=== PATIENT | female | born 1940 | race Caucasian/White ===

== ENCOUNTER → 2016-12-27 | Outpatient (CLI) | payer MEDICARE ==
[~2016-12-27] MED LIST: APIX5TAB PO; ASP81TEC PO; ASPI-992 PO; ASPI-999 PO; ATEN25TA PO; CEFD300C3 PO; CLOP75TA PO; DIGO250T PO; DILT300C51 PO; FOLI1TAB24 PO; FRSM20T; FURO-125 PO; FURO40TA4 PO; KCL10CCR; LISI-556 PO; METO50TA2 PO; POTA10TA36 PO; SIMV10TA3 PO; TRAM50TA2 PO; VIT1TABL54 PO
== END ==
LOC: CARD 10:45
PROVIDERS: ATTEND Nurse Practitioner Family
DX: I48.0 Paroxysmal atrial fibrillation (principal); I35.8 Other nonrheumatic aortic valve disorders; I25.10 Atherosclerotic heart disease of native coronary artery without angina pectoris; E78.4 Other hyperlipidemia; I10 Essential (primary) hypertension; M79.89 Other specified soft tissue disorders
CPT/HCPCS: 93306

== ENCOUNTER → 2016-12-31 | Outpatient (CLI) | payer MEDICARE ==
[~2016-12-31] VITALS: Ht 175.3 cm; Wt 116.6 kg
[~2016-12-31] MED LIST changes: -ASPI-992 PO; -ASPI-999 PO; -DIGO250T PO; -FURO-125 PO; -LISI-556 PO; -POTA10TA36 PO; +REGADENOSON 0.4 MG/5 ML SYR (LEXISCAN) IV ONE; -TRAM50TA2 PO
[2016-12-31] MEDS: CATHETER FLUSH 10 ML SYR IV PRN ×2 (07:18→09:11)
[2016-12-31 09:04] VITALS: BP 131/102
== END ==
LOC: CARD 07:06
PROVIDERS: ATTEND Nurse Practitioner Family
DX: I48.0 Paroxysmal atrial fibrillation (principal); I35.8 Other nonrheumatic aortic valve disorders; I25.10 Atherosclerotic heart disease of native coronary artery without angina pectoris; E78.4 Other hyperlipidemia; I10 Essential (primary) hypertension; M79.89 Other specified soft tissue disorders
CPT/HCPCS: 78452; 93017

== ENCOUNTER 2017-01-15 11:12 | Emergency (ER) | payer MEDICARE ==
[~2017-01-15] VITALS: Ht 167.6 cm; Wt 54.4 kg
[~2017-01-15 11:12] MED LIST changes: -REGADENOSON 0.4 MG/5 ML SYR (LEXISCAN) IV ONE
[2017-01-15] MEDS ORDERED: TRAM50TA2 PO (11:24)
[2017-01-15] MEDS ORDERED: LISI-556 PO (11:24)
--- OUTSIDE RECORDS SUMMARY | 2017-01-15 11:36 | XMS REPORT | Continuity of Care Document ---
Author Author [facility] Organization [facility] Address Unknown Phone Unavailable Allergies Active Description Code Type Severity Reaction Onset Reported/Identified Relationship to Patient Clinical Status Yes No Known Drug Allergies [id number] Drug Allergy Unknown N/ A 07/18/2009 Medications Problems Date Dx Coded Attending Type Code Diagnosis Diagnosed By 02/23/2010 Ot 518.89 02/23/2010 Ot 922.1 02/23/2010 Ot 959.11 02/23/2010 Ot E000.8 02/23/2010 Ot E817.9 09/25/2012 CB SOTO MD Ot 715.90 OSTEOARTHROS NOS-UNSPEC 09/25/2012 CB SOTO MD Ot 729.5 PAIN IN LIMB 09/25/2012 CB SOTO MD Ot V57.1 PHYSICAL THERAPY NEC 08/25/2013 LINCOLN CASANOVA Ot 280.9 IRON DEFIC ANEMIA NOS 08/25/2013 LINCOLN CASANOVA Ot 728.87 MUSCLE WEAKNESS (GENERALIZED) 08/25/2013 LINCOLN CASANOVA Ot 729.1 MYALGIA AND MYOSITIS NOS 08/25/2013 LINCOLN CASANOVA Ot V58.63 LONG-TERM(CURRENT)USE OF ANTIPLATELET/AN 08/25/2013 LINCOLN CASANOVA Ot V58.66 LONG-TERM (CURRENT) USE OF ASPIRIN 08/25/2013 LINCOLN CASANOVA Ot V58.69 OTH MED,LT,CURRENT USE 06/06/2014 LINDSEY SNIDER SITE INSPECTOR Ot 272.4 06/06/2014 LINDSEY SNIDER SITE INSPECTOR Ot 414.00 06/15/2014 VICENTA DURAN FACC, ARABELLA FACP CCDS Ot 272.4 06/15/2014 VICENTA DURAN FACC, ARABELLA FACP CCDS Ot 278.00 06/15/2014 VCIENTA DURAN FACBishop, ARABELLA FACP CCDS Ot 396.3 06/15/2014 VICENTA MD FACC, ALI FACP CCDS Ot 401.9 06/15/2014 VICENTA DURAN FAC, ALI FACP CCDS Ot 414.00 06/15/2014 VICENTA DURAN FAC, ALI FACP CCDS Ot 790.21 06/15/2014 VICENTA DURAN FAC, ALI FACP CCDS Ot 272.4 06/15/2014 VICENTA DURAN FAC, ALI FACP CCDS Ot 278.00 06/15/2014 VICENTA DURAN FAC, ALI FACP CCDS Ot 401.9 06/15/2014 VICENTA DURAN FAC, ALI FACP CCDS Ot 414.00 06/15/2014 VICENTA DURAN FAC, ALI FACP CCDS Ot 424.1 06/15/2014 VICENTA DURAN FAC, ARABELLA FACP CCDS Ot 790.21 06/15/2014 VICENTA DURAN [facility], ALI FACP CCDS Ot V85.35 08/17/2014 BAIMA, LINDSEY L SITE INSPECTOR Ot 272.4 08/17/2014 BAIMA, LINDSEY L SITE INSPECTOR Ot 401.9 08/17/2014 BAIMA, LINDSEY L SITE INSPECTOR Ot 414.00 08/17/2014 BAIMA, LINDSEY L SITE INSPECTOR Ot 427.31 09/09/2014 BAIMA, LINDSEY L SITE INSPECTOR Ot 272.4 09/09/2014 BAIMA, LINDSEY L SITE INSPECTOR Ot 401.9 09/09/2014 BAIMA, LINDSEY L SITE INSPECTOR Ot 414.00 09/09/2014 BAIMA, LINDSEY L SITE INSPECTOR Ot 427.31 10/13/2014 BAIMA, LINDSEY L SITE INSPECTOR Ot 401.9 10/13/2014 BAIMA, LINDSEY L SITE INSPECTOR Ot 414.9 10/13/2014 BAIMA, LINDSEY L SITE INSPECTOR Ot 424.1 10/13/2014 BAIMA, LINDSEY L SITE INSPECTOR Ot 427.31 10/13/2014 BAIMA, LINDSEY L SITE INSPECTOR Ot V58.61 02/02/2015 Ot 272.4 02/02/2015 Ot 414.01 02/02/2015 Ot V58.69 02/02/2015 Ot 272.4 02/02/2015 Ot 414.01 02/02/2015 Ot V58.69 02/02/2015 Ot 518.89 02/02/2015 Ot 272.4 02/02/2015 Ot 414.00 02/02/2015 Ot V58.69 02/02/2015 Ot 272.4 02/02/2015 Ot 401.9 02/02/2015 Ot 414.00 02/02/2015 Ot V58.69 02/02/2015 Ot 272.4 02/02/2015 Ot 401.9 02/02/2015 Ot V58.69 02/02/2015 Ot 424.1 02/02/2015 Ot 782.3 02/02/2015 Ot 793.2 02/02/2015 Ot 793.89 02/02/2015 Ot V76.12 02/02/2015 Ot 793.89 02/02/2015 Ot 793.89 02/02/2015 Ot V58.69 02/02/2015 Ot V72.63 02/02/2015 Ot 272.4 02/02/2015 Ot 401.9 02/02/2015 Ot 414.00 02/02/2015 Ot V58.69 02/02/2015 Ot 272.4 02/02/2015 Ot 414.00 02/02/2015 Ot V58.69 02/02/2015 Ot 401.9 02/02/2015 Ot 790.29 02/02/2015 Ot V58.69 02/02/2015 Ot 285.9 02/02/2015 BRITTANY DURAN, CB Briscoe Ot 285.9 02/02/2015 BRITTANY DURAN, CB Briscoe Ot 401.9 02/02/2015 BRITTANY DURAN, CB A Ot 790.29 02/02/2015 LINDSEY SNIDER SITE INSPECTOR Ot 272.4 02/02/2015 BRITTANY DURAN, CB Briscoe Ot 250.00 02/02/2015 BRITTANY DURAN, CB Briscoe Ot 401.9 02/02/2015 BRITTANY DURAN, CB A Ot V58.69 02/02/2015 JOCELYNE, BOBAN N Ot 282.40 02/02/2015 JOCELYNE, BOBAN N Ot 429.3 02/02/2015 JOCELYNE, BOBAN N Ot 457.1 02/02/2015 JOCELYNE, BOBAN N Ot 782.3 02/02/2015 TONI PATTERSON SITE INSPECTOR Ot 250.00 02/02/2015 TONI PATTERSON SITE INSPECTOR Ot 272.4 02/02/2015 TONI PATTERSON SITE INSPECTOR Ot V58.69 02/02/2015 VICENTA DURAN FACC, ALI FACP CCDS Ot 280.9 02/02/2015 VICENTA DURAN FACC, ALI FACP CCDS Ot 728.87 02/02/2015 VICENTA DURAN FACC, ALI FACP CCDS Ot 729.1 02/02/2015 VICENTA DURAN FACC, ALI FACP CCDS Ot V58.63 02/02/2015 VICENTA DURAN FACC, ALI FACP CCDS Ot V58.66 02/02/2015 VICENTA DURAN FACC, ALI FACP CCDS Ot V58.69 02/02/2015 OLAYINKA SNIDERHER L SITE INSPECTOR Ot 272.4 02/02/2015 AGATHA, LINDSEY L SITE INSPECTOR Ot 401.9 02/02/2015 AGATHA LINDSEY L SITE INSPECTOR Ot 414.00 02/02/2015 BRITTANY DURAN, CB A Ot 401.9 02/02/2015 LAURA SOTO MDY A Ot V58.69 02/02/2015 AGATHA LINDSEY L SITE INSPECTOR Ot 272.4 02/02/2015 AGATHA LINDSEY L SITE INSPECTOR Ot 414.00 02/02/2015 VICENTA DURAN FACC, ALI FACP CCDS Ot 272.4 02/02/2015 VICENTA DURAN FACC, ALI FACP CCDS Ot 278.00 02/02/2015 VICENTA DURAN FACC, ALI FACP CCDS Ot 396.3 02/02/2015 VICENTA DURAN FACC, ALI FACP CCDS Ot 401.9 02/02/2015 VICENTA DURAN FACC, ALI FACP CCDS Ot 414.00 02/02/2015 VICENTA DURAN FACC, ALI FACP CCDS Ot 790.21 02/02/2015 VICENTA DURAN FACC, ALI FACP CCDS Ot 272.4 02/02/2015 VICENTA DURAN FACC, ALI FACP CCDS Ot 278.00 02/02/2015 VICENTA DURAN FACC, ALI FACP CCDS Ot 401.9 02/02/2015 VICENTA DURAN FACC, ALI FACP CCDS Ot 414.00 02/02/2015 VICENTA DURAN FACC, ALI FACP CCDS Ot 424.1 02/02/2015 VICENTA DURAN FACC, ALI FACP CCDS Ot 790.21 02/02/2015 VICENTA DURAN FACC, ALI FACP CCDS Ot V85.35 02/02/2015 BAIMA, LINDSEY L SITE INSPECTOR Ot 272.4 02/02/2015 BAIMA, LINDSEY L SITE INSPECTOR Ot 401.9 02/02/2015 BAIMA, LINDSEY L SITE INSPECTOR Ot 414.00 02/02/2015 BAIMA, LINDSEY L SITE INSPECTOR Ot 424.1 02/02/2015 BAIMA, LINDSEY L SITE INSPECTOR Ot 427.31 02/02/2015 BAIMA, LINDSEY L SITE INSPECTOR Ot V58.61 02/02/2015 BAIMA, LINDSEY L SITE INSPECTOR Ot 272.4 02/02/2015 BAIMA, LINDSEY L SITE INSPECTOR Ot 401.9 02/02/2015 BAIMA, LINDSEY L SITE INSPECTOR Ot 414.00 02/02/2015 BAIMA, LINDSEY L SITE INSPECTOR Ot 427.31 02/02/2015 BAIMA, LINDSEY L SITE INSPECTOR Ot 401.9 02/02/2015 BAIMA, LINDSEY L SITE INSPECTOR Ot 414.9 02/02/2015 BAIMA, LINDSEY L SITE INSPECTOR Ot 424.1 02/02/2015 BAIMA, LINDSEY L SITE INSPECTOR Ot 427.31 02/02/2015 BAIMA, LINDSEY L SITE INSPECTOR Ot V58.61 02/02/2015 BAHMAN KATE MD Ot I88.9 NONSPECIFIC LYMPHADENITIS, UNSPECIFIED 02/02/2015 BAHMAN KATE MD Ot L03.116 CELLULITIS OF LEFT LOWER LIMB 02/02/2015 BAHMAN KATE MD Ot M79.89 OTHER SPECIFIED SOFT TISSUE DISORDERS 04/11/2015 AGATHA, LINDSEY L SITE INSPECTOR Ot I25.10 06/08/2015 Ot I73.9 06/08/2015 Ot R60.9 06/19/2015 Ot I73.9 06/19/2015 Ot R60.9 09/19/2015 BAIMA, LINDSEY L SITE INSPECTOR Ot E78.5 HYPERLIPIDEMIA, UNSPECIFIED 09/19/2015 BAIMA, LINDSEY L SITE INSPECTOR Ot I10 ESSENTIAL (PRIMARY) HYPERTENSION 09/19/2015 BAIMA LINDSEY L SITE INSPECTOR Ot I25.10 ATHSCL HEART DISEASE OF [place] CORONARY 09/19/2015 AGATHA LINDSEY L SITE INSPECTOR Ot I48.91 UNSPECIFIED ATRIAL FIBRILLATION 09/19/2015 BAIMARK LINDSEY L SITE INSPECTOR Ot I73.9 PERIPHERAL VASCULAR DISEASE, UNSPECIFIED 09/19/2015 LINDSEY SNIDER SITE INSPECTOR Ot R60.9 EDEMA, UNSPECIFIED 10/06/2015 LINDSEY SNIDER SITE INSPECTOR Ot E78.5 HYPERLIPIDEMIA, UNSPECIFIED 10/06/2015 LINDSEY SNIDER SITE INSPECTOR Ot I10 ESSENTIAL (PRIMARY) HYPERTENSION 10/06/2015 LINDSEY SNIDER SITE INSPECTOR Ot I25.10 ATHSCL HEART DISEASE OF [place] CORONARY 10/06/2015 LINDSEY SNIDER SITE INSPECTOR Ot I48.91 UNSPECIFIED ATRIAL FIBRILLATION 10/06/2015 LINDSEY SNIEDR SITE INSPECTOR Ot I73.9 PERIPHERAL VASCULAR DISEASE, UNSPECIFIED 10/06/2015 LINDSEY SNIDER SITE INSPECTOR Ot R60.9 EDEMA, UNSPECIFIED 03/19/2016 Ot 272.4 HYPERLIPIDEMIA NEC/NOS 03/19/2016 Ot 401.9 HYPERTENSION NOS 03/19/2016 Ot 414.00 CORON ATHEROSCLER NOS TYPE VESSEL, NATIV 03/19/2016 Ot V58.69 OTH MED,LT,CURRENT USE 03/19/2016 Ot 272.4 HYPERLIPIDEMIA NEC/NOS 03/19/2016 Ot 401.9 HYPERTENSION NOS 03/19/2016 Ot V58.69 OTH MED,LT,CURRENT USE 03/19/2016 Ot 424.1 AORTIC VALVE DISORDER 03/19/2016 Ot 782.3 EDEMA 03/19/2016 Ot 793.2 NOSP (ABN) FINDINGS ON RADIOLOGICAL OT 03/19/2016 Ot 793.89 OTH (ABN) FINDINGS ON RADIOLOGICAL EXAMI 03/19/2016 Ot V76.12 OTH SCREEN MAMMO-MALIGN NEOPLASM OF [place] 03/19/2016 Ot 793.89 OTH (ABN) FINDINGS ON RADIOLOGICAL EXAMI 03/19/2016 Ot 793.89 OTH (ABN) FINDINGS ON RADIOLOGICAL EXAMI 03/19/2016 Ot V58.69 OTH MED,LT,CURRENT USE 03/19/2016 Ot V72.63 PRE-PROCEDURAL LABORATORY EXAMINATION 03/19/2016 Ot 272.4 HYPERLIPIDEMIA NEC/NOS 03/19/2016 Ot 401.9 HYPERTENSION NOS 03/19/2016 Ot 414.00 CORON ATHEROSCLER NOS TYPE VESSEL, NATIV 03/19/2016 Ot V58.69 OTH MED,LT,CURRENT USE 03/19/2016 Ot 272.4 HYPERLIPIDEMIA NEC/NOS 03/19/2016 Ot 414.00 CORON ATHEROSCLER NOS TYPE VESSEL, NATIV 03/19/2016 Ot V58.69 OTH MED,LT,CURRENT USE 03/19/2016 Ot 401.9 HYPERTENSION NOS 03/19/2016 Ot 790.29 OTHER ABNORMAL GLUCOSE 03/19/2016 Ot V58.69 OTH MED,LT,CURRENT USE 03/19/2016 Ot 285.9 ANEMIA NOS 03/19/2016 BRITTANY DURAN, CB A Ot 285.9 ANEMIA NOS 03/19/2016 BRITTANY DURAN, CB A Ot 401.9 HYPERTENSION NOS 03/19/2016 BRITTANY DURAN, CB A Ot 790.29 OTHER ABNORMAL GLUCOSE 03/19/2016 LINDSEY SNIDER SITE INSPECTOR Ot 272.4 HYPERLIPIDEMIA NEC/NOS 03/19/2016 BRITTANY DURAN, CB Briscoe Ot 250.00 DIAB DAVID WO COMPL, TYPE II OR UNSPEC TY 03/19/2016 CB SOTO MD A Ot 401.9 HYPERTENSION NOS 03/19/2016 CB SOTO MD A Ot V58.69 OTH MED,LT,CURRENT USE 03/19/2016 LINCOLN CASANOVA Ot 282.40 THALASSEMIA, UNSPECIFIED 03/19/2016 LINCOLN CASANOVA Ot 429.3 CARDIOMEGALY 03/19/2016 LINCOLN CASANOVA Ot 457.1 OTHER LYMPHEDEMA 03/19/2016 LINCOLN CASANOVA Ot 782.3 EDEMA 03/19/2016 TONI PATTERSON SITE INSPECTOR Ot 250.00 DIAB DAVID WO COMPL, TYPE II OR UNSPEC TY 03/19/2016 TONI PATTERSON SITE INSPECTOR Ot 272.4 HYPERLIPIDEMIA NEC/NOS 03/19/2016 TONI PATTERSON SITE INSPECTOR Ot V58.69 OTH MED,LT,CURRENT USE 03/19/2016 VICENTA DURAN FACC, ARABELLA FACP CCDS Ot 280.9 IRON DEFIC ANEMIA NOS 03/19/2016 VICENTA DURAN FACC, ALI FACP CCDS Ot 728.87 MUSCLE WEAKNESS (GENERALIZED) 03/19/2016 VICENTA DURAN FACC, ALI FACP CCDS Ot 729.1 MYALGIA AND MYOSITIS NOS 03/19/2016 VICENTA DURAN FACC, ALI FACP CCDS Ot V58.63 LONG-TERM(CURRENT)USE OF ANTIPLATELET/AN 03/19/2016 ARABELLA YADAV MD, FACC FACP CCDS Ot V58.66 LONG-TERM (CURRENT) USE OF ASPIRIN 03/19/2016 VICENTA DURAN FACC, ALI FACP CCDS Ot V58.69 OTH MED,LT,CURRENT USE 03/19/2016 BAIMA, LINDSEY L SITE INSPECTOR Ot 272.4 HYPERLIPIDEMIA NEC/NOS 03/19/2016 BAIMA, LINDSEY L SITE INSPECTOR Ot 401.9 HYPERTENSION NOS 03/19/2016 BAIMA, LINDSEY L SITE INSPECTOR Ot 414.00 CORON ATHEROSCLER NOS TYPE VESSEL, NATIV 03/19/2016 CB SOTO MD Ot 401.9 HYPERTENSION NOS 03/19/2016 CB SOTO MD Ot V58.69 OTH MED,LT,CURRENT USE 03/19/2016 BAIMA, LINDSEY L SITE INSPECTOR Ot 272.4 HYPERLIPIDEMIA NEC/NOS 03/19/2016 BAIMA, LINDSEY L SITE INSPECTOR Ot 414.00 CORON ATHEROSCLER NOS TYPE VESSEL, NATIV 03/19/2016 VICENTA DURAN FACC, ALI FACP CCDS Ot 272.4 HYPERLIPIDEMIA NEC/NOS 03/19/2016 VICENTA DURAN FACC, ALI FACP CCDS Ot 278.00 OBESITY, NOS 03/19/2016 VICENTA DURAN FACC, ALI FACP CCDS Ot 396.3 MITRAL/AORTIC MECCA INSUFF 03/19/2016 VICENTA DURAN FACC, ALI FACP CCDS Ot 401.9 HYPERTENSION NOS 03/19/2016 VICENTA DURAN FACC, ALI FACP CCDS Ot 414.00 CORON ATHEROSCLER NOS TYPE VESSEL, NATIV 03/19/2016 VICENTA DURAN FACC, ALI FACP CCDS Ot 790.21 IMPAIRED FASTING GLUCOSE 03/19/2016 VICENTA DURAN FACC, ALI FACP CCDS Ot 272.4 HYPERLIPIDEMIA NEC/NOS 03/19/2016 VICENTA DURAN FACC, ALI FACP CCDS Ot 278.00 OBESITY, NOS 03/19/2016 VICENTA DURAN FACC, ALI FACP CCDS Ot 401.9 HYPERTENSION NOS 03/19/2016 VICENTA DURAN FACC, ALI FACP CCDS Ot 414.00 CORON ATHEROSCLER NOS TYPE VESSEL, NATIV 03/19/2016 VICENTA DURAN FACC, ALI FACP CCDS Ot 424.1 AORTIC VALVE DISORDER 03/19/2016 VICENTA DURAN FACC, ALI FACP CCDS Ot 790.21 IMPAIRED FASTING GLUCOSE 03/19/2016 VICENTA DURAN FACC, ALI FACP CCDS Ot V85.35 BODY MASS INDEX 35.0-35.9, ADULT 03/19/2016 BAIMA, LINDSEY L SITE INSPECTOR Ot 272.4 HYPERLIPIDEMIA NEC/NOS 03/19/2016 BAIMA, LINDSEY L SITE INSPECTOR Ot 401.9 HYPERTENSION NOS 03/19/2016 BAIMA, LINDSEY L SITE INSPECTOR Ot 414.00 CORON ATHEROSCLER NOS TYPE VESSEL, NATIV 03/19/2016 BAIMA, LINDSEY L SITE INSPECTOR Ot 424.1 AORTIC VALVE DISORDER 03/19/2016 BAIMA, LINDSEY L SITE INSPECTOR Ot 427.31 ATRIAL FIBRILLATION 03/19/2016 BAIMA, LINDSEY L SITE INSPECTOR Ot V58.61 ANTICOAGULANTS,LT,CURRENT USE 03/19/2016 BAIMA, LINDSEY L SITE INSPECTOR Ot 272.4 HYPERLIPIDEMIA NEC/NOS 03/19/2016 BAIMA, LINDSEY L SITE INSPECTOR Ot 401.9 HYPERTENSION NOS 03/19/2016 BAIMA, LINDSEY L SITE INSPECTOR Ot 414.00 CORON ATHEROSCLER NOS TYPE VESSEL, NATIV 03/19/2016 BAIMA, LINDSEY L SITE INSPECTOR Ot 427.31 ATRIAL FIBRILLATION 03/19/2016 BAIMA, LINDSEY L SITE INSPECTOR Ot 401.9 HYPERTENSION NOS 03/19/2016 BAIMA, LINDSEY L SITE INSPECTOR Ot 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 HRT DIS NOS 03/19/2016 BAIMA, LINDSEY L SITE INSPECTOR Ot 424.1 AORTIC VALVE DISORDER 03/19/2016 BAIMA, LINDSEY L SITE INSPECTOR Ot 427.31 ATRIAL FIBRILLATION 03/19/2016 BAIMA, LINDSEY L SITE INSPECTOR Ot V58.61 ANTICOAGULANTS,LT,CURRENT USE 03/19/2016 BAIMA, LINDSEY L SITE INSPECTOR Ot I25.10 ATHSCL HEART DISEASE OF [place] CORONARY 03/19/2016 Ot I73.9 PERIPHERAL VASCULAR DISEASE, UNSPECIFIED 03/19/2016 Ot R60.9 EDEMA, UNSPECIFIED 03/19/2016 BAIMA, LINDSEY L SITE INSPECTOR Ot E78.5 HYPERLIPIDEMIA, UNSPECIFIED 03/19/2016 BAIMA, LINDSEY L SITE INSPECTOR Ot I10 ESSENTIAL (PRIMARY) HYPERTENSION 03/19/2016 BAIMA, LINDSEY L SITE INSPECTOR Ot I25.10 ATHSCL HEART DISEASE OF [place] CORONARY 03/19/2016 BAIMA, LINDSEY L SITE INSPECTOR Ot I48.91 UNSPECIFIED ATRIAL FIBRILLATION 03/19/2016 BAIMA, LINDSEY L SITE INSPECTOR Ot I73.9 PERIPHERAL VASCULAR DISEASE, UNSPECIFIED 03/19/2016 LINDSEY SNIDER SITE INSPECTOR Ot R60.9 EDEMA, UNSPECIFIED 03/19/2016 VICENTA DURAN FACC, ALI FACP CCDS Ot E78.5 HYPERLIPIDEMIA, UNSPECIFIED 03/27/2016 VICENTA DURAN FACC, ALI FACP CCDS Ot E78.5 HYPERLIPIDEMIA, UNSPECIFIED 03/27/2016 VICENTA MD FACC, ALI FACP CCDS Ot I10 ESSENTIAL (PRIMARY) HYPERTENSION 03/27/2016 VICENTA DURAN FACC, ALI FACP CCDS Ot I25.10 ATHSCL HEART DISEASE OF [place] CORONARY 04/18/2016 VICENTA DURAN FACC, ALI FACP CCDS Ot E78.5 HYPERLIPIDEMIA, UNSPECIFIED 04/18/2016 VICENTA DURAN FACBishop, ALI FACP CCDS Ot I10 ESSENTIAL (PRIMARY) HYPERTENSION 04/18/2016 VICENTA DURAN FACC, ALI FACP CCDS Ot I25.10 ATHSCL HEART DISEASE OF [place] CORONARY 12/25/2016 Ot 272.4 HYPERLIPIDEMIA NEC/NOS 12/25/2016 Ot 401.9 HYPERTENSION NOS 12/25/2016 Ot V58.69 OTH MED,LT,CURRENT USE 12/25/2016 Ot 424.1 AORTIC VALVE DISORDER 12/25/2016 Ot 782.3 EDEMA 12/25/2016 Ot 793.2 NOSP (ABN) FINDINGS ON RADIOLOGICAL OT 12/25/2016 Ot 793.89 OTH (ABN) FINDINGS ON RADIOLOGICAL EXAMI 12/25/2016 Ot V76.12 OTH SCREEN MAMMO-MALIGN NEOPLASM OF [place] 12/25/2016 Ot 793.89 OTH (ABN) FINDINGS ON RADIOLOGICAL EXAMI 12/25/2016 Ot 793.89 OTH (ABN) FINDINGS ON RADIOLOGICAL EXAMI 12/25/2016 Ot V58.69 OTH MED,LT,CURRENT USE 12/25/2016 Ot V72.63 PRE-PROCEDURAL LABORATORY EXAMINATION 12/25/2016 Ot 272.4 HYPERLIPIDEMIA NEC/NOS 12/25/2016 Ot 401.9 HYPERTENSION NOS 12/25/2016 Ot 414.00 CORON ATHEROSCLER NOS TYPE VESSEL, NATIV 12/25/2016 Ot V58.69 OTH MED,LT,CURRENT USE 12/25/2016 Ot 272.4 HYPERLIPIDEMIA NEC/NOS 12/25/2016 Ot 414.00 CORON ATHEROSCLER NOS TYPE VESSEL, NATIV 12/25/2016 Ot V58.69 OTH MED,LT,CURRENT USE 12/25/2016 Ot 401.9 HYPERTENSION NOS 12/25/2016 Ot 790.29 OTHER ABNORMAL GLUCOSE 12/25/2016 Ot V58.69 OTH MED,LT,CURRENT USE 12/25/2016 Ot 285.9 ANEMIA NOS 12/25/2016 CB SOTO MD A Ot 285.9 ANEMIA NOS 12/25/2016 CB SOTO MD A Ot 401.9 HYPERTENSION NOS 12/25/2016 CB SOTO MD A Ot 790.29 OTHER ABNORMAL GLUCOSE 12/25/2016 LINDSEY SNIDER SITE INSPECTOR Ot 272.4 HYPERLIPIDEMIA NEC/NOS 12/25/2016 CB SOTO MD Ot 250.00 DIAB DAVID WO COMPL, TYPE II OR UNSPEC TY 12/25/2016 CB SOTO MD Ot 401.9 HYPERTENSION NOS 12/25/2016 CB SOTO MD Ot V58.69 OTH MED,LT,CURRENT USE 12/25/2016 LINCOLN CASANOVA Ot 282.40 THALASSEMIA, UNSPECIFIED 12/25/2016 LINCOLN CASANOVA N Ot 429.3 CARDIOMEGALY 12/25/2016 LINCOLN CASANOVA N Ot 457.1 OTHER LYMPHEDEMA 12/25/2016 LINCOLN CASANOVA N Ot 782.3 EDEMA 12/25/2016 TONI PATTERSON SITE INSPECTOR Ot 250.00 DIAB DAVID WO COMPL, TYPE II OR UNSPEC TY 12/25/2016 TONI PATTERSON SITE INSPECTOR Ot 272.4 HYPERLIPIDEMIA NEC/NOS 12/25/2016 TONI PATTERSON SITE INSPECTOR Ot V58.69 OTH MED,LT,CURRENT USE 12/25/2016 VICENTA DURAN FACC, ARABELLA FACP CCDS Ot 280.9 12/25/2016 VICENTA DURAN FACC, ARABELLA FACP CCDS Ot 728.87 12/25/2016 VICENTA DURAN FACC, ARABELLA FACP CCDS Ot 729.1 12/25/2016 VICENTA DURAN FACC, ARABELLA FACP CCDS Ot V58.63 12/25/2016 VICENTA DURAN FACC, ALI FACP CCDS Ot V58.66 12/25/2016 VICENTA DURAN FACC, ALI FACP CCDS Ot V58.69 12/25/2016 LINDSEY SNIDER SITE INSPECTOR Ot 272.4 HYPERLIPIDEMIA NEC/NOS 12/25/2016 BAIMA, LINDSEY L SITE INSPECTOR Ot 401.9 HYPERTENSION NOS 12/25/2016 BAIMA, LINDSEY L SITE INSPECTOR Ot 414.00 CORON ATHEROSCLER NOS TYPE VESSEL, NATIV 12/25/2016 CB SOTO MD Ot 401.9 HYPERTENSION NOS 12/25/2016 CB SOTO MD Ot V58.69 OTH MED,LT,CURRENT USE 12/25/2016 BAIMA, LINDSEY L SITE INSPECTOR Ot 272.4 HYPERLIPIDEMIA NEC/NOS 12/25/2016 BAIMA, LINDSEY L SITE INSPECTOR Ot 414.00 CORON ATHEROSCLER NOS TYPE VESSEL, NATIV 12/25/2016 VICENTA DURAN FACC, ALI FACP CCDS Ot 272.4 HYPERLIPIDEMIA NEC/NOS 12/25/2016 VICENTA DURAN FACC, ALI FACP CCDS Ot 278.00 OBESITY, NOS 12/25/2016 VICENTA DURAN FACC, ALI FACP CCDS Ot 396.3 MITRAL/AORTIC MECCA INSUFF 12/25/2016 VICENTA GRIJALVAC, ALI FACP CCDS Ot 401.9 HYPERTENSION NOS 12/25/2016 VICENTA GRIJALVAC, ALI FACP CCDS Ot 414.00 CORON ATHEROSCLER NOS TYPE VESSEL, NATIV 12/25/2016 VICENTA DURAN FACC, ALI FACP CCDS Ot 790.21 IMPAIRED FASTING GLUCOSE 12/25/2016 VICENTA DURAN FACC, ALI FACP CCDS Ot 272.4 HYPERLIPIDEMIA NEC/NOS 12/25/2016 VICENTA DURAN FACC, ALI FACP CCDS Ot 278.00 OBESITY, NOS 12/25/2016 VICENTA GRIJALVAC, ALI FACP CCDS Ot 401.9 HYPERTENSION NOS 12/25/2016 VICENTA GRIJALVAC, ALI FACP CCDS Ot 414.00 CORON ATHEROSCLER NOS TYPE VESSEL, NATIV 12/25/2016 VICENTA DURAN FACC, ALI FACP CCDS Ot 424.1 AORTIC VALVE DISORDER 12/25/2016 VICENTA GRIJALVAC, ALI FACP CCDS Ot 790.21 IMPAIRED FASTING GLUCOSE 12/25/2016 VICENTA GRIJALVAC, ALI FACP CCDS Ot V85.35 BODY MASS INDEX 35.0-35.9, ADULT 12/25/2016 BAIMA, LINDSEY L SITE INSPECTOR Ot 272.4 HYPERLIPIDEMIA NEC/NOS 12/25/2016 BAIMA, LINDSEY L SITE INSPECTOR Ot 401.9 HYPERTENSION NOS 12/25/2016 BAIMA, LINDSEY L SITE INSPECTOR Ot 414.00 CORON ATHEROSCLER NOS TYPE VESSEL, NATIV 12/25/2016 BAIMA, LINDSEY L SITE INSPECTOR Ot 424.1 AORTIC VALVE DISORDER 12/25/2016 BAIMA, LINDSEY L SITE INSPECTOR Ot 427.31 ATRIAL FIBRILLATION 12/25/2016 BAIMA, LINDSEY L SITE INSPECTOR Ot V58.61 ANTICOAGULANTS,LT,CURRENT USE 12/25/2016 BAIMA, LINDSEY L SITE INSPECTOR Ot 272.4 HYPERLIPIDEMIA NEC/NOS 12/25/2016 BAIMA, LINDSEY L SITE INSPECTOR Ot 401.9 HYPERTENSION NOS 12/25/2016 BAIMA, LINDSEY L SITE INSPECTOR Ot 414.00 CORON ATHEROSCLER NOS TYPE VESSEL, NATIV 12/25/2016 BAIMA, LINDSEY L SITE INSPECTOR Ot 427.31 ATRIAL FIBRILLATION 12/25/2016 BAIMA, LINDSEY L SITE INSPECTOR Ot 401.9 HYPERTENSION NOS 12/25/2016 BAIMA, LINDSEY L SITE INSPECTOR Ot 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 HRT DIS NOS 12/25/2016 BAIMA, LINDSEY L SITE INSPECTOR Ot 424.1 AORTIC VALVE DISORDER 12/25/2016 BAIMA, LINDSEY L SITE INSPECTOR Ot 427.31 ATRIAL FIBRILLATION 12/25/2016 BAIMA, LINDSEY L SITE INSPECTOR Ot V58.61 ANTICOAGULANTS,LT,CURRENT USE 12/25/2016 BAIMA, LINDSEY L SITE INSPECTOR Ot I25.10 ATHSCL HEART DISEASE OF [place] CORONARY 12/25/2016 Ot I73.9 PERIPHERAL VASCULAR DISEASE, UNSPECIFIED 12/25/2016 Ot R60.9 EDEMA, UNSPECIFIED 12/25/2016 BAIMA, LINDSEY L SITE INSPECTOR Ot E78.5 HYPERLIPIDEMIA, UNSPECIFIED 12/25/2016 BAIMA, LINDSEY L SITE INSPECTOR Ot I10 ESSENTIAL (PRIMARY) HYPERTENSION 12/25/2016 BAIMA, LINDSEY L SITE INSPECTOR Ot I25.10 ATHSCL HEART DISEASE OF [place] CORONARY 12/25/2016 BAIMA, LINDSEY L SITE INSPECTOR Ot I48.91 UNSPECIFIED ATRIAL FIBRILLATION 12/25/2016 BAIMA, LINDSEY L SITE INSPECTOR Ot I73.9 PERIPHERAL VASCULAR DISEASE, UNSPECIFIED 12/25/2016 BAIMA, LINDSEY L SITE INSPECTOR Ot R60.9 EDEMA, UNSPECIFIED 12/25/2016 VICENTA DURAN FACC, ARABELLA SCHUMACHER CCDS Ot E78.5 HYPERLIPIDEMIA, UNSPECIFIED 12/25/2016 VICENTA DURAN FACC, ARABELLA SCHUMACHER CCDS Ot I10 ESSENTIAL (PRIMARY) HYPERTENSION 12/25/2016 VICENTA DURAN FACC, ARABELLA SCHUMACHER CCDS Ot I25.10 ATHSCL HEART DISEASE OF [place] CORONARY 01/01/2017 BAILINDSEY FLORES L SITE INSPECTOR Ot E78.4 OTHER HYPERLIPIDEMIA 01/01/2017 BAILINDSEY FLORES L SITE INSPECTOR Ot I10 ESSENTIAL (PRIMARY) HYPERTENSION 01/01/2017 ABRAMLINDSEY FLORES L SITE INSPECTOR Ot I25.10 ATHSCL HEART DISEASE OF [place] CORONARY 01/01/2017 BAILINDSEY FLORES L SITE INSPECTOR Ot I35.8 OTHER NONRHEUMATIC AORTIC VALVE DISORDER 01/01/2017 BAIOLAYINKA FLORESHER L SITE INSPECTOR Ot I48.0 PAROXYSMAL ATRIAL FIBRILLATION 01/01/2017 BAIMARK LINDSEY L SITE INSPECTOR Ot M79.89 OTHER SPECIFIED SOFT TISSUE DISORDERS Procedures Results Encounters ACCT No. Visit Date/Time Discharge Status Pt. Type Provider Facility Loc./Unit Complaint [id number] 12/31/2016 07:06:00 2016 23:59:59 CLS Outpatient BAIMA, LINDSEY L SITE INSPECTOR Via [facility] CARD CAD [id number] 12/27/2016 10:45:00 2016 23:59:59 CLS Outpatient BAIMA, LINDSEY L SITE INSPECTOR [facility] CARD I48.0 I35.8 I25.10 [id number] 03/19/2016 07:50:00 2015 23:59:59 CLS Outpatient ARABELLA YADAV MD, FACC, FACP CCDS [facility] LAB CAD,HLD,HTN [id number] 03/19/2016 07:30:00 2015 07:30:00 CAN Preadmit ARABELLA YADAV MD, FACC, FACP CCDS [facility] ONC CAD,HLD,HTN [id number] 09/15/2015 07:36:00 2015 23:59:59 CLS Outpatient BAIMA, LINDSEY L SITE INSPECTOR [facility] LAB EDEMA,CLAUDICATION,AF,CAD [id number] 03/15/2015 06:56:00 2014 23:59:59 CLS Outpatient BAIMA, LINDSEY L SITE INSPECTOR [facility] LAB CAD [id number] 02/02/2015 08:54:00 2014 10:37:00 DIS Emergency LAVINIA DURAN, BAHMAN Worrell [facility] ER LEFT LEG/ANKLE SWELLING [id number] 09/08/2014 07:25:00 2014 23:59:59 CLS Outpatient BAIMA, LINDSEY L SITE INSPECTOR [facility] LAB AF,AORTIC VALVE SCLEROSIS [id number] 07/18/2014 09:08:00 2014 23:59:59 CLS Outpatient BAIMA, LINDSEY L SITE INSPECTOR [facility] CARD AFIB [id number] 06/07/2014 07:34:00 2014 23:59:59 CLS Outpatient BAIMA, LINDSEY L SITE INSPECTOR [facility] CARD AFIB [id number] 05/24/2014 07:55:00 2014 23:59:59 CLS Outpatient VICENTA DURAN FACC, ARABELLA SCHUMACHER CCDS [facility] CARD CAD HTN HLE [id number] 05/23/2014 10:32:00 2014 23:59:59 CLS Outpatient VICENTA DURAN FACC, ARABELLA SCHUMACHER CCDS [facility] CARD CAD,AORTIC VALVE SCLEROISIS , HTN,HLD,OBESITY [id number] 05/03/2014 07:20:00 2014 23:59:59 CLS Outpatient BAIMARK LINDSEY L SITE INSPECTOR [facility] LAB HLD,CAD [id number] 12/16/2013 07:22:00 2013 23:59:59 CLS Outpatient CB SOTO MD [facility] LAB HTN,NIDDM [id number] 09/30/2013 07:18:00 2013 23:59:59 CLS Outpatient BAIMA, LINDSEY L SITE INSPECTOR [facility] LAB [place],CAD,HYPERTENSION, HYPERLIPIDEMIA [id number] 07/28/2013 10:15:00 2013 00:01:00 DIS Outpatient LINCOLN CASANOVA [facility] ONC [id number] 07/28/2013 06:58:00 2013 23:59:59 CLS Outpatient YESENIA TONI Andujar SOCORRO [facility] LAB HYPERLIPIDEMIA,DM,PENITENTIARY MED USE [id number] 07/20/2013 09:12:00 2013 23:59:59 CLS Outpatient LINCOLN CASANOVA [facility] RAD THALASSEMIA LOWER EXT LYMPDEMA [id number] 03/26/2013 07:14:00 2012 23:59:59 CLS Outpatient CB SOTO MD [facility] LAB HTN,NIDDM,PENITENTIARY MED USAGE [id number] 11/30/2012 07:18:00 2012 23:59:59 CLS Outpatient LINDSEY SNIDER [facility] LAB HLP,STATIN [place] [id number] 11/04/2012 07:18:00 2012 23:59:59 CLS Outpatient CB SOTO MD [facility] LAB HTN,ABN GLUCOSE,ANEMIA [id number] 09/23/2012 09:38:00 2012 09:33:00 DIS Outpatient CB SOTO MD [facility] REHAB JANICE LEG PAIN,OSTEOARTHRITIS [id number] 05/18/2015 11:40:00 Document Registration [id number] 06/10/2012 08:24:00 Document Registration [id number] 06/05/2012 13:39:00 Document Registration [id number] 06/01/2012 07:22:00 Document Registration [id number] 02/13/2012 07:14:00 Document Registration [id number] 01/08/2012 09:56:00 Document Registration [id number] 01/07/2012 13:32:00 Document Registration [id number] 01/01/2012 10:13:00 Document Registration [id number] 12/19/2011 10:17:00 Document Registration [id number] 08/20/2011 08:12:00 Document Registration [id number] 07/23/2011 07:20:00 Document Registration [id number] 01/30/2011 06:34:00 Document Registration [id number] 07/18/2010 06:40:00 Document Registration [id number] 02/28/2010 13:28:00 Document Registration [id number] 02/23/2010 22:39:00 Document Registration [id number] 02/14/2010 06:35:00 Document Registration [id number] 09/12/2009 05:52:00 Document Registration
[2017-01-15 11:39] LABS: BASOPHILS % (AUTO) 1 % (0-10); EOSINOPHILS # (AUTO) 0.1 10^3/uL (0.0-0.3); EOSINOPHILS % (AUTO) 2 % (0-10); LYMPHOCYTES # (AUTO) 1.8 X 10^3 (1.0-4.0); LYMPHOCYTES % (AUTO) 25 % (12-44); MEAN CORPUSCULAR HEMOGLOBIN 18 PG (25-34); MEAN CORPUSCULAR HGB CONC 31 G/DL (32-36); MEAN CORPUSCULAR VOLUME 59 FL (80-99); MONOCYTES # (AUTO) 0.7 X 10^3 (0.0-1.0); MONOCYTES % (AUTO) 10 % (0-12); NEUTROPHILS # (AUTO) 4.4 X 10^3 (1.8-7.8); NEUTROPHILS % (AUTO) 63 % (42-75); PLATELET COUNT 289 10^3/uL (130-400); RED BLOOD COUNT 5.86 10^6/uL (4.35-5.85); RED CELL DISTRIBUTION WIDTH 19.1 % (10.0-14.5); WHITE BLOOD COUNT 6.9 10^3/uL (4.3-11.0)
[2017-01-15 11:51] LABS: ALANINE AMINOTRANSFERASE 46 U/L (0-55); ALBUMIN 4.3 GM/DL (3.2-4.5); ANION GAP 10 MMOL/L (5-14); ASPARTATE AMINO TRANSFERASE 37 U/L (5-34); BILIRUBIN,TOTAL 0.9 MG/DL (0.1-1.0); BLOOD UREA NITROGEN 15 MG/DL (7-18); BUN/CREATININE RATIO 20; CALCIUM 9.5 MG/DL (8.5-10.1); CARBON DIOXIDE 23 MMOL/L (21-32); CHLORIDE 108 MMOL/L (98-107); CREATININE SERUM 0.76 MG/DL (0.60-1.30); GFR ESTIMATED > 60; GLUCOSE 138 MG/DL (70-105); SODIUM 141 MMOL/L (135-145); TOTAL PROTEIN 7.2 GM/DL (6.4-8.2)
[2017-01-15 11:57] LABS: TROPONIN I < 0.30 NG/ML (<0.30)
--- NOTE | 2017-01-15 12:10 | ED Respiratory ---
General Chief Complaint: Respiratory Problems Stated Complaint: CHEST DISCOMFORT/SOB X 3 DAYS Nursing Triage Note: PT CO OF SOA AMBULATED TO ROOM 5, PT HR 136 PT CO OF SOA FOR A FEW DAYS.PT HAS LYMPHEDEMA IN LOWER EXT. Source: patient Exam Limitations: no limitations History of Present Illness Time seen by provider: 12:06 Initial Comments The patient is a 76-year-old white female known to me. She reports that over the last 3 days she is become increasingly short of breath. She had recently seen ARABELLA Ochoa in the office. She states that she had an echocardiogram and a cardiac stress test. She is known to have a heart murmur, atrial fibrillation on Eliquis, and a remote stent. She was scheduled to have a sleep apnea study and a coronary angiogram tentatively scheduled for next Friday. She has had chronic lymphedema bilaterally and is unable to state that there is more swelling. She has not specifically had chest pain. She states that she is gaining some 30 pounds over the last year but none recently. She states it is impossible for her to lie supine and breathe and sleep. Timing/Duration: week, getting worse Severity: moderate Prior Episodes/Possible Cause: occasional episodes Modifying Factors: Improves With Lying Down Associated Symptoms: other Allergies and Home Medications Allergies Coded Allergies: No Known Drug Allergies (Verified , 07/18/09) Home Medications Apixaban 5 Mg Tablet, 5 MG PO BID, #60 (Reported) Aspirin 81 Mg Tabec, 81 MG PO DAILY, (Reported) Cefdinir 300 Mg Capsule, 300 MG PO BID, #20 Prescribed by: BAHMAN KATE on 02/02/15 1028 Folic Acid 1 Mg Tablet, 1 MG PO DAILY, (Reported) Lisinopril 5 Mg Tablet, 5 MG PO DAILY, (Reported) Metoprolol Tartrate 50 Mg Tablet, 100 MG PO DAILY, (Reported) Tramadol HCl 50 Mg Tablet, 50 MG PO PRN, (Reported) Vit B12/Intrins Fact/Fa Cmb #2 1 Each Tablet, 1 TAB PO DAILY, Ref 0 (Reported) Constitutional: see HPI EENTM: no symptoms reported Respiratory: see HPI, orthopnea, short of breath Cardiovascular: palpitations Gastrointestinal: no symptoms reported Genitourinary: no symptoms reported Musculoskeletal: no symptoms reported Skin: no symptoms reported Psychiatric/Neurological: No Symptoms Reported Hematologic/Lymphatic: No Symptoms Reported Immunological/Allergic: no symptoms reported Past Kqqwbzt-Hdkbnu-Lsfmjc Hx Patient Social History Alcohol Use: Denies Use Recreational Drug Use: No Smoking Status: Never a Smoker Recent Foreign Travel: No Contact w/Someone Who Travel: No Recent Infectious Disease Expo: No Physical Abuse: No Sexual Abuse: No Immunizations Up To Date Date of Pneumonia Vaccine: Apr 21, 2013 Surgeries Surgeries: Orthopedic Cardiovascular Cardiac Disorders: Atrial Fibrillation, Hypertension Reproductive System Hx Reproductive Disorders: No Psychosocial Suicide Risk Score: 0 Physical Exam Vital Signs Vital Sign - Last 12Hours 01/15/17 11:15 Temp 97.5 Pulse 135 Resp 11 B/P (MAP) 164/116 Pulse Ox 96 O2 Delivery Room Air Capillary Refill : Less Than 3 Seconds General Appearance: mild distress Eyes: Bilateral Eye Normal Inspection HEENT: normal ENT inspection Neck: full range of motion Respiratory: decreased breath sounds (distant but no Rales wheezing or rhonchi) Cardiovascular: systolic murmur (grade 2 right and left second intercostal space), irregularly irregular Gastrointestinal: normal bowel sounds, non tender, no organomegaly 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, no motor/sensory deficits, alert, normal mood/affect, oriented x 3 Symmetric rubbery edema bilaterally to the knees and consistent with lymphedema Progress/Results/Core Measures Results/Orders Lab Results Laboratory Tests Test 01/15/17 11:19 01/15/17 12:40 Range/Units White Blood Count 6.9 4.3-11.0 10^3/uL Red Blood Count 5.86 H 4.35-5.85 10^6/uL Hemoglobin 10.8 L 11.5-16.0 G/DL Hematocrit 35 35-52 % Mean Corpuscular Volume 59 L 80-99 FL Mean Corpuscular Hemoglobin 18 L 25-34 PG Mean Corpuscular Hemoglobin Concent 31 L 32-36 G/DL Red Cell Distribution Width 19.1 H 10.0-14.5 % Platelet Count 289 130-400 10^3/uL Mean Platelet Volume 7.4-10.4 FL Neutrophils (%) (Auto) 63 42-75 % Lymphocytes (%) (Auto) 25 12-44 % Monocytes (%) (Auto) 10 0-12 % Eosinophils (%) (Auto) 2 0-10 % Basophils (%) (Auto) 1 0-10 % Neutrophils # (Auto) 4.4 1.8-7.8 X 10^3 Lymphocytes # (Auto) 1.8 1.0-4.0 X 10^3 Monocytes # (Auto) 0.7 0.0-1.0 X 10^3 Eosinophils # (Auto) 0.1 0.0-0.3 10^3/uL Basophils # (Auto) 0.0 0.0-0.1 10^3/uL Sodium Level 141 135-145 MMOL/L Potassium Level 4.0 3.6-5.0 MMOL/L Chloride Level 108 H 98-107 MMOL/L Carbon Dioxide Level 23 21-32 MMOL/L Anion Gap 10 5-14 MMOL/L Blood Urea Nitrogen 15 7-18 MG/DL Creatinine 0.76 0.60-1.30 MG/DL Estimat Glomerular Filtration Rate > 60 BUN/Creatinine Ratio 20 Glucose Level 138 H 70-105 MG/DL Calcium Level 9.5 8.5-10.1 MG/DL Total Bilirubin 0.9 0.1-1.0 MG/DL Aspartate Amino Transf (AST/SGOT) 37 H 5-34 U/L Alanine Aminotransferase (ALT/SGPT) 46 0-55 U/L Alkaline Phosphatase 60 40-136 U/L Troponin I < 0.30 <0.30 NG/ML Total Protein 7.2 6.4-8.2 GM/DL Albumin 4.3 3.2-4.5 GM/DL Magnesium Level 2.0 1.8-2.4 MG/DL My Orders Orders - BAHMAN KATE MD Cbc With Automated Diff (01/15/17 11:34) Comprehensive Metabolic Panel (01/15/17 11:34) Troponin I (01/15/17 11:34) Ua Culture If Indicated (01/15/17 11:34) Ekg Tracing (01/15/17 11:34) Chest 1 View, Ap/Pa Only (01/15/17 11:34) Furosemide Injection (Lasix Injection) (01/15/17 13:00) Magnesium (01/15/17 12:58) Medications Given in ED Current Medications Medications Dose Ordered Sig/Joao Route Start Time Stop Time Status Last Admin Dose Admin Furosemide 40 mg ONCE ONCE IVP 01/15/17 13:00 01/15/17 13:01 DC 01/15/17 13:07 40 MG Vital Signs/I&O Vital Sign - Last 12Hours 01/15/17 11:15 Temp 97.5 Pulse 135 Resp 11 B/P (MAP) 164/116 Pulse Ox 96 O2 Delivery Room Air Blood Pressure Mean: 132 Departure Communication (Admissions) Progress Notes 1255 discussed with ARABELLA Ochoa. We will give a dose of IV Lasix and observe. Impression Impression: Primary Impression: pulmonary edema Disposition: HOME, SELF-CARE Condition: Stable/Unchanged Departure-Patient Inst. Decision time for Depature: 13:35 Referrals: CB SOTO MD (PCP/Family) Primary Care Physician Add. Discharge Instructions: All discharge instructions reviewed with patient and/or family. Voiced understanding. Expect to have the several hours of urgent urination. Call ARABELLA Ochoa's office for an appointment tomorrow or Friday. Take Lasix provided you in the a.m. expect that for an hour or 2 you will need to stay close to a bathroom. Scripts Furosemide (Lasix) 20 Mg Tablet 20 MG PO each a.m., #10 TAB Prov: BAHMAN KATE MD 01/15/17 BAHMAN KATE MD Jan 15, 2017 12:10
--- NOTE | 2017-01-15 12:16 | Diagnostic Imaging Report ---
CLINICAL INDICATION: Patient complains of shortness of air. Patient has tachycardia. Patient has lymphedema of lower extremities. EXAM: Portable chest x-ray upright view. COMPARISONS: Chest x-ray dated 02/23/2010. FINDINGS: There is kbqlfoni-jm-ninrlm cardiomegaly seen which has increased compared to the prior study. There is minimal pulmonary vascular congestion. There is interval development of a small right pleural effusion. There is mild bibasilar atelectasis versus infiltrate. There is no pneumothorax. There are degenerative spurs seen throughout spine. IMPRESSION: 1: There is interval progression of cardiomegaly and minimal pulmonary vascular congestion concerning for congestive heart failure/cardiac decompensation. Given the size of the cardiac silhouette, pericardial effusion cannot be completely excluded. Echocardiogram may help better evaluate if clinically necessary. 2: There is interval development of a small right pleural effusion. 3: There is interval development of mild bibasilar atelectasis versus infiltrate. Dictated by: Dictated on workstation # [id number]
[2017-01-15] MEDS ORDERED: FUROSEMIDE 40 MG/4 ML INJ (LASIX) IVP ONE (13:00)
[2017-01-15] MEDS ORDERED: FURO-125 PO (13:38)
[2017-01-15 13:43] VITALS: BP 134/96
[2017-01-15 13:53] LABS: BILIRUBIN,URINE NEGATIVE (NEGATIVE); KETONES,URINE NEGATIVE (NEGATIVE); LEUKOCYTE ESTERASE ,URINE NEGATIVE (NEGATIVE); NITRITE,URINE NEGATIVE (NEGATIVE); PH,URINE 6 (5-9); PROTEIN,URINE NEGATIVE (NEGATIVE); UROBILINOGEN,URINE NORMAL (NORMAL)
[2017-01-15 14:00] LABS: SQUAMOUS EPITHELIAL CELL,UR RARE /HPF
== END 2017-01-15 13:43 | disposition home or self-care (01) ==
LOC: EDUNIT# 11:12 → ER 11:14
DX: J81.1 Chronic pulmonary edema (principal); I48.91 Unspecified atrial fibrillation; I10 Essential (primary) hypertension; Z79.82 Long term (current) use of aspirin
CPT/HCPCS: 36415; 71010; 80053; 81000; 83735; 84484; 85025; 93005; 96374

== ENCOUNTER 2017-01-16 19:59 | Outpatient (CLI) | payer MEDICARE ==
[~2017-01-16 19:59] MED LIST changes: +FURO-125 PO; +LISI-556 PO; +TRAM50TA2 PO
== END 2017-01-17 06:20 | disposition home or self-care (01) ==
LOC: SLEEP 19:59
PROVIDERS: ATTEND Otolaryngology Otolaryngology/Facial Plastic Surgery
DX: G47.33 Obstructive sleep apnea (adult) (pediatric) (principal)
CPT/HCPCS: 95810

== ENCOUNTER 2017-01-21 06:58 | Day surgery (SDC) | payer MEDICARE ==
[2017-01-21] VITALS (10 sets, daily range): BP systolic 120–130; BP diastolic 77–112
[~2017-01-21] VITALS: Ht 175.3 cm; Wt 116.1 kg
[~2017-01-21 06:58] MED LIST changes: +HEParin (CATH LAB) 2,000 ML IV ONE; +NS IV 1000 ML 1,000 ML ONE
[2017-01-21 07:29] LABS: MEAN CORPUSCULAR HEMOGLOBIN 19 PG (25-34); MEAN CORPUSCULAR HGB CONC 32 G/DL (32-36); MEAN CORPUSCULAR VOLUME 58 FL (80-99); PLATELET COUNT 321 10^3/uL (130-400); RED BLOOD COUNT 6.63 10^6/uL (4.35-5.85); RED CELL DISTRIBUTION WIDTH 19.6 % (10.0-14.5)
[2017-01-21] MEDS ORDERED: ASPI-992 PO (07:37)
[2017-01-21] MEDS ORDERED: POTA10TA36 PO (07:37)
[2017-01-21] MEDS ORDERED: APIX5TAB PO (07:37)
[2017-01-21] MEDS ORDERED: DIGO250T PO (07:37)
[2017-01-21] MEDS ORDERED: FURO40TA4 PO (07:37)
[2017-01-21 07:39] LABS: PROTHROMBIN TIME PATIENT 13.1 SEC (12.2-14.7)
[2017-01-21] MEDS ORDERED: NS IV 1000 ML 1,000 ML IV SCH ×2 (07:45→10:18)
[2017-01-21] MEDS ORDERED: INFLUENZA TRIvalent 2017-2018 0.5 ML/45 MCG SYR IM ONE (07:45)
[2017-01-21 07:50] LABS: ALBUMIN 4.7 GM/DL (3.2-4.5); CALCIUM 9.6 MG/DL (8.5-10.1); CREATININE SERUM 0.99 MG/DL (0.60-1.30); TOTAL PROTEIN 7.9 GM/DL (6.4-8.2)
[2017-01-21] MEDS ORDERED: fentaNYL INJECTION 100 MCG/2 ML AMP ONE ×2 (08:23→09:44)
[2017-01-21] MEDS ORDERED: MIDAZOLAM 5 MG/5 ML (VERSED) VIAL ONE (08:23)
[2017-01-21] MEDS ORDERED: diphenhydrAMINE 50 MG/ML INJ (BENADRYL) ONE (08:23)
[2017-01-21] MEDS ORDERED: MIDAZOLAM 2 MG/2 ML (VERSED) VIAL ONE (09:44)
--- NOTE | 2017-01-21 10:18 | Cardiac Procedure Note-CS/ASA ---
Pre-Procedure Note Pre-Op Procedure Note H&P Reviewed The H&P was reviewed, patient examined and no changes noted. Date H&P Reviewed: Jan 21, 2017 Time H&P Reviewed: 08:30 Conscious Sedation Pre-Proced Time Reviewed: 08:30 ASA Class: 3 Airway Mallampati Classification: (navajo appropriate class) I. II. III, IV Lungs Heart ASA score ASA 1: a normal healthy patient ASA 2: a patient with a mild systemic disease (mid diabetes, controlled hypertension, obesity ASA 3: a patient with a severe systemic disease that limits activity (angina , COPD, prior Myocardial infarction) ASA 4: a patient with an incapacitating disease that is a constant threat to life (CHF, renal failure) ASA 5: a moribund patient not expected to survive 24 hrs. (ruptured aneurysm) ASA 6: a declared brain patient whose organs are being harvested. For emergent operations, add the letter E after the classification Grade 2 Sedation Plan: Analgesia, Amnesia, Plan communicated to team members, Discussed options with patient/fam, Discussed risks with patient/fam Note The patient is an appropriate candidate to undergo the planned procedure, sedation, and anesthesia. The patient immediately re-assessed prior to indication. ARABELLA YADAV MD FACP FAC CCDS Jan 21, 2017 10:18
[2017-01-21] MEDS ORDERED: ASPI-999 PO (10:21)
--- NOTE | 2017-01-21 10:21 | Discharge Inst-Post CATH ---
Discharge Inst-CATH Post Cardiac Cath D/C Inst Follow Up/Plan F/u with Dr Peguero next week CARDIAC CATH DISCHARGE INSTRUCTIONS *Hold Metformin for 48 hours post heart cath. ACTIVITY * Go Home directly and rest. * Limit activity of the leg (or wrist if it was used) for 7 days including aerobics, swimming, jogging, bicycling, etc. * Restrict stair-climbing for 7 days if possible, if not, climb up with your non -cath leg, then bring together on the same step. * Avoid lifting, pushing, pulling or excessive movement of the affected extremity for 7 days. * Customary sexual activity may be resumed after 2 days-use caution not to use a position that strains or causes pain to the affected extremity. * No driving for 24 hours. * NO SMOKING. * Avoid straining for bowel movements for 7 days. * Gentle walking on level ground is allowed. * Returning to work will depend on the type of procedure and the results. Your doctor will discuss this with you. CALL YOUR DOCTOR FOR ANY OF THE FOLLOWING: *If bleeding from the puncture site occurs- Apply gentle pressure to site with clean cloth and call your doctor or EMS. * If a knot or lump forms under the skin, increases in size, or causes pain. * If bruising appears to be worsening or moving further down your leg instead of disappearing. * Temperature above 101 F. CARE OF YOUR GROIN INCISION; * Bruising or purple discoloration of the skin near the puncture site is common. * You may shower only, no bathtub bathing for 5 days. Be careful to avoid slipping as your leg may feel stiff. * If a closure device was used on your femoral artery, please see the attached guide regarding care of the device and your leg. * REMOVE the dressing from your groin the next day after your procedure in the shower. CARE OF YOUR WRIST INCISION; * Bruising or purple discoloration of the skin near the puncture site is common. * You may shower. * DO NOT submerge wrist. * Remove dressing in 24 hours. ARABELLA PEGUERO MD [facility] Jan 21, 2017 10:21
--- NOTE | 2017-01-21 10:22 | Discharge Inst-Cardiology ---
Discharge Inst-Cardiac Discharge Medications New Medications: Aspirin (Aspirin) 81 Mg Tab.chew 81 MG PO DAILY, #90 TAB 3 Refills Continued Medications: Apixaban (Eliquis) 5 Mg Tablet 5 MG PO BID, TAB Aspirin/Acetaminophen/Caffeine (Excedrin Extra Strength Caplet) 1 Each Tablet 1 EACH PO PRN PRN for PAIN-MILD, TAB Digoxin (Digoxin) 250 Mcg Tablet 250 MCG PO DAILY, TAB Folic Acid (Folic Acid) 1 Mg Tablet 1 MG PO DAILY, TAB Furosemide (Furosemide) 40 Mg Tablet 40 MG PO DAILY, TAB Lisinopril (Lisinopril) 5 Mg Tablet 5 MG PO DAILY, TAB Metoprolol Tartrate (Metoprolol Tartrate) 50 Mg Tablet 100 MG PO DAILY, TAB Potassium Chloride (Potassium Chloride) 10 Meq Tab.er.prt 10 MEQ PO DAILY Tramadol HCl (Tramadol HCl) 50 Mg Tablet 50 MG PO Q6HR PRN for PAIN-MILD, TAB Discontinued Medications: Aspirin (Aspirin Ec 81 Mg) 81 Mg Tabec 81 MG PO DAILY Patient Instructions Patient Instructions: Change aspirin to chewable aspirin 81 mg daily ARABELLA YADAV MD FACP FAC CCDS Jan 21, 2017 10:22
[2017-01-21] MEDS ORDERED: PATIENT MAY USE OWN MEDS, ALL PO SCH (10:30)
--- NOTE | 2017-01-21 11:59 | CARDIAC CATHETERIZATION ---
DATE OF SERVICE: 01/21/2017 HISTORY OF PRESENT ILLNESS: The patient is a 76-year-old lady with cardiomyopathy that has been diagnosed relatively recently. Cardiac catheterization was carried out today after having obtained an informed consent. PROCEDURE: She was brought to the cardiac catheterization laboratory in a fasting state. The right groin was prepared and draped in the usual sterile fashion. Lidocaine 1% local anesthesia. Modified Seldinger technique was used to advance a 5-Georgian sheath into the right femoral artery. A 5-Georgian JL4 catheter used for left coronary angiography. Right coronary angiography was very difficult. We used multiple catheters including JR4, Glynn right, AL2, AR mod, and multipurpose catheters. None of these could selectively engage the right coronary artery. We got fairly good views with nonselective engagement with the AL2 catheter. We used a 5-Georgian pigtail catheter to carry out aortic root angiography. We made multiple attempts to cross the aortic valve for left ventricular angiography, but were not able to do so. The patient was getting quite uncomfortable on the table, despite medications and we decided to stop further attempts. At the end of the procedure, Mynx was used to achieve hemostasis following sheath removal. Angiography of the right femoral artery had been carried out at the time of the sheath insertion. She was transferred to the cardiac catheterization laboratory in stable condition. HEMODYNAMICS: Ascending aortic pressure was 113/84 with a mean of 74 mmHg. We were not able to cross the aortic valve. AORTIC ROOT ANGIOGRAPHY: Aortic root angiography indicates mild to moderate dilation of the ascending aorta and the aortic arch. There does not appear to be aneurysm formation. The aorta appears on unraveled. The aortic valve leaflets exhibit diminished but fair leaflet excursion. There is moderate aortic valve calcification. There appears to be mild aortic regurgitation. CORONARY ANGIOGRAPHY: There is moderate proximal coronary calcification. Left main coronary artery does not exhibit significant obstructive disease. Left anterior descending artery has a widely patent stent in its mid portion that is known to be almost 3 x 16 mm stent placed in 2009. The first diagonal branch of the left anterior descending artery is of a relatively small caliber and has a relatively long up to 80% stenosis in its proximal portion. The left circumflex artery has mild diffuse plaque. The right coronary artery appears dominant and does not exhibit significant disease. CONCLUSIONS: 1. Coronary artery disease as outlined above. There is a widely patent stent in the mid left anterior descending artery. This is known to be Promus 3.0 x 16 mm stent placement in 2010. The first diagonal branch of the left anterior descending artery is a relatively small caliber and has a relatively long 80% stenosis in its proximal portion. 2. The right coronary and the left circumflex artery have diffuse mild to moderate disease. 3. Mild to moderate dilatation of the ascending aorta and the aortic arch and unfolding of the aortic arch. 4. Aortic valve sclerosis and mild aortic regurgitation is exhibited on aortic root angiography. DISCUSSION AND RECOMMENDATIONS: Based on results of the study, it appears appropriate to continue a conservative approach. The first diagonal branch does have disease, but the vessel is of a relatively small caliber with a relatively long lesion and medical therapy appears to be the best option at this time. We have advised close continuing outpatient followup. Job ID: [id number] DocumentID: [id number] Dictated Date: 01/21/2017 10:13:46 Veneer Sander Date: 01/21/2017 11:58:37 Dictated By: ARABELLA YADAV MD, MA, FACP, FACC,
== END 2017-01-21 13:30 | disposition home or self-care (01) ==
LOC: CATH 06:58 → SURG 10:24 → CATH 13:30
PROVIDERS: ATTEND Internal Medicine Cardiovascular Disease
DX: I42.0 Dilated cardiomyopathy (principal); I25.10 Atherosclerotic heart disease of native coronary artery without angina pectoris; I35.1 Nonrheumatic aortic (valve) insufficiency; I48.2 Chronic atrial fibrillation; I10 Essential (primary) hypertension; E66.9 Obesity, unspecified; R73.09 Other abnormal glucose; Z68.37 Body mass index [BMI] 37.0-37.9, adult; Z79.899 Other long term (current) drug therapy; Z79.01 Long term (current) use of anticoagulants; Z95.5 Presence of coronary angioplasty implant and graft
CPT/HCPCS: 36415; 80053; 80061; 85027; 85610; 85730; 87081; 93005; 93454; 93567

== ENCOUNTER → 2017-01-31 | Outpatient (CLI) | payer MEDICARE ==
[~2017-01-31] MED LIST changes: +ASPI-992 PO; +ASPI-999 PO; +DIGO250T PO; -HEParin (CATH LAB) 2,000 ML IV ONE; -NS IV 1000 ML 1,000 ML ONE; +POTA10TA36 PO
[2017-01-31 12:49] LABS: ANION GAP 13 MMOL/L (5-14); BLOOD UREA NITROGEN 24 MG/DL (7-18); BUN/CREATININE RATIO 29; CALCIUM 9.8 MG/DL (8.5-10.1); CARBON DIOXIDE 22 MMOL/L (21-32); CHLORIDE 104 MMOL/L (98-107); CREATININE SERUM 0.84 MG/DL (0.60-1.30); GFR ESTIMATED > 60; GLUCOSE 168 MG/DL (70-105); MAGNESIUM 1.7 MG/DL (1.8-2.4); POTASSIUM 4.2 MMOL/L (3.6-5.0); SODIUM 139 MMOL/L (135-145)
[2017-01-31 12:56] LABS: DIGOXIN 0.72 NG/ML (0.80-2.00)
== END ==
LOC: LAB 12:16
PROVIDERS: ATTEND Nurse Practitioner Family
DX: I50.22 Chronic systolic (congestive) heart failure (principal); I48.0 Paroxysmal atrial fibrillation
CPT/HCPCS: 36415; 80048; 80162; 83735

== ENCOUNTER → 2017-04-04 | Outpatient (CLI) | payer MEDICARE ==
[~2017-04-04] MED LIST changes: +METO50TA15 PO; -METO50TA2 PO
[2017-04-04 07:47] LABS: MAGNESIUM 1.9 MG/DL (1.8-2.4)
[2017-04-04 07:59] LABS: ANION GAP 13 MMOL/L (5-14); BLOOD UREA NITROGEN 14 MG/DL (7-18); BUN/CREATININE RATIO 18; CALCIUM 9.9 MG/DL (8.5-10.1); CARBON DIOXIDE 24 MMOL/L (21-32); CHLORIDE 101 MMOL/L (98-107); CREATININE SERUM 0.79 MG/DL (0.60-1.30); GFR ESTIMATED > 60; GLUCOSE 259 MG/DL (70-105); POTASSIUM 4.3 MMOL/L (3.6-5.0); SODIUM 138 MMOL/L (135-145)
[2017-04-04 08:00] LABS: DIGOXIN 0.47 NG/ML (0.80-2.00)
== END ==
LOC: LAB 07:24
PROVIDERS: ATTEND Internal Medicine Cardiovascular Disease
DX: I48.0 Paroxysmal atrial fibrillation (principal); I42.0 Dilated cardiomyopathy; E78.4 Other hyperlipidemia; I50.21 Acute systolic (congestive) heart failure; I25.10 Atherosclerotic heart disease of native coronary artery without angina pectoris; I11.0 Hypertensive heart disease with heart failure; R73.01 Impaired fasting glucose; E66.09 Other obesity due to excess calories
CPT/HCPCS: 36415; 80048; 80162; 83735

== ENCOUNTER → 2017-04-30 | Outpatient (CLI) | payer MEDICARE | LOC: CARD 11:35 | PROVIDERS: ATTEND Internal Medicine Cardiovascular Disease | DX: I11.0 Hypertensive heart disease with heart failure (principal); I50.21 Acute systolic (congestive) heart failure; I48.0 Paroxysmal atrial fibrillation; I25.10 Atherosclerotic heart disease of native coronary artery without angina pectoris; I42.0 Dilated cardiomyopathy; E78.4 Other hyperlipidemia; R73.01 Impaired fasting glucose; E66.09 Other obesity due to excess calories | CPT/HCPCS: 93306 ==

== ENCOUNTER 2017-05-02 14:15 | Observation (INO) | payer MEDICARE ==
[~2017-05-02] VITALS: Ht 175.3 cm; Wt 105.7 kg
[2017-05-02] MEDS ORDERED: NS IV 1000 ML 1,000 ML IV ONE (15:34)
[2017-05-02] MEDS ORDERED: inSUlin (REGULAR) HUMAN 1 UNIT/0.01 ML (CHARGE PER UNIT) IV STA (15:34)
[2017-05-02 15:42] LABS: BILIRUBIN,URINE NEGATIVE (NEGATIVE); CLARITY,URINE CLEAR; COLOR,URINE YELLOW; GLUCOSE, URINE (UA) 4+ (NEGATIVE); KETONES,URINE 2+ (NEGATIVE); LEUKOCYTE ESTERASE ,URINE 1+ (NEGATIVE); NITRITE,URINE NEGATIVE (NEGATIVE); PH,URINE 5 (5-9); PROTEIN,URINE NEGATIVE (NEGATIVE); UROBILINOGEN,URINE NORMAL (NORMAL)
[2017-05-02 15:49] LABS: BASOPHILS % (AUTO) 0 % (0-10); EOSINOPHILS # (AUTO) 0.1 10^3/uL (0.0-0.3); EOSINOPHILS % (AUTO) 1 % (0-10); HEMATOCRIT 38 % (35-52); HEMOGLOBIN 12.3 G/DL (11.5-16.0); LYMPHOCYTES # (AUTO) 1.7 X 10^3 (1.0-4.0); LYMPHOCYTES % (AUTO) 18 % (12-44); MEAN CORPUSCULAR HEMOGLOBIN 19 PG (25-34); MEAN CORPUSCULAR HGB CONC 33 G/DL (32-36); MEAN CORPUSCULAR VOLUME 57 FL (80-99); MONOCYTES # (AUTO) 0.9 X 10^3 (0.0-1.0); MONOCYTES % (AUTO) 9 % (0-12); NEUTROPHILS # (AUTO) 7.2 X 10^3 (1.8-7.8); NEUTROPHILS % (AUTO) 73 % (42-75); PLATELET COUNT 285 10^3/uL (130-400); RED CELL DISTRIBUTION WIDTH 20.3 % (10.0-14.5); WHITE BLOOD COUNT 9.9 10^3/uL (4.3-11.0)
[2017-05-02 15:58] LABS: BACTERIA,URINE FEW /HPF
[2017-05-02 16:16] LABS: ALBUMIN 4.3 GM/DL (3.2-4.5); BILIRUBIN,TOTAL 1.1 MG/DL (0.1-1.0); CALCIUM 9.5 MG/DL (8.5-10.1); CREATININE SERUM 1.26 MG/DL (0.60-1.30); PHOSPHORUS 3.5 MG/DL (2.3-4.7); POTASSIUM 4.4 MMOL/L (3.6-5.0); TOTAL PROTEIN 7.4 GM/DL (6.4-8.2)
--- NOTE | 2017-05-02 16:46 | ED General ---
General Chief Complaint: Glucose Problems Stated Complaint: BLOOD SUGAR HIGH Nursing Triage Note: Pt reports increasingly high blood sugars over the past week. Pt reports she has never had issues with her blood sugar before now. Pt reports sugar of 539 last night and 401 this morning at home. Pt had 2 "HI" readings this afternoon at home. Pt also c/o vision changes over past week. Nursing Sepsis Screen: No Definite Risk Source of Information: Patient Exam Limitations: No Limitations History of Present Illness Time Seen by Provider: 16:25 Initial Comments Here with report of increasing blood sugars this week despite treatment. Apparently seen at her primary care doctor's office, Dr. Hampton, this week and started on metformin. This was increased this week and despite this her sugars are still increasing. She had 2 readings of high today. Complains of vision changes over the past week. Complains of nausea but no vomiting. Denies dysuria or breathing problems. Denies recent fevers or other illnesses. Timing/Duration: 1 Week, Getting Worse Severity: Moderate Associated Systoms: No Chest Pain, No Cough, No Fever/Chills, Nausea/Vomiting, No Shortness of Air, No Weakness Allergies and Home Medications Allergies Coded Allergies: No Known Drug Allergies (Verified , 07/18/09) Home Medications Apixaban 5 Mg Tablet, 5 MG PO BID, (Reported) Aspirin 81 Mg Tab.chew, 81 MG PO DAILY, #90 Ref 3 Prescribed by: ARABELLA YADAV on 01/21/17 1021 Aspirin/Acetaminophen/Caffeine 1 Each Tablet, 1 EACH PO PRN PRN for PAIN-MILD, ( Reported) Digoxin 250 Mcg Tablet, 250 MCG PO DAILY, (Reported) Folic Acid 1 Mg Tablet, 1 MG PO DAILY, (Reported) Furosemide 40 Mg Tablet, 40 MG PO DAILY, (Reported) Lisinopril 5 Mg Tablet, 5 MG PO DAILY, (Reported) Metoprolol Tartrate 50 Mg Tablet, 100 MG PO DAILY, (Reported) Potassium Chloride 10 Meq Tab.er.prt, 10 MEQ PO DAILY, (Reported) Tramadol HCl 50 Mg Tablet, 50 MG PO Q6HR PRN for PAIN-MILD, (Reported) Constitutional: see HPI, No chills, No fever EENTM: see HPI, double vision, No nose congestion Respiratory: No short of breath, No wheezing Cardiovascular: No chest pain, No edema Gastrointestinal: No abdominal pain, nausea, No vomiting Genitourinary: no symptoms reported Musculoskeletal: no symptoms reported All Other Systems Reviewed Negative Unless Noted: Yes Past Ljvcdct-Zxczuv-Epjjok Hx Patient Social History Alcohol Use: Denies Use Recreational Drug Use: No Smoking Status: Never a Smoker Recent Foreign Travel: No Contact w/Someone Who Travel: No Recent Infectious Disease Expo: No Recent Hopitalizations: No Physical Abuse: No Sexual Abuse: No Mistreated: No Fear: No Immunizations Up To Date Date of Pneumonia Vaccine: Apr 21, 2013 Surgeries History of Surgeries: Yes Surgeries: Orthopedic Respiratory History of Respiratory Disorde: No (RECENTLY DIAGNOSED, HASN'T HAD TIME TO GET CPAP SET UP) Respiratory Disorders: Sleep Apnea Cardiovascular History of Cardiac Disorders: Yes (ANEMIA-THALACEMIA MINOR) Cardiac Disorders: Atrial Fibrillation, Hypertension Neurological History of Neurological Disord: No Reproductive System Hx Reproductive Disorders: No Gastrointestinal History of Gastrointestinal Di: No Musculoskeletal History of Musculoskeletal Dis: No Endocrine History of Endocrine Disorders: No Psychosocial History of Psychiatric Problem: No Suicide Risk Score: 0 Blood Transfusions History of Blood Disorders: No Reviewed Nursing Assessment Reviewed/Agree w Nursing PMH: Yes Family Medical History Significant Family History: No Pertinent Family Hx Physical Exam Vital Signs Vital Sign - Last 12Hours 05/02/17 15:01 Temp 99.4 Pulse 100 Resp 18 B/P (MAP) 111/78 (89) Pulse Ox 96 O2 Delivery Room Air Capillary Refill : Less Than 3 Seconds General Appearance: No Apparent Distress, WD/WN HEENT: PERRL/EOMI, Pharynx Normal Neck: Non Tender, Supple Respiratory: Lungs Clear, Normal Breath Sounds Cardiovascular: Regular Rate, Rhythm, No Murmur Gastrointestinal: Non Tender, Soft Back: Normal Inspection, No CVA Tenderness, No Vertebral Tenderness Extremity: Normal Range of Motion, Non Tender Neurologic/Psychiatric: Alert, Oriented x3, No Motor/Sensory Deficits Skin: Normal Color, Warm/Dry Progress/Results/Core Measures Suspected Sepsis Recent Fever Within 48 Hours: Yes Infection Criteria Present: None New/Unexplained Altered Menta: No Sepsis Screen: No Definite Risk Sepsis Diagnosis: SIRS Temperature:99.4 Pulse: 100 Respiratory Rate: 18 Laboratory Tests 05/02/17 15:27: White Blood Count 9.9 Blood Pressure 111 /78 Mean: 89 Laboratory Tests 05/02/17 15:27: Creatinine 1.26, Platelet Count 285, Total Bilirubin 1.1H Results/Orders Lab Results Laboratory Tests Test 05/02/17 14:58 05/02/17 15:16 05/02/17 15:27 05/02/17 16:16 Range/Units Glucometer 462 *H 383 H 70-110 MG/DL Urine Color YELLOW Urine Clarity CLEAR Urine pH 5 5-9 Urine Specific [place] 1.010 L 1.016-1.022 Urine Protein NEGATIVE NEGATIVE Urine Glucose (UA) 4+ H NEGATIVE Urine Ketones 2+ H NEGATIVE Urine Nitrite NEGATIVE NEGATIVE Urine Bilirubin NEGATIVE NEGATIVE Urine Urobilinogen NORMAL NORMAL MG/DL Urine Leukocyte Esterase 1+ H NEGATIVE Urine RBC (Auto) NEGATIVE NEGATIVE Urine RBC NONE /HPF Urine WBC 2-5 /HPF Urine Squamous Epithelial Cells 2-5 /HPF Urine Crystals NONE /LPF Urine Bacteria FEW H /HPF Urine Casts NONE /LPF Urine Mucus NEGATIVE /LPF Urine Culture Indicated NO White Blood Count 9.9 4.3-11.0 10^3/uL Red Blood Count 6.60 H 4.35-5.85 10^6/uL Hemoglobin 12.3 11.5-16.0 G/DL Hematocrit 38 35-52 % Mean Corpuscular Volume 57 L 80-99 FL Mean Corpuscular Hemoglobin 19 L 25-34 PG Mean Corpuscular Hemoglobin Concent 33 32-36 G/DL Red Cell Distribution Width 20.3 H 10.0-14.5 % Platelet Count 285 130-400 10^3/uL Mean Platelet Volume 7.4-10.4 FL Neutrophils (%) (Auto) 73 42-75 % Lymphocytes (%) (Auto) 18 12-44 % Monocytes (%) (Auto) 9 0-12 % Eosinophils (%) (Auto) 1 0-10 % Basophils (%) (Auto) 0 0-10 % Neutrophils # (Auto) 7.2 1.8-7.8 X 10^3 Lymphocytes # (Auto) 1.7 1.0-4.0 X 10^3 Monocytes # (Auto) 0.9 0.0-1.0 X 10^3 Eosinophils # (Auto) 0.1 0.0-0.3 10^3/uL Basophils # (Auto) 0.0 0.0-0.1 10^3/uL Sodium Level 130 L 135-145 MMOL/L Potassium Level 4.4 3.6-5.0 MMOL/L Chloride Level 91 L 98-107 MMOL/L Carbon Dioxide Level 24 21-32 MMOL/L Anion Gap 15 H 5-14 MMOL/L Blood Urea Nitrogen 17 7-18 MG/DL Creatinine 1.26 0.60-1.30 MG/DL Estimat Glomerular Filtration Rate 41 BUN/Creatinine Ratio 13 Glucose Level 485 *H 70-105 MG/DL Calcium Level 9.5 8.5-10.1 MG/DL Phosphorus Level 3.5 2.3-4.7 MG/DL Magnesium Level 2.0 1.8-2.4 MG/DL Total Bilirubin 1.1 H 0.1-1.0 MG/DL Aspartate Amino Transf (AST/SGOT) 20 5-34 U/L Alanine Aminotransferase (ALT/SGPT) 25 0-55 U/L Alkaline Phosphatase 70 40-136 U/L C-Reactive Protein High Sensitivity 1.24 H 0.00-0.50 MG/DL Total Protein 7.4 6.4-8.2 GM/DL Albumin 4.3 3.2-4.5 GM/DL Test 05/02/17 16:57 Range/Units Glucometer 345 H 70-110 MG/DL My Orders Orders - ADELE MCCARTY MD Accucheck Stat ONCE (05/02/17 15:09) Saline Lock/Iv-Start (05/02/17 15:34) Ns Iv 1000 Ml (Sodium Chloride 0.9%) (05/02/17 15:34) Insulin (Regular) Human (Humulin R (Per (05/02/17 15:34) Cbc With Automated Diff (05/02/17 15:34) Comprehensive Metabolic Panel (05/02/17 15:34) Hs C Reactive Protein (05/02/17 15:34) Magnesium (05/02/17 15:34) Ua Culture If Indicated (05/02/17 15:34) Phosphorus (05/02/17 15:34) Ondansetron Injection (Zofran Injectio (05/02/17 17:00) Cho 60g/M 3snack (16-2000 Gabino) (05/02/17 Dinner) Medications Given in ED Current Medications Medications Dose Ordered Sig/Joao Route Start Time Stop Time Status Last Admin Dose Admin Ondansetron HCl 4 mg ONCE ONCE IVP 05/02/17 17:00 05/02/17 17:01 DC 05/02/17 17:05 4 MG Sodium Chloride 1,000 ml @ 0 mls/hr Q0M ONCE IV 05/02/17 15:34 05/02/17 15:38 DC 05/02/17 15:41 1,000 MLS/HR Vital Signs/I&O Vital Sign - Last 12Hours 05/02/17 15:01 Temp 99.4 Pulse 100 Resp 18 B/P (MAP) 111/78 (89) Pulse Ox 96 O2 Delivery Room Air Capillary Refill : Less Than 3 Seconds Blood Pressure Mean: 89 Point of Care Testing Finger Stick Blood Glucose: 383 Blood Glucose Action Taken: report to Dr Mccarty Progress Note : Progress Note Seen and evaluated. IV, labs and UA ordered. Normal saline 1 L bolus. Insulin 10 units IV ordered. Monitor patient. Dosing did bring her blood sugars down to the mid 300s. Patient complaining of nausea. Zofran 4 mg IV given. Patient states that she feels that she is hungry and medial ordered. 1753: Case discussed with Dr. Huang, on-call for Dr. Hampton. Patient will require insulin teaching and insulin dosing given her failure of oral anti- hyperglycemics. She accepts patient for admission, observation status. We will initiate M her treatment tonight and sliding scale insulin. We will continue on IV fluids. All this was discussed with the patient who agrees with plan. Admit, observation status. Departure Communication (Admissions) Time/Spoke to Admitting Phy: 17:53 Impression Impression: Primary Impression: Uncontrolled type 2 diabetes mellitus with hyperglycemia Qualified Codes: E11.65 - Type 2 diabetes mellitus with hyperglycemia Disposition: ADMITTED INPATIENT Condition: Stable Admissions Decision to Admit Reason: Admit from ER (General) Decision to Admit/Date: May 02, 2017 Time/Decision to Admit Time: 17:53 Departure-Patient Inst. Referrals: CB HAMPTON MD (PCP/Family) Primary Care Physician ADELE MCCARTY MD May 02, 2017 16:46
[2017-05-02] MEDS ORDERED: ONDANSETRON 4 MG/2 ML (SDV) Z0FRAN IVP ONE (17:00)
--- OUTSIDE RECORDS SUMMARY | 2017-05-02 18:22 | XMS REPORT | Continuity of Care Document ---
Author Author [facility] Organization [facility] Address Unknown Phone Unavailable Allergies Active Description Code Type Severity Reaction Onset Reported/Identified Relationship to Patient Clinical Status Yes No Known Drug Allergies [id number] Drug Allergy Unknown N/A 07/18/2009 Medications There is no data. Problems Date Dx Coded Attending Type Code [...] V58.69 OTH MED,LT,CURRENT USE 06/06/2014 LINDSEY SNIDER FILTER TIP INSPECTOR Ot 272.4 06/06/2014 LINDSEY SNIDER FILTER TIP INSPECTOR Ot 414.00 06/15/2014 VICENTA DURAN FACC, ARABELLA FACP CCDS Ot 272.4 06/15/2014 VICENTA DURAN FACC, ARABELLA FACP CCDS Ot 278.00 06/15/2014 VICENTA DURAN FACC, ARABELLA FACP CCDS Ot 396.3 06/15/2014 VICENTA DURAN FACC, ALI FACP CCDS Ot 401.9 06/15/2014 VICENTA DURAN FAC, ALI FACP CCDS Ot 414.00 06/15/2014 VICENTA DURAN FAC, ALI FACP CCDS Ot 790.21 06/15/2014 VICENTA DURAN [facility], ALI FACP CCDS Ot 272.4 06/15/2014 VICENTA MD FAC, ALI FACP CCDS Ot 278.00 06/15/2014 VICENTA DURAN [facility], ALI FACP CCDS Ot 401.9 06/15/2014 VICENTA MD [facility], ALI FACP CCDS Ot 414.00 06/15/2014 VICENTA DURAN [facility], ALI FACP CCDS Ot 424.1 06/15/2014 VICENTA DURAN [facility], ALI FACP CCDS Ot 790.21 06/15/2014 VICENTA DURAN [facility], ALI FACP CCDS Ot V85.35 08/17/2014 BAIMA, LINDSEY L FILTER TIP INSPECTOR Ot 272.4 08/17/2014 BAIMA, LINDSEY L FILTER TIP INSPECTOR Ot 401.9 08/17/2014 BAIMA, LINDSEY L FILTER TIP INSPECTOR Ot 414.00 08/17/2014 BAIMA, LINDSEY L FILTER TIP INSPECTOR Ot 427.31 09/09/2014 BAIMA, LINDSEY L FILTER TIP INSPECTOR Ot 272.4 09/09/2014 BAIMA, LINDSEY L FILTER TIP INSPECTOR Ot 401.9 09/09/2014 BAIMA, LINDSEY L FILTER TIP INSPECTOR Ot 414.00 09/09/2014 BAIMA, LINDSEY L FILTER TIP INSPECTOR Ot 427.31 10/13/2014 BAIMA, LINDSEY L FILTER TIP INSPECTOR Ot 401.9 10/13/2014 BAIMA, LINDSEY L FILTER TIP INSPECTOR Ot 414.9 10/13/2014 BAIMA, LINDSEY L FILTER TIP INSPECTOR Ot 424.1 10/13/2014 BAIMA, LINDSEY L FILTER TIP INSPECTOR Ot 427.31 10/13/2014 BAIMA, LINDSEY L FILTER TIP INSPECTOR Ot V58.61 02/02/2015 Ot 272.4 02/02/2015 [...] Briscoe Ot 401.9 02/02/2015 BRITTANY DURAN, CB [place] Ot 790.29 02/02/2015 LINDSEY SNIDER FILTER TIP INSPECTOR Ot 272.4 02/02/2015 BRITTANY DURAN, CB [place] Ot 250.00 02/02/2015 BRITTANY DURAN, CB [place] Ot 401.9 02/02/2015 BRITTANY DURAN, CB [place] Ot V58.69 02/02/2015 JOCELYNE, BOBAN N Ot 282.40 02/02/2015 JOCELYNE, BOBAN N Ot 429.3 02/02/2015 JOCELYNE, BOBAN N Ot 457.1 02/02/2015 JOCELYNE, BOBAN N Ot 782.3 02/02/2015 TONI PATTERSON FILTER TIP INSPECTOR Ot 250.00 02/02/2015 TONI PATTERSON FILTER TIP INSPECTOR Ot 272.4 02/02/2015 TONI PATTERSON FILTER TIP INSPECTOR Ot V58.69 02/02/2015 VICENTA DURAN FACC, ALI FACP CCDS Ot 280.9 02/02/2015 VICENTA DURAN FACC, ALI FACP CCDS Ot 728.87 02/02/2015 VICETNA DURAN FACC, ALI FACP CCDS Ot 729.1 02/02/2015 VICENTA DURAN FACC, ALI FACP CCDS Ot V58.63 02/02/2015 VICENTA DURAN FACC, ALI FACP CCDS Ot V58.66 02/02/2015 VICENTA DURAN FACC, ALI FACP CCDS Ot V58.69 02/02/2015 LINDSEY SNIDER L FILTER TIP INSPECTOR Ot 272.4 02/02/2015 AGATHA LINDSEY L FILTER TIP INSPECTOR Ot 401.9 02/02/2015 ABRAMMA LINDSEY L FILTER TIP INSPECTOR Ot 414.00 02/02/2015 BRITTANY DURAN, CB A Ot 401.9 02/02/2015 BRITTANY DURAN, CB A Ot V58.69 02/02/2015 AGATHA LINDSEY L FILTER TIP INSPECTOR Ot 272.4 02/02/2015 AGATHA LINDSEY L FILTER TIP INSPECTOR Ot 414.00 02/02/2015 VICENTA DURAN FACC, [...] CCDS Ot V85.35 02/02/2015 BAIMA, LINDSEY L FILTER TIP INSPECTOR Ot 272.4 02/02/2015 BAIMA, LINDSEY L FILTER TIP INSPECTOR Ot 401.9 02/02/2015 BAIMA, LINDSEY L FILTER TIP INSPECTOR Ot 414.00 02/02/2015 BAIMA, LINDSEY L FILTER TIP INSPECTOR Ot 424.1 02/02/2015 BAIMA, LINDSEY L FILTER TIP INSPECTOR Ot 427.31 02/02/2015 BAIMA, LINDSEY L FILTER TIP INSPECTOR Ot V58.61 02/02/2015 BAIMA, LINDSEY L FILTER TIP INSPECTOR Ot 272.4 02/02/2015 BAIMA, LINDSEY L FILTER TIP INSPECTOR Ot 401.9 02/02/2015 BAIMA, LINDSEY L FILTER TIP INSPECTOR Ot 414.00 02/02/2015 BAIMA, LINDSEY L FILTER TIP INSPECTOR Ot 427.31 02/02/2015 BAIMA, LINDSEY L FILTER TIP INSPECTOR Ot 401.9 02/02/2015 BAIMA, LINDSEY L FILTER TIP INSPECTOR Ot 414.9 02/02/2015 BAIMA, LINDSEY L FILTER TIP INSPECTOR Ot 424.1 02/02/2015 BAIMA, LINDSEY L FILTER TIP INSPECTOR Ot 427.31 02/02/2015 BAIMA, LINDSEY L FILTER TIP INSPECTOR Ot V58.61 02/02/2015 BAHMAN KATE MD Ot I88.9 NONSPECIFIC LYMPHADENITIS, UNSPECIFIED 02/02/2015 BAHMAN KATE MD Ot L03.116 CELLULITIS OF LEFT LOWER LIMB 02/02/2015 BAHMAN KATE MD Ot M79.89 OTHER SPECIFIED SOFT TISSUE DISORDERS 04/11/2015 BAIMARK, LINDSEY L FILTER TIP INSPECTOR Ot I25.10 06/08/2015 Ot I73.9 06/08/2015 Ot R60.9 06/19/2015 Ot I73.9 06/19/2015 Ot R60.9 09/19/2015 BAIMA, LINDSEY L FILTER TIP INSPECTOR Ot E78.5 HYPERLIPIDEMIA, UNSPECIFIED 09/19/2015 BAIMA, LINDSEY L FILTER TIP INSPECTOR Ot I10 ESSENTIAL (PRIMARY) HYPERTENSION 09/19/2015 BAIMA LINDSEY L FILTER TIP INSPECTOR Ot I25.10 ATHSCL HEART DISEASE OF [place] CORONARY 09/19/2015 BAIMARK LINDSEY L FILTER TIP INSPECTOR Ot I48.91 UNSPECIFIED ATRIAL FIBRILLATION 09/19/2015 BAIMA LINDSEY L FILTER TIP INSPECTOR Ot I73.9 PERIPHERAL VASCULAR DISEASE, UNSPECIFIED 09/19/2015 LINDSEY SNIDER FILTER TIP INSPECTOR Ot R60.9 EDEMA, UNSPECIFIED 10/06/2015 LINDSEY SNIDER FILTER TIP INSPECTOR Ot E78.5 HYPERLIPIDEMIA, UNSPECIFIED 10/06/2015 LINDSEY SNIDER FILTER TIP INSPECTOR Ot I10 ESSENTIAL (PRIMARY) HYPERTENSION 10/06/2015 LINDSEY SNIDER FILTER TIP INSPECTOR Ot I25.10 ATHSCL HEART DISEASE OF [place] CORONARY 10/06/2015 LINDSEY SNIDER FILTER TIP INSPECTOR Ot I48.91 UNSPECIFIED ATRIAL FIBRILLATION 10/06/2015 LINDSEY SNIDER FILTER TIP INSPECTOR Ot I73.9 PERIPHERAL VASCULAR DISEASE, UNSPECIFIED 10/06/2015 LINDSEY SNIDER FILTER TIP INSPECTOR Ot R60.9 EDEMA, UNSPECIFIED 03/19/2016 Ot 272.4 HYPERLIPIDEMIA NEC/NOS 03/19/2016 Ot 401.9 HYPERTENSION NOS 03/19/2016 Ot 414.00 CORON ATHEROSCLER NOS TYPE VESSEL, NATIV 03/19/2016 Ot V58.69 OTH MED,LT, CURRENT USE 03/19/2016 Ot 272.4 HYPERLIPIDEMIA NEC/NOS 03/19/2016 Ot 401.9 HYPERTENSION NOS 03/19/2016 Ot V58.69 OTH MED,LT, CURRENT USE 03/19/2016 Ot 424.1 AORTIC VALVE DISORDER 03/19/2016 Ot 782.3 EDEMA 03/19/2016 Ot 793.2 NOSP (ABN) FINDINGS ON RADIOLOGICAL OT 03/19/2016 Ot 793.89 OTH (ABN) FINDINGS ON RADIOLOGICAL EXAMI 03/19/2016 Ot V76.12 OTH SCREEN MAMMO-MALIGN NEOPLASM OF [place] 03/19/2016 Ot 793.89 OTH (ABN) FINDINGS ON RADIOLOGICAL EXAMI 03/19/2016 Ot 793.89 OTH (ABN) FINDINGS ON RADIOLOGICAL EXAMI 03/19/2016 Ot V58.69 OTH MED,LT, CURRENT USE 03/19/2016 Ot V72.63 PRE- PROCEDURAL LABORATORY EXAMINATION 03/19/2016 Ot 272.4 HYPERLIPIDEMIA NEC/NOS 03/19/2016 Ot 401.9 HYPERTENSION NOS 03/19/2016 Ot 414.00 CORON ATHEROSCLER NOS TYPE VESSEL, NATIV 03/19/2016 Ot V58.69 OTH MED,LT, CURRENT USE 03/19/2016 Ot 272.4 HYPERLIPIDEMIA NEC/NOS 03/19/2016 Ot 414.00 CORON ATHEROSCLER NOS TYPE VESSEL, NATIV 03/19/2016 Ot V58.69 OTH MED,LT, CURRENT USE 03/19/2016 Ot 401.9 HYPERTENSION NOS 03/19/2016 Ot 790.29 OTHER ABNORMAL GLUCOSE 03/19/2016 Ot V58.69 OTH MED,LT, CURRENT USE 03/19/2016 Ot 285.9 ANEMIA NOS 03/19/2016 BRITTANY DURAN, CB A Ot 285.9 ANEMIA NOS 03/19/2016 CB SOTO MD A Ot 401.9 HYPERTENSION NOS 03/19/2016 BRITTANY DURAN, CB A Ot 790.29 OTHER ABNORMAL GLUCOSE 03/19/2016 LINDSEY NSIDER FILTER TIP INSPECTOR Ot 272.4 HYPERLIPIDEMIA NEC/NOS 03/19/2016 BRITTANY DURAN, CB [place]iscoe Ot 250.00 DIAB DAVID WO COMPL, TYPE II OR UNSPEC TY 03/19/2016 CB SOTO MD Ot 401.9 HYPERTENSION NOS 03/19/2016 CB SOTO MD Ot V58.69 OTH MED,LT,CURRENT USE 03/19/2016 LINCOLN CASANOVA Ot 282.40 THALASSEMIA, UNSPECIFIED 03/19/2016 LINCOLN CASANOVA Ot 429.3 CARDIOMEGALY 03/19/2016 LINCOLN CASANOVA Ot 457.1 OTHER LYMPHEDEMA 03/19/2016 LINCOLN CASANOVA Ot 782.3 EDEMA 03/19/2016 TONI PATTERSON FILTER TIP INSPECTOR Ot 250.00 DIAB DAVID WO COMPL, TYPE II OR UNSPEC TY 03/19/2016 TONI PATTERSON FILTER TIP INSPECTOR Ot 272.4 HYPERLIPIDEMIA NEC/NOS 03/19/2016 TONI PATTERSON FILTER TIP INSPECTOR Ot V58.69 OTH MED,LT,CURRENT USE 03/19/2016 VICENTA DURAN FACC, ARABELLA FACP CCDS Ot 280.9 IRON DEFIC ANEMIA NOS 03/19/2016 VICENTA DURAN FACC, ARABELLA FACP CCDS Ot 728.87 MUSCLE WEAKNESS (GENERALIZED) 03/19/2016 VICENTA DURAN FACC, ARABELLA FACP CCDS Ot 729.1 MYALGIA AND MYOSITIS NOS 03/19/2016 VICENTA DURAN FACC, ARABELLA FACP CCDS Ot V58.63 LONG-TERM(CURRENT)USE OF ANTIPLATELET/AN 03/19/2016 VICENTA DURAN FACC, ARABELLA FACP CCDS Ot V58.66 LONG-TERM (CURRENT) USE OF ASPIRIN 03/19/2016 VICENTA DURAN FACC, ALI FACP CCDS Ot V58.69 OTH MED,LT,CURRENT USE 03/19/2016 BAIMA, LINDSEY L FILTER TIP INSPECTOR Ot 272.4 HYPERLIPIDEMIA NEC/NOS 03/19/2016 BAIMA, LINDSEY L FILTER TIP INSPECTOR Ot 401.9 HYPERTENSION NOS 03/19/2016 BAIMA, LINDSEY L FILTER TIP INSPECTOR Ot 414.00 CORON ATHEROSCLER NOS TYPE VESSEL, NATIV 03/19/2016 CB SOTO MD Ot 401.9 HYPERTENSION NOS 03/19/2016 CB SOTO MD Ot V58.69 OTH MED,LT,CURRENT USE 03/19/2016 BAIMA, LINDSEY L FILTER TIP INSPECTOR Ot 272.4 HYPERLIPIDEMIA NEC/NOS 03/19/2016 BAIMA, LINDSEY L FILTER TIP INSPECTOR Ot 414.00 CORON ATHEROSCLER NOS TYPE [...] CCDS Ot 278.00 OBESITY, NOS 03/19/2016 VICENTA GRIJALVAC, ALI FACP CCDS Ot 401.9 [...] INDEX 35.0-35.9, ADULT 03/19/2016 BAIMA, LINDSEY L FILTER TIP INSPECTOR Ot 272.4 HYPERLIPIDEMIA NEC/NOS 03/19/2016 BAIMA, LINDSEY L FILTER TIP INSPECTOR Ot 401.9 HYPERTENSION NOS 03/19/2016 BAIMA, LINDSEY L FILTER TIP INSPECTOR Ot 414.00 CORON ATHEROSCLER NOS TYPE VESSEL, NATIV 03/19/2016 BAIMA, LINDSEY L FILTER TIP INSPECTOR Ot 424.1 AORTIC VALVE DISORDER 03/19/2016 BAIMA, LINDSEY L FILTER TIP INSPECTOR Ot 427.31 ATRIAL FIBRILLATION 03/19/2016 BAIMA, LINDSEY L FILTER TIP INSPECTOR Ot V58.61 ANTICOAGULANTS,LT,CURRENT USE 03/19/2016 BAIMA, LINDSEY L FILTER TIP INSPECTOR Ot 272.4 HYPERLIPIDEMIA NEC/NOS 03/19/2016 BAIMA, LINDSEY L FILTER TIP INSPECTOR Ot 401.9 HYPERTENSION NOS 03/19/2016 BAIMA, LINDSEY L FILTER TIP INSPECTOR Ot 414.00 CORON ATHEROSCLER NOS TYPE VESSEL, NATIV 03/19/2016 BAIMA, LINDSEY L FILTER TIP INSPECTOR Ot 427.31 ATRIAL FIBRILLATION 03/19/2016 BAIMA, LINDSEY L FILTER TIP INSPECTOR Ot 401.9 HYPERTENSION NOS 03/19/2016 BAIMA, LINDSEY L FILTER TIP INSPECTOR Ot 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 HRT DIS NOS 03/19/2016 BAIMA, LINDSEY L FILTER TIP INSPECTOR Ot 424.1 AORTIC VALVE DISORDER 03/19/2016 BAIMA, LINDSEY L FILTER TIP INSPECTOR Ot 427.31 ATRIAL FIBRILLATION 03/19/2016 BAIMA, LINDSEY L FILTER TIP INSPECTOR Ot V58.61 ANTICOAGULANTS,LT,CURRENT USE 03/19/2016 BAIMA, LINDSEY L FILTER TIP INSPECTOR Ot I25.10 ATHSCL HEART DISEASE OF [place] CORONARY 03/19/2016 Ot I73.9 PERIPHERAL VASCULAR DISEASE, UNSPECIFIED 03/19/2016 Ot R60.9 EDEMA, UNSPECIFIED 03/19/2016 BAIMA, LINDSEY L FILTER TIP INSPECTOR Ot E78.5 HYPERLIPIDEMIA, UNSPECIFIED 03/19/2016 BAIMA, LINDSEY L FILTER TIP INSPECTOR Ot I10 ESSENTIAL (PRIMARY) HYPERTENSION 03/19/2016 BAIMA, LINDSEY L FILTER TIP INSPECTOR Ot I25.10 ATHSCL HEART DISEASE OF [place] CORONARY 03/19/2016 BAIMA, LINDSEY L FILTER TIP INSPECTOR Ot I48.91 UNSPECIFIED ATRIAL FIBRILLATION 03/19/2016 BAIMA, LINDSEY L FILTER TIP INSPECTOR Ot I73.9 PERIPHERAL VASCULAR DISEASE, UNSPECIFIED 03/19/2016 LINDSEY SNIDER FILTER TIP INSPECTOR Ot R60.9 EDEMA, UNSPECIFIED 03/19/2016 VICENTA DURAN FACC, ALI FACP CCDS Ot E78.5 HYPERLIPIDEMIA, UNSPECIFIED 03/27/2016 VICENTA DURAN FACC, ALI FACP CCDS Ot E78.5 HYPERLIPIDEMIA, UNSPECIFIED 03/27/2016 VICENTA DURAN FACC, ALI FACP CCDS Ot I10 ESSENTIAL (PRIMARY) HYPERTENSION 03/27/2016 VICENTA DURAN FACC, ALI FACP CCDS Ot I25.10 ATHSCL HEART DISEASE OF [place] CORONARY 04/18/2016 VICENTA DURAN FACC, ALI FACP CCDS Ot E78.5 HYPERLIPIDEMIA, UNSPECIFIED 04/18/2016 VICENTA DURAN FACBishop, ALI FACP CCDS Ot I10 ESSENTIAL (PRIMARY) HYPERTENSION 04/18/2016 VICENTA DURAN FACBishop, ALI FACP CCDS Ot I25.10 ATHSCL HEART DISEASE OF [place] CORONARY 12/25/2016 Ot 272.4 HYPERLIPIDEMIA NEC/NOS 12/25/2016 Ot 401.9 HYPERTENSION NOS 12/25/2016 Ot V58.69 OTH MED,LT, CURRENT USE 12/25/2016 Ot 424.1 AORTIC VALVE DISORDER 12/25/2016 Ot 782.3 EDEMA 12/25/2016 Ot 793.2 NOSP (ABN) FINDINGS ON RADIOLOGICAL OT 12/25/2016 Ot 793.89 OTH (ABN) FINDINGS ON RADIOLOGICAL EXAMI 12/25/2016 Ot V76.12 OTH SCREEN MAMMO-MALIGN NEOPLASM OF [place] 12/25/2016 Ot 793.89 OTH (ABN) FINDINGS ON RADIOLOGICAL EXAMI 12/25/2016 Ot 793.89 OTH (ABN) FINDINGS ON RADIOLOGICAL EXAMI 12/25/2016 Ot V58.69 OTH MED,LT, CURRENT USE 12/25/2016 Ot V72.63 PRE- PROCEDURAL LABORATORY EXAMINATION 12/25/2016 Ot 272.4 HYPERLIPIDEMIA NEC/NOS 12/25/2016 Ot 401.9 HYPERTENSION NOS 12/25/2016 Ot 414.00 CORON ATHEROSCLER NOS TYPE VESSEL, NATIV 12/25/2016 Ot V58.69 OTH MED,LT, CURRENT USE 12/25/2016 Ot 272.4 HYPERLIPIDEMIA NEC/NOS 12/25/2016 Ot 414.00 CORON ATHEROSCLER NOS TYPE VESSEL, NATIV 12/25/2016 Ot V58.69 OTH MED,LT, CURRENT USE 12/25/2016 Ot 401.9 HYPERTENSION NOS 12/25/2016 Ot 790.29 OTHER ABNORMAL GLUCOSE 12/25/2016 Ot V58.69 OTH MED,LT, CURRENT USE 12/25/2016 Ot 285.9 ANEMIA NOS 12/25/2016 BRITTANY DURAN, CB A Ot 285.9 ANEMIA NOS 12/25/2016 BRITTANY DURAN, CB A Ot 401.9 HYPERTENSION NOS 12/25/2016 CB SOTO MD A Ot 790.29 OTHER ABNORMAL GLUCOSE 12/25/2016 LINDSEY SNIDER FILTER TIP INSPECTOR Ot 272.4 HYPERLIPIDEMIA NEC/NOS 12/25/2016 CB SOTO MD Ot 250.00 DIAB DAVID WO COMPL, TYPE II OR UNSPEC TY 12/25/2016 CB SOTO MD A Ot 401.9 HYPERTENSION NOS 12/25/2016 CB SOTO MD Ot V58.69 OTH MED,LT,CURRENT USE 12/25/2016 LINCOLN CASANOVA Ot 282.40 THALASSEMIA, UNSPECIFIED 12/25/2016 LINCOLN CASANOVA N Ot 429.3 CARDIOMEGALY 12/25/2016 LINCOLN CASANOVA N Ot 457.1 OTHER LYMPHEDEMA 12/25/2016 LINCOLN CASANOVA N Ot 782.3 EDEMA 12/25/2016 TONI PATTERSON FILTER TIP INSPECTOR Ot 250.00 DIAB DAVID WO COMPL, TYPE II OR UNSPEC TY 12/25/2016 TONI PATTERSON FILTER TIP INSPECTOR Ot 272.4 HYPERLIPIDEMIA NEC/NOS 12/25/2016 TONI PATTERSON FILTER TIP INSPECTOR Ot V58.69 OTH MED,LT,CURRENT USE 12/25/2016 VICENTA DURAN FACC, ALI FACP CCDS Ot 280.9 12/25/2016 VICENTA DURAN FACC, ARABELLA FACP CCDS Ot 728.87 12/25/2016 VICENTA DURAN FACC, ARABELLA FACP CCDS Ot 729.1 12/25/2016 VICENTA DURAN FACC, ARABELLA FACP CCDS Ot V58.63 12/25/2016 VICENTA DURAN FACC, ALI FACP CCDS Ot V58.66 12/25/2016 VICENTA DURAN FACC, ALI FACP CCDS Ot V58.69 12/25/2016 LINDSEY SNIDER FILTER TIP INSPECTOR Ot 272.4 HYPERLIPIDEMIA NEC/NOS 12/25/2016 BAIMA, LINDSEY L FILTER TIP INSPECTOR Ot 401.9 HYPERTENSION NOS 12/25/2016 BAIMA, LINDSEY L FILTER TIP INSPECTOR Ot 414.00 CORON ATHEROSCLER NOS TYPE VESSEL, NATIV 12/25/2016 CB SOTO MD Ot 401.9 HYPERTENSION NOS 12/25/2016 CB SOTO MD Ot V58.69 OT MED,LT,CURRENT USE 12/25/2016 BAIMA, LINDSEY L FILTER TIP INSPECTOR Ot 272.4 HYPERLIPIDEMIA NEC/NOS 12/25/2016 BAIMA, LINDSEY L FILTER TIP INSPECTOR Ot 414.00 CORON ATHEROSCLER NOS TYPE VESSEL, NATIV 12/25/2016 VICENTA DURAN FACC, ALI FACP CCDS Ot 272.4 HYPERLIPIDEMIA NEC/NOS 12/25/2016 VICENTA DURAN FACC, ALI FACP CCDS Ot 278.00 OBESITY, NOS 12/25/2016 VICENTA DURAN FACC, ALI FACP CCDS Ot 396.3 MITRAL/AORTIC MECCA INSUFF 12/25/2016 VICENTA DURAN FACC, ALI FACP CCDS Ot 401.9 HYPERTENSION NOS 12/25/2016 VICENTA DURAN FACC, ALI FACP CCDS Ot 414.00 CORON ATHEROSCLER NOS TYPE VESSEL, NATIV 12/25/2016 VICENTA GRIJALVAC, ALI FACP CCDS Ot 790.21 IMPAIRED FASTING GLUCOSE 12/25/2016 VICENTA DURAN FACC, ALI FACP CCDS Ot 272.4 HYPERLIPIDEMIA NEC/NOS 12/25/2016 VICENTA DURAN FACC, ALI FACP CCDS Ot 278.00 OBESITY, NOS 12/25/2016 VICENTA DURAN FACC, ALI FACP CCDS Ot 401.9 HYPERTENSION NOS 12/25/2016 VICENTA GRIJALVAC, ALI FACP CCDS Ot 414.00 CORON ATHEROSCLER NOS TYPE VESSEL, NATIV 12/25/2016 VICENTA GRIJALVAC, ALI FACP CCDS Ot 424.1 AORTIC VALVE DISORDER 12/25/2016 VICENTA GRIJALVAC, ALI FACP CCDS Ot 790.21 IMPAIRED FASTING GLUCOSE 12/25/2016 VICENTA GRIJALVAC, ALI FACP CCDS Ot V85.35 BODY MASS INDEX 35.0-35.9, ADULT 12/25/2016 BAIMA, LINDSEY L FILTER TIP INSPECTOR Ot 272.4 HYPERLIPIDEMIA NEC/NOS 12/25/2016 BAIMA, LINDSEY L FILTER TIP INSPECTOR Ot 401.9 HYPERTENSION NOS 12/25/2016 BAIMA, LINDSEY L FILTER TIP INSPECTOR Ot 414.00 CORON ATHEROSCLER NOS TYPE VESSEL, NATIV 12/25/2016 BAIMA, LINDSEY L FILTER TIP INSPECTOR Ot 424.1 AORTIC VALVE DISORDER 12/25/2016 BAIMA, LINDSEY L FILTER TIP INSPECTOR Ot 427.31 ATRIAL FIBRILLATION 12/25/2016 BAIMA, LINDSEY L FILTER TIP INSPECTOR Ot V58.61 ANTICOAGULANTS,LT,CURRENT USE 12/25/2016 BAIMA, LINDSEY L FILTER TIP INSPECTOR Ot 272.4 HYPERLIPIDEMIA NEC/NOS 12/25/2016 BAIMA, LINDSEY L FILTER TIP INSPECTOR Ot 401.9 HYPERTENSION NOS 12/25/2016 BAIMA, LINDSEY L FILTER TIP INSPECTOR Ot 414.00 CORON ATHEROSCLER NOS TYPE VESSEL, NATIV 12/25/2016 BAIMA, LINDSEY L FILTER TIP INSPECTOR Ot 427.31 ATRIAL FIBRILLATION 12/25/2016 BAIMA, LINDSEY L FILTER TIP INSPECTOR Ot 401.9 HYPERTENSION NOS 12/25/2016 BAIMA, LINDSEY L FILTER TIP INSPECTOR Ot 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 HRT DIS NOS 12/25/2016 BAIMA, LINDSEY L FILTER TIP INSPECTOR Ot 424.1 AORTIC VALVE DISORDER 12/25/2016 BAIMA, LINDSEY L FILTER TIP INSPECTOR Ot 427.31 ATRIAL FIBRILLATION 12/25/2016 BAIMA, LINDSEY L FILTER TIP INSPECTOR Ot V58.61 ANTICOAGULANTS,LT,CURRENT USE 12/25/2016 BAIMA, LINDSEY L FILTER TIP INSPECTOR Ot I25.10 ATHSCL HEART DISEASE OF [place] CORONARY 12/25/2016 Ot I73.9 PERIPHERAL VASCULAR DISEASE, UNSPECIFIED 12/25/2016 Ot R60.9 EDEMA, UNSPECIFIED 12/25/2016 BAIMA, LINDSEY L FILTER TIP INSPECTOR Ot E78.5 HYPERLIPIDEMIA, UNSPECIFIED 12/25/2016 BAIMA, LINDSEY L FILTER TIP INSPECTOR Ot I10 ESSENTIAL (PRIMARY) HYPERTENSION 12/25/2016 BAIMA, LINDSEY L FILTER TIP INSPECTOR Ot I25.10 ATHSCL HEART DISEASE OF [place] CORONARY 12/25/2016 BAIMA, LINDSEY L FILTER TIP INSPECTOR Ot I48.91 UNSPECIFIED ATRIAL FIBRILLATION 12/25/2016 BAIMA, LINDSEY L FILTER TIP INSPECTOR Ot I73.9 PERIPHERAL VASCULAR DISEASE, UNSPECIFIED 12/25/2016 BAIMA, LINDSEY L FILTER TIP INSPECTOR Ot R60.9 EDEMA, UNSPECIFIED 12/25/2016 VICENTA DURAN FACARABELLA FACP CCDS Ot E78.5 HYPERLIPIDEMIA, UNSPECIFIED 12/25/2016 VICENTA DURAN FACC, ALI FACP CCDS Ot I10 ESSENTIAL (PRIMARY) HYPERTENSION 12/25/2016 VICENTA DURAN FAC, ALI FACP CCDS Ot I25.10 ATHSCL HEART DISEASE OF [place] CORONARY 01/01/2017 ABRAMMALINDSEY L FILTER TIP INSPECTOR Ot E78.4 OTHER HYPERLIPIDEMIA 01/01/2017 BAIMA, LINDSEY L FILTER TIP INSPECTOR Ot I10 ESSENTIAL (PRIMARY) HYPERTENSION 01/01/2017 BAIMA LINDSEY L FILTER TIP INSPECTOR Ot I25.10 ATHSCL HEART DISEASE OF [place] CORONARY 01/01/2017 ABRAMMA LINDSEY L FILTER TIP INSPECTOR Ot I35.8 OTHER NONRHEUMATIC AORTIC VALVE DISORDER 01/01/2017 ABRAMMALINDSEY L FILTER TIP INSPECTOR Ot I48.0 PAROXYSMAL ATRIAL FIBRILLATION 01/01/2017 LINDSEY SNIDER L FILTER TIP INSPECTOR Ot M79.89 OTHER SPECIFIED SOFT TISSUE DISORDERS 01/15/2017 BAHMAN KATE MD Ot I10 ESSENTIAL (PRIMARY) HYPERTENSION 01/15/2017 BAHMAN KATE MD Ot I48.91 UNSPECIFIED ATRIAL FIBRILLATION 01/15/2017 BAHMAN KATE MD Ot J81.1 CHRONIC PULMONARY EDEMA 01/15/2017 BAHMAN KATE MD Ot R06.02 SHORTNESS OF BREATH 01/15/2017 BAHMAN KATE MD Ot Z79.82 QUALITY LEAD (CURRENT) USE OF ASPIRIN 01/16/2017 DARLYN ARREAGA MD Ot G47.33 OBSTRUCTIVE SLEEP APNEA (ADULT) (PEDIATR 01/16/2017 DARLYN ARREAGA MD Ot G47.33 OBSTRUCTIVE SLEEP APNEA (ADULT) (PEDIATR 01/17/2017 BAHMAN KATE MD Ot I10 ESSENTIAL (PRIMARY) HYPERTENSION 01/17/2017 BAHMAN KATE MD Ot I48.91 UNSPECIFIED ATRIAL FIBRILLATION 01/17/2017 BAHMAN KATE MD Ot J81.1 CHRONIC PULMONARY EDEMA 01/17/2017 BAHMAN KATE MD Ot R06.02 SHORTNESS OF BREATH 01/17/2017 BAHMAN KATE MD Ot Z79.82 SHELTER (CURRENT) USE OF ASPIRIN 01/17/2017 DARLYN ARREAGA MD Ot G47.33 OBSTRUCTIVE SLEEP APNEA (ADULT) (PEDIATR 01/17/2017 LINDSEY SNIDER FILTER TIP INSPECTOR Ot E78.4 OTHER HYPERLIPIDEMIA 01/17/2017 LINDSEY SNIDER L FILTER TIP INSPECTOR Ot I10 ESSENTIAL (PRIMARY) HYPERTENSION 01/17/2017 LINDSEY SNIDER FILTER TIP INSPECTOR Ot I25.10 ATHSCL HEART DISEASE OF [place] CORONARY 01/17/2017 LINDSEY SNIDER L FILTER TIP INSPECTOR Ot I35.8 OTHER NONRHEUMATIC AORTIC VALVE DISORDER 01/17/2017 LINDSEY SNIDER L FILTER TIP INSPECTOR Ot I48.0 PAROXYSMAL ATRIAL FIBRILLATION 01/17/2017 LINDSEY SNIDER FILTER TIP INSPECTOR Ot M79.89 OTHER SPECIFIED SOFT TISSUE DISORDERS 01/21/2017 LINDSEY SNIDER L FILTER TIP INSPECTOR Ot E78.4 OTHER HYPERLIPIDEMIA 01/21/2017 LINDSEY SNIDER L FILTER TIP INSPECTOR Ot I10 ESSENTIAL (PRIMARY) HYPERTENSION 01/21/2017 LINDSEY SNIDER FILTER TIP INSPECTOR Ot I25.10 ATHSCL HEART DISEASE OF [place] CORONARY 01/21/2017 LINDSEY SNIDER FILTER TIP INSPECTOR Ot I35.8 OTHER NONRHEUMATIC AORTIC VALVE DISORDER 01/21/2017 LINDSEY SNIDER FILTER TIP INSPECTOR Ot I48.0 PAROXYSMAL ATRIAL FIBRILLATION 01/21/2017 ABRMALINDSEY FLORES L FILTER TIP INSPECTOR Ot M79.89 OTHER SPECIFIED SOFT TISSUE DISORDERS 01/21/2017 VICENTA DURAN FACC, ARABELLA FACP CCDS Ot E66.9 OBESITY, UNSPECIFIED 01/21/2017 ARABELLA YADAV MD, FACC FACP CCDS Ot I10 ESSENTIAL (PRIMARY) HYPERTENSION 01/21/2017 VICENTA DURAN FACC, ARABELLA FACP CCDS Ot I25.10 ATHSCL HEART DISEASE OF [place] CORONARY 01/21/2017 VICENTA DURAN FACC, ARABELLA FACP CCDS Ot I35.1 NONRHEUMATIC AORTIC (VALVE) INSUFFICIENC 01/21/2017 ARABELLA YADAV MD, FACC FACP CCDS Ot I42.0 DILATED CARDIOMYOPATHY 01/21/2017 ARABELLA YADAV MD, FACC FACP CCDS Ot I48.2 CHRONIC ATRIAL FIBRILLATION 01/21/2017 ARABELLA YADAV MD, FACC FACP CCDS Ot R73.09 OTHER ABNORMAL GLUCOSE 01/21/2017 ARABELLA YADAV MD, FACC FACP CCDS Ot Z68.37 BODY MASS INDEX (BMI) 37.0-37.9, ADULT 01/21/2017 ARABELLA YADAV MD, FACC FACP CCDS Ot Z79.01 QUALITY LEAD (CURRENT) USE OF ANTICOAGULANT 01/21/2017 ARABELLA YADAV MD, FACC FACP CCDS Ot Z79.899 OTHER QUALITY LEAD (CURRENT) DRUG THERAPY 01/21/2017 VICENTA DURAN FACC, ARABELLA SCHUMACHER CCDS Ot Z95.5 PRESENCE OF CORONARY ANGIOPLASTY IMPLANT 01/22/2017 BAIMA LINDSEY L FILTER TIP INSPECTOR Ot E78.4 OTHER HYPERLIPIDEMIA 01/22/2017 BAIMA, LINDSEY L FILTER TIP INSPECTOR Ot I10 ESSENTIAL (PRIMARY) HYPERTENSION 01/22/2017 BAIMA, LINDSEY L FILTER TIP INSPECTOR Ot I25.10 ATHSCL HEART DISEASE OF [place] CORONARY 01/22/2017 BAIMA, LINDSEY L FILTER TIP INSPECTOR Ot I35.8 OTHER NONRHEUMATIC AORTIC VALVE DISORDER 01/22/2017 BAIMA, LINDSEY L FILTER TIP INSPECTOR Ot I48.0 PAROXYSMAL ATRIAL FIBRILLATION 01/22/2017 BAIMA, LINDSEY L FILTER TIP INSPECTOR Ot M79.89 OTHER SPECIFIED SOFT TISSUE DISORDERS 01/29/2017 BAIMA, LINDSEY L FILTER TIP INSPECTOR Ot E78.4 OTHER HYPERLIPIDEMIA 01/29/2017 BAIMA, LINDSEY L FILTER TIP INSPECTOR Ot I10 ESSENTIAL (PRIMARY) HYPERTENSION 01/29/2017 BAIMA, LINDSEY L FILTER TIP INSPECTOR Ot I25.10 ATHSCL HEART DISEASE OF [place] CORONARY 01/29/2017 BAIMA LINDSEY L FILTER TIP INSPECTOR Ot I35.8 OTHER NONRHEUMATIC AORTIC VALVE DISORDER 01/29/2017 BAIMA, LINDSEY L FILTER TIP INSPECTOR Ot I48.0 PAROXYSMAL ATRIAL FIBRILLATION 01/29/2017 BAIMA, LINDSEY L FILTER TIP INSPECTOR Ot M79.89 OTHER SPECIFIED SOFT TISSUE DISORDERS 01/31/2017 BAIMA, LINDSEY L FILTER TIP INSPECTOR Ot I48.0 PAROXYSMAL ATRIAL FIBRILLATION 01/31/2017 BAIMA, LINDSEY L FILTER TIP INSPECTOR Ot I50.22 CHRONIC SYSTOLIC (CONGESTIVE) HEART FAIL 02/21/2017 BAIMA, LINDSEY L FILTER TIP INSPECTOR Ot I48.0 PAROXYSMAL ATRIAL FIBRILLATION 02/21/2017 BAIMA, LINDSEY L FILTER TIP INSPECTOR Ot I50.22 CHRONIC SYSTOLIC (CONGESTIVE) HEART FAIL 03/18/2017 AGATHA LINDSEY L FILTER TIP INSPECTOR Ot E83.42 HYPOMAGNESEMIA 04/28/2017 VICENTA DURAN FACC, ARABELLA SCHUMACHER CCDS Ot E66.09 OTHER OBESITY DUE TO EXCESS CALORIES 04/28/2017 VICENTA DURAN FACC, ARABELLA SCHUMACHER CCDS Ot E78.4 OTHER HYPERLIPIDEMIA 04/28/2017 VICENTA DURAN FACC, ALI FACP CCDS Ot I11.0 HYPERTENSIVE HEART DISEASE WITH HEART FA 04/28/2017 VICENTA DURAN FAC, ALI FACP CCDS Ot I25.10 ATHSCL HEART DISEASE OF [place] CORONARY 04/28/2017 VICENTA DURAN FACC, ALI FACP CCDS Ot I42.0 DILATED CARDIOMYOPATHY 04/28/2017 VICENTA DURAN FACC, ALI FACP CCDS Ot I48.0 PAROXYSMAL ATRIAL FIBRILLATION 04/28/2017 VICENTA DURAN FACC, ALI FACP CCDS Ot I50.21 ACUTE SYSTOLIC (CONGESTIVE) HEART FAILUR 04/28/2017 VICENTA DURAN FACC, ALI FACP CCDS Ot R73.01 IMPAIRED FASTING GLUCOSE 05/01/2017 VICENTA DURAN FACC, ALI FACP CCDS Ot E66.09 OTHER OBESITY DUE TO EXCESS CALORIES 05/01/2017 VICENTA DURAN [facility], ALI FACP CCDS Ot E78.4 OTHER HYPERLIPIDEMIA 05/01/2017 VICENTA DURAN [facility], ALI FACP CCDS Ot I11.0 HYPERTENSIVE HEART DISEASE WITH HEART FA 05/01/2017 VICENTA DURAN [facility], ALI FACP CCDS Ot I25.10 ATHSCL HEART DISEASE OF [place] CORONARY 05/01/2017 VICENTA DURAN [facility], ALI FACP CCDS Ot 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 Results Test Result Range Complete blood count (CBC) with automated white blood cell (WBC) differential - 01/15/17 11:19 Blood leukocytes automated count (number/volume) 6.9 10*3/uL 4.3-11.0 Blood erythrocytes automated count (number/volume) 5.86 10*6/uL 4.35-5.85 Venous blood hemoglobin measurement (mass/volume) 10.8 g/dL 11.5-16.0 Blood hematocrit (volume fraction) 35 % 35-52 Automated erythrocyte mean corpuscular volume 59 [foz_us] 80-99 Automated erythrocyte mean corpuscular hemoglobin (mass per erythrocyte) 18 pg 25-34 Automated erythrocyte mean corpuscular hemoglobin concentration measurement ( mass/volume) 31 g/dL 32-36 Automated erythrocyte distribution width ratio 19.1 % 10.0-14.5 Automated blood platelet count (count/volume) 289 10*3/uL 130-400 Automated blood platelet mean volume measurement TNP 7.4 -10.4 Automated blood neutrophils/100 leukocytes 63 % 42-75 Automated blood lymphocytes/100 leukocytes 25 % 12-44 Blood monocytes/100 leukocytes 10 % 0-12 Automated blood eosinophils/100 leukocytes 2 % 0-10 Automated blood basophils/100 leukocytes 1 % 0-10 Blood neutrophils automated count (number/volume) 4.4 10*3 1.8-7.8 Blood lymphocytes automated count (number/volume) 1.8 10*3 1.0-4.0 Blood monocytes automated count (number/volume) 0.7 10*3 0.0-1.0 Automated eosinophil count 0.1 10*3/uL 0.0-0.3 Automated blood basophil count (count/volume) 0.0 10*3/uL 0.0-0.1 Comprehensive metabolic panel - 01/15/17 11:19 Serum or plasma sodium measurement (moles/volume) 141 mmol/L 135-145 Serum or plasma potassium measurement (moles/volume) 4.0 mmol/L 3.6-5.0 Serum or plasma chloride measurement (moles/volume) 108 mmol/L 98-107 Carbon dioxide 23 mmol/L 21-32 Serum or plasma anion gap determination (moles/volume) 10 mmol/L 5-14 Serum or plasma urea nitrogen measurement (mass/volume) 15 mg/dL 7-18 Serum or plasma creatinine measurement (mass/volume) 0.76 mg/dL 0.60-1.30 Serum or plasma urea nitrogen/creatinine mass ratio 20 NRG Serum or plasma creatinine measurement with calculation of estimated glomerular filtration rate > NRG Serum or plasma glucose measurement (mass/volume) 138 mg/dL 70-105 Serum or plasma calcium measurement (mass/volume) 9.5 mg/dL 8.5-10.1 Serum or plasma total bilirubin measurement (mass/volume) 0.9 mg/dL 0.1-1.0 Serum or plasma alkaline phosphatase measurement (enzymatic activity/volume) 60 U/L 40-136 Serum or plasma aspartate aminotransferase measurement (enzymatic activity/ volume) 37 U/L 5-34 Serum or plasma alanine aminotransferase measurement (enzymatic activity/volume ) 46 U/L 0-55 Serum or plasma protein measurement (mass/volume) 7.2 g/dL 6.4-8.2 Serum or plasma albumin measurement (mass/volume) 4.3 g/dL 3.2-4.5 Serum or plasma troponin i.cardiac measurement (mass/volume) - 01/15/17 11:19 Serum or plasma troponin i.cardiac measurement (mass/volume) < ng/ mL <0.30 Magnesium - 01/15/17 12:40 Magnesium 2.0 mg/dL 1.8-2.4 Complete urinalysis with reflex to culture - 01/15/17 13:46 Urine color determination YELLOW NRG Urine clarity determination CLEAR NRG Urine pH measurement by test strip 6 5-9 Specific gravity of urine by test strip 1.010 1.016- 1.022 Urine protein assay by test strip, semi-quantitative NEGATIVE NEGATIVE Urine glucose detection by automated test strip NEGATIVE NEGATIVE Erythrocytes detection in urine sediment by light microscopy NEGATIVE NEGATIVE Urine ketones detection by automated test strip NEGATIVE NEGATIVE Urine nitrite detection by test strip NEGATIVE NEGATIVE Urine total bilirubin detection by test strip NEGATIVE NEGATIVE Urine urobilinogen measurement by automated test strip (mass/volume) NORMAL NORMAL Urine leukocyte esterase detection by dipstick NEGATIVE NEGATIVE Automated urine sediment erythrocyte count by microscopy (number/high power field) NONE NRG Automated urine sediment leukocyte count by microscopy (number/high power field ) NONE NRG Bacteria detection in urine sediment by light microscopy NEGATIVE NRG Squamous epithelial cells detection in urine sediment by light microscopy RARE NRG Crystals detection in urine sediment by light microscopy NONE NRG Casts detection in urine sediment by light microscopy NONE NRG Mucus detection in urine sediment by light microscopy NEGATIVE NRG Complete urinalysis with reflex to culture NO NRG Automated blood complete blood count (hemogram) panel - 01/21/17 07:18 Blood leukocytes automated count (number/volume) 7.0 10*3/uL 4.3-11.0 Blood erythrocytes automated count (number/volume) 6.63 10*6/uL 4.35-5.85 Venous blood hemoglobin measurement (mass/volume) 12.4 g/dL 11.5-16.0 Blood hematocrit (volume fraction) 39 % 35-52 Automated erythrocyte mean corpuscular volume 58 [foz_us] 80-99 Automated erythrocyte mean corpuscular hemoglobin (mass per erythrocyte) 19 pg 25-34 Automated erythrocyte mean corpuscular hemoglobin concentration measurement ( mass/volume) 32 g/dL 32-36 Automated erythrocyte distribution width ratio 19.6 % 10.0-14.5 Automated blood platelet count (count/volume) 321 10*3/uL 130-400 Automated blood platelet mean volume measurement TNP 7.4 -10.4 PT panel in platelet poor plasma by coagulation assay - 01/21/17 07:18 Prothrombin time (PT) in platelet poor plasma by coagulation assay 13.1 s 12.2-14.7 INR in platelet poor plasma or blood by coagulation assay 1.0 0.8-1.4 Activated partial thromboplastin time (aPTT) in platelet poor plasma bycoagulation assay - 01/21/17 07:18 Activated partial thromboplastin time (aPTT) in platelet poor plasma bycoagulation assay 35 s 24-35 Comprehensive metabolic panel - 01/21/17 07:18 Serum or plasma sodium measurement (moles/volume) 142 mmol/L 135-145 Serum or plasma potassium measurement (moles/volume) 4.0 mmol/L 3.6-5.0 Serum or plasma chloride measurement (moles/volume) 105 mmol/L 98-107 Carbon dioxide 23 mmol/L 21-32 Serum or plasma anion gap determination (moles/volume) 14 mmol/L 5-14 Serum or plasma urea nitrogen measurement (mass/volume) 28 mg/dL 7-18 Serum or plasma creatinine measurement (mass/volume) 0.99 mg/dL 0.60-1.30 Serum or plasma urea nitrogen/creatinine mass ratio 28 NRG Serum or plasma creatinine measurement with calculation of estimated glomerular filtration rate 55 NRG Serum or plasma glucose measurement (mass/volume) 118 mg/dL 70-105 Serum or plasma calcium measurement (mass/volume) 9.6 mg/dL 8.5-10.1 Serum or plasma total bilirubin measurement (mass/volume) 1.0 mg/dL 0.1-1.0 Serum or plasma alkaline phosphatase measurement (enzymatic activity/volume) 48 U/L 40-136 Serum or plasma aspartate aminotransferase measurement (enzymatic activity/ volume) 15 U/L 5-34 Serum or plasma alanine aminotransferase measurement (enzymatic activity/volume ) 17 U/L 0-55 Serum or plasma protein measurement (mass/volume) 7.9 g/dL 6.4-8.2 Serum or plasma albumin measurement (mass/volume) 4.7 g/dL 3.2-4.5 Lipid 1996 panel - 01/21/17 07:18 Serum or plasma triglyceride measurement (mass/volume) 123 mg/dL <150 Serum or plasma cholesterol measurement (mass/volume) 188 mg/dL < 200 Serum or plasma cholesterol in HDL measurement (mass/volume) 56 mg/ dL 40-60 Cholesterol in LDL [mass/volume] in serum or plasma by direct assay 112 mg/dL 1-129 Serum or plasma cholesterol in VLDL measurement (mass/volume) 25 mg/ dL 5-40 Methicillin resistant Staphylococcus aureus (MRSA) screening culture - 07:18 Methicillin resistant Staphylococcus aureus (MRSA) screening culture NEG NRG Magnesium - 02/24/17 13:20 Magnesium 1.7 mg/dL 1.8-2.4 Capillary blood glucose measurement by glucometer (mass/volume) - 05/02/17 14: 58 Capillary blood glucose measurement by glucometer (mass/volume) 462 mg/dL 70-110 Complete urinalysis with reflex to culture - 05/02/17 15:16 Urine color determination YELLOW NRG Urine clarity determination CLEAR NRG Urine pH measurement by test strip 5 5-9 Specific gravity of urine by test strip 1.010 1.016- 1.022 Urine protein assay by test strip, semi-quantitative NEGATIVE NEGATIVE Urine glucose detection by automated test strip 4+ NEGATIVE Erythrocytes detection in urine sediment by light microscopy NEGATIVE NEGATIVE Urine ketones detection by automated test strip 2+ NEGATIVE Urine nitrite detection by test strip NEGATIVE NEGATIVE Urine total bilirubin detection by test strip NEGATIVE NEGATIVE Urine urobilinogen measurement by automated test strip (mass/volume) NORMAL NORMAL Urine leukocyte esterase detection by dipstick 1+ NEGATIVE Automated urine sediment erythrocyte count by microscopy (number/high power field) NONE NRG Automated urine sediment leukocyte count by microscopy (number/high power field ) [HPF] NRG Bacteria detection in urine sediment by light microscopy FEW NRG Squamous epithelial cells detection in urine sediment by light microscopy 2-5 NRG Crystals detection in urine sediment by light microscopy NONE NRG Casts detection in urine sediment by light microscopy NONE NRG Mucus detection in urine sediment by light microscopy NEGATIVE NRG Complete urinalysis with reflex to culture NO NRG Complete blood count (CBC) with automated white blood cell (WBC) differential - 05/02/17 15:27 Blood leukocytes automated count (number/volume) 9.9 10*3/uL 4.3-11.0 Blood erythrocytes automated count (number/volume) 6.60 10*6/uL 4.35-5.85 Venous blood hemoglobin measurement (mass/volume) 12.3 g/dL 11.5-16.0 Blood hematocrit (volume fraction) 38 % 35-52 Automated erythrocyte mean corpuscular volume 57 [foz_us] 80-99 Automated erythrocyte mean corpuscular hemoglobin (mass per erythrocyte) 19 pg 25-34 Automated erythrocyte mean corpuscular hemoglobin concentration measurement ( mass/volume) 33 g/dL 32-36 Automated erythrocyte distribution width ratio 20.3 % 10.0-14.5 Automated blood platelet count (count/volume) 285 10*3/uL 130-400 Automated blood platelet mean volume measurement TNP 7.4 -10.4 Automated blood neutrophils/100 leukocytes 73 % 42-75 Automated blood lymphocytes/100 leukocytes 18 % 12-44 Blood monocytes/100 leukocytes 9 % 0-12 Automated blood eosinophils/100 leukocytes 1 % 0-10 Automated blood basophils/100 leukocytes 0 % 0-10 Blood neutrophils automated count (number/volume) 7.2 10*3 1.8-7.8 Blood lymphocytes automated count (number/volume) 1.7 10*3 1.0-4.0 Blood monocytes automated count (number/volume) 0.9 10*3 0.0-1.0 Automated eosinophil count 0.1 10*3/uL 0.0-0.3 Automated blood basophil count (count/volume) 0.0 10*3/uL 0.0-0.1 Comprehensive metabolic panel - 05/02/17 15:27 Serum or plasma sodium measurement (moles/volume) 130 mmol/L 135-145 Serum or plasma potassium measurement (moles/volume) 4.4 mmol/L 3.6-5.0 Serum or plasma chloride measurement (moles/volume) 91 mmol/L 98-107 Carbon dioxide 24 mmol/L 21-32 Serum or plasma anion gap determination (moles/volume) 15 mmol/L 5-14 Serum or plasma urea nitrogen measurement (mass/volume) 17 mg/dL 7-18 Serum or plasma creatinine measurement (mass/volume) 1.26 mg/dL 0.60-1.30 Serum or plasma urea nitrogen/creatinine mass ratio 13 NRG Serum or plasma creatinine measurement with calculation of estimated glomerular filtration rate 41 NRG Serum or plasma glucose measurement (mass/volume) 485 mg/dL 70-105 Serum or plasma calcium measurement (mass/volume) 9.5 mg/dL 8.5-10.1 Serum or plasma total bilirubin measurement (mass/volume) 1.1 mg/dL 0.1-1.0 Serum or plasma alkaline phosphatase measurement (enzymatic activity/volume) 70 U/L 40-136 Serum or plasma aspartate aminotransferase measurement (enzymatic activity/ volume) 20 U/L 5-34 Serum or plasma alanine aminotransferase measurement (enzymatic activity/volume ) 25 U/L 0-55 Serum or plasma protein measurement (mass/volume) 7.4 g/dL 6.4-8.2 Serum or plasma albumin measurement (mass/volume) 4.3 g/dL 3.2-4.5 Serum or plasma phosphate measurement (mass/volume) - 05/02/17 15:27 Serum or plasma phosphate measurement (mass/volume) 3.5 mg/dL 2.3-4.7 Magnesium - 05/02/17 15:27 Magnesium 2.0 mg/dL 1.8-2.4 Serum or plasma C reactive protein measurement (mass/volume) - 05/02/17 15:27 Serum or plasma C reactive protein measurement (mass/volume) 1.24 mg /dL 0.00-0.50 Capillary blood glucose measurement by glucometer (mass/volume) - 05/02/17 16: 16 Capillary blood glucose measurement by glucometer (mass/volume) 383 mg/dL 70-110 Capillary blood glucose measurement by glucometer (mass/volume) - 05/02/17 16: 57 Capillary blood glucose measurement by glucometer (mass/volume) 345 mg/dL 70-110 Encounters ACCT No. Visit Date/Time Discharge Status Pt. Type Provider Facility Loc./Unit Complaint [id number] 04/04/2017 07:24:00 04/04/2017 23:59:59 CLS Outpatient ARABELLA AYDAV MD, FACC, FACP CCDS [facility] I42.0 E78.4 [id number] 02/24/2017 13:10:00 02/24/2017 23:59:59 CLS Outpatient LINDSEY SNIDER [facility] E83.42 [id number] 01/31/2017 12:16:00 01/31/2017 23:59:59 CLS Outpatient BAIMA, LINDSEY L FILTER TIP INSPECTOR [facility] I50.22 I48.0 [id number] 01/21/2017 06:58:00 01/21/2017 13:30:00 DIS Outpatient VICENTA DURAN FACC, ARABELLA SCHUMACHER CCDS [facility] CATH CM,CAD,HL [id number] 01/16/2017 19:59:00 01/17/2017 06:20:00 DIS Outpatient WHITLEY DURAN, DARLYN Dupree [facility] SLEEP KARLY [id number] 01/15/2017 11:14:00 01/15/2017 13:43:00 DIS Emergency LAVINIA DURAN, BAHMAN Worrell [facility] ER CHEST DISCOMFORT/SOB X 3 DAYS [id number] 12/31/2016 07:06:00 12/31/2016 23:59:59 CLS Outpatient BAIMA LINDSEY L FILTER TIP INSPECTOR [facility] CARD CAD [id number] 12/27/2016 10:45:00 12/27/2016 23:59:59 CLS Outpatient BAIMA LINDSEY L FILTER TIP INSPECTOR [facility] CARD I48.0 I35.8 I25.10 [id number] 03/19/2016 07:50:00 03/19/2016 23:59:59 CLS Outpatient VICENTA DURAN FACC, ARABELLA SCHUMACHER CCDS [facility] CAD,HLD,HTN [id number] 03/19/2016 07:30:00 03/19/2016 07:30:00 CAN Preadmit VICENTA DURAN FACC, ARABELLA SCHUMACHER CCDS [facility] ONC CAD,HLD,HTN [id number] 09/15/2015 07:36:00 09/15/2015 23:59:59 CLS Outpatient BAIMA, LINDSEY L FILTER TIP INSPECTOR [facility] EDEMA,CLAUDICATION,AF ,CAD [id number] 03/15/2015 06:56:00 03/15/2015 23:59:59 CLS Outpatient BAIMA, LINDSEY L FILTER TIP INSPECTOR [facility] CAD [id number] 02/02/2015 08:54:00 02/02/2015 10:37:00 DIS Emergency LAVINIA DURAN, BAHMAN Worrell [facility] ER LEFT LEG/ANKLE SWELLING [id number] 09/08/2014 07:25:00 09/08/2014 23:59:59 CLS Outpatient BAIMA, LINDSEY L FILTER TIP INSPECTOR [facility] AF,AORTIC VALVE SCLEROSIS [id number] 07/18/2014 09:08:00 07/18/2014 23:59:59 CLS Outpatient BAIMA, LINDSEY L FILTER TIP INSPECTOR [facility] CARD AFIB [id number] 06/07/2014 07:34:00 06/07/2014 23:59:59 CLS Outpatient BAIMA, LINDSEY L FILTER TIP INSPECTOR [facility] CARD AFIB [id number] 05/24/2014 07:55:00 05/24/2014 23:59:59 CLS Outpatient VICENTA DURAN FACC, ARABELLA SCHUMACHER CCDS [facility] CARD CAD HTN HLE [id number] 05/23/2014 10:32:00 05/23/2014 23:59:59 CLS Outpatient VICENTA DURAN FACC, ALI FACJoon CCDS [facility] CARD CAD,AORTIC VALVE SCLEROISIS, HTN,HLD,OBESITY [id number] 05/03/2014 07:20:00 05/03/2014 23:59:59 CLS Outpatient BAIMA, LINDSEY L FILTER TIP INSPECTOR [facility] HLD,CAD [id number] 12/16/2013 07:22:00 12/16/2013 23:59:59 CLS Outpatient CB SOTO MD [facility] HTN,NIDDM [id number] 09/30/2013 07:18:00 09/30/2013 23:59:59 CLS Outpatient BAIMA, LINDSEY L FILTER TIP INSPECTOR [facility] STATIN TX,CAD, HYPERTENSION,HYPERLIPIDEMIA [id number] 07/28/2013 10:15:00 08/25/2013 00:01:00 DIS Outpatient LINCOLN CASANOVA [facility] ONC [id number] 07/28/2013 06:58:00 07/28/2013 23:59:59 CLS Outpatient YESENIA TONI M SOCORRO [facility] HYPERLIPIDEMIA,DM, QUALITY LEAD MED USE [id number] 07/20/2013 09:12:00 07/20/2013 23:59:59 CLS Outpatient LINCOLN CASANOVA [facility] RAD THALASSEMIA LOWER EXT LYMPDEMA [id number] 03/26/2013 07:14:00 03/26/2013 23:59:59 CLS Outpatient CB SOTO MD [facility] HTN,NIDDM,SHELTER MED USAGE [id number] 11/30/2012 07:18:00 11/30/2012 23:59:59 CLS Outpatient LINDSEY SNIDER [facility] HLP,STATIN [place] [id number] 11/04/2012 07:18:00 11/04/2012 23:59:59 CLS Outpatient CB SOTO MD [facility] HTN,ABN GLUCOSE, ANEMIA [id number] 09/23/2012 09:38:00 09/25/2012 09:33:00 DIS Outpatient CB SOTO MD [facility] REHAB JANICE LEG PAIN, OSTEOARTHRITIS [id number] 05/02/2017 17:50:00 ACT Inpatient CB SOTO MD [facility] 4TH UNCONTROLLED DIABETES [id number] 04/30/2017 11:35:00 ACT Outpatient VICENTA DURAN FACCARABELLA FACP CCDS [facility] CARD CAD [id number] 05/18/2015 11:40:00 Document Registration [id number] 06/10/2012 08:24:00 Document Registration [id number] 06/05/2012 13:39:00 Document Registration [id number] 06/01/2012 07:22:00 Document Registration [id number] 02/13/2012 07:14:00 Document Registration [id number] 01/08/2012 09:56:00 Document Registration [id number] 01/07/2012 13:32:00 Document Registration [id number] 01/01/2012 10:13:00 Document Registration [id number] 12/19/2011 10:17:00 Document Registration [id number] 08/20/2011 08:12:00 Document Registration [id number] 07/23/2011 07:20:00 Document Registration [id number] 01/30/2011 06:34:00 Document Registration [id number] 07/18/2010 06:40:00 Document Registration [id number] 02/28/2010 13:28:00 Document Registration [id number] 02/23/2010 22:39:00 Document Registration [id number] 02/14/2010 06:35:00 Document Registration [id number] 09/12/2009 05:52:00 Document Registration
[2017-05-02 19:28] VITALS: BP 124/70
[2017-05-02] MEDS ORDERED: CATHETER FLUSH 10 ML SYR IV PRN (19:45)
[2017-05-02] MEDS: NS IV 1000 ML 1,000 ML IV SCH (19:56)
[2017-05-02] MEDS: inSUlin DETERMIR 1 UNIT/0.01 ML (LEVEMIR) CHARGE PER UNIT SQ SCH (21:32)
[2017-05-02] MEDS ORDERED: inSUlin (REGULAR) HUMAN 1 UNIT/0.01 ML (CHARGE PER UNIT) ONE (21:37)
[2017-05-02] MEDS: inSUlin (REGULAR) HUMAN 1 UNIT/0.01 ML (CHARGE PER UNIT) SC SCH (21:40)
[2017-05-02] MEDS ORDERED: METF500T4 PO (22:00)
[2017-05-02] MEDS ORDERED: RT-ALBUTEROL/IPRATROPIUM 3 ML (DUONEB) VIAL INH PRN (23:15)
[2017-05-02] MEDS ORDERED: ACETAMINOPHEN 325 MG TABLET/CAPLET (TYLENOL) PO PRN (23:30)
[2017-05-03] VITALS: BP 116/64
[2017-05-03] MEDS ORDERED: ACETAMINOPHEN 500 MG TAB (TYLENOL) ONE (00:10)
[2017-05-03] MEDS: ACETAMINOPHEN 500 MG TAB (TYLENOL) PO PRN ×2 (00:19→09:00)
[2017-05-03 04:00] VITALS: BP 105/70
[2017-05-03] MEDS: inSUlin (REGULAR) HUMAN 1 UNIT/0.01 ML (CHARGE PER UNIT) SC SCH ×4 (05:43→21:11)
[2017-05-03 05:52] LABS: BASOPHILS % (AUTO) 0 % (0-10); EOSINOPHILS # (AUTO) 0.1 10^3/uL (0.0-0.3); EOSINOPHILS % (AUTO) 1 % (0-10); HEMATOCRIT 34 % (35-52); HEMOGLOBIN 11.3 G/DL (11.5-16.0); LYMPHOCYTES # (AUTO) 1.9 X 10^3 (1.0-4.0); LYMPHOCYTES % (AUTO) 25 % (12-44); MEAN CORPUSCULAR HEMOGLOBIN 19 PG (25-34); MEAN CORPUSCULAR HGB CONC 33 G/DL (32-36); MEAN CORPUSCULAR VOLUME 58 FL (80-99); MONOCYTES # (AUTO) 0.7 X 10^3 (0.0-1.0); MONOCYTES % (AUTO) 9 % (0-12); NEUTROPHILS # (AUTO) 4.8 X 10^3 (1.8-7.8); NEUTROPHILS % (AUTO) 64 % (42-75); PLATELET COUNT 268 10^3/uL (130-400); RED CELL DISTRIBUTION WIDTH 18.8 % (10.0-14.5); WHITE BLOOD COUNT 7.4 10^3/uL (4.3-11.0)
[2017-05-03 06:05] LABS: ALANINE AMINOTRANSFERASE 18 U/L (0-55); ALBUMIN 3.7 GM/DL (3.2-4.5); ALKALINE PHOSPHATASE 55 U/L (40-136); BILIRUBIN,TOTAL 1.1 MG/DL (0.1-1.0); BUN/CREATININE RATIO 17; CALCIUM 8.6 MG/DL (8.5-10.1); CARBON DIOXIDE 22 MMOL/L (21-32); CHLORIDE 98 MMOL/L (98-107); CREATININE SERUM 0.86 MG/DL (0.60-1.30); GFR ESTIMATED > 60; GLUCOSE 226 MG/DL (70-105); POTASSIUM 3.5 MMOL/L (3.6-5.0); SODIUM 133 MMOL/L (135-145); TOTAL PROTEIN 6.2 GM/DL (6.4-8.2)
[2017-05-03 08:45] VITALS: BP 117/62
[2017-05-03] MEDS ORDERED: DIGOXIN 0.25 MG (LANOXIN) TAB PO SCH (09:29)
[2017-05-03] MEDS ORDERED: FOLIC ACID 1 MG TAB PO SCH (09:30)
[2017-05-03] MEDS ORDERED: APIXABAN 5 MG (ELIQUIS) TABLET PO SCH (09:30)
[2017-05-03] MEDS ORDERED: FUROSEMIDE 40 MG (LASIX) TAB PO SCH (09:31)
[2017-05-03] MEDS ORDERED: lisINopril 5 MG (PRINIVIL) TABLET PO SCH (09:31)
[2017-05-03] MEDS ORDERED: PATIENT MAY USE OWN MEDS, ALL MC SCH (10:45)
--- NOTE | 2017-05-03 11:00 | History & Physical-Hospitalist ---
HPI History of Present Illness: HPI/Chief Complaint The patient is a 76-year-old white female known to me. She reports that she had seen Dr. Hampton on Friday of this week for a general physical. In that process she had a blood sugar and hemoglobin A1c done. On Friday she called back to the office and was informed that her blood sugar was considerably high and she was started on metformin 500 mg daily. This continued to trend higher and that on she was increased to metformin 500 mg twice a day. She presented to the emergency room yesterday complaining of blurred vision, thirst , frequency of urination, and a glucometer reading of high Date Seen 05/03/17 Time Seen by Provider: 10:57 Attending Physician Viri Hampton MD PCP Viri Hampton MD Referring Physician Date of Admission May 02, 2017 at 17:50 Home Medications & Allergies Home Medications Reviewed patient Home Medication Reconciliation Form Allergies Allergies Coded Allergies No Known Drug Allergies (Verified07/18/09) Past Cpdqqtg-Zitqxp-Lsiqwl Hx Patient Social History Alcohol Use: Denies Use Recreational Drug Use: No Smoking Status: Never a Smoker Physical Abuse Screen: No Sexual Abuse: No Recent Foreign Travel: No Contact w/other who traveled: No Recent Hopitalizations: No Recent Infectious Disease Expo: No Immunizations Up To Date Date of Pneumonia Vaccine: Apr 21, 2013 Date of Influenza Vaccine: Feb 04, 2017 Seasonal Allergies Seasonal Allergies: No Surgeries Yes (RIGHT KNEE SURGERY) Orthopedic Respiratory No (RECENTLY DIAGNOSED, HASN'T HAD TIME TO GET CPAP SET UP) Currently Using CPAP: Yes (3MONTHS SINCE STARTED USING IT) Cardiovascular Yes (ANEMIA-THALACEMIA MINOR, LYMPHEDEMA, STENT-2006) Atrial Fibrillation, Hypertension Neurological Yes (PT STATES HAD MIGRAINES IN HER 30'S) Reproductive System Hx Reproductive Disorders: No Sexually Transmitted Disease: No HIV/AIDS: No Gastrointestinal No Musculoskeletal Yes Osteoporosis Endocrine History of Endocrine Disorders: Yes Endocrine Disorders: Diabetes, Non-Insulin dep Are Your Blood Sugars Over 250: Yes HEENT History of HEENT Disorders: Yes HEENT Disorders: Cataract Cancer No Psychosocial History of Psychiatric Problem: No Behavioral Health Disorders: Anxiety Integumentary History of Skin or Integumenta: No Blood Transfusions History of Blood Disorders: No Reviewed Nursing Assessment Reviewed/Agree w Nursing PMH: Yes Family Medical History Significant Family History: No Pertinent Family Hx Family Hx: FHx: heart disease 19 MOTHER Review of Systems Constitutional: see HPI EENTM: no symptoms reported Respiratory: dyspnea on exertion, other (has CPAP at home) Cardiovascular: palpitations (atrial fibrillation) Gastrointestinal: no symptoms reported Genitourinary: frequency, nocturia, other (thirst) Musculoskeletal: no symptoms reported Skin: no symptoms reported Psychiatric/Neurological: No Symptoms Reported Physical Exam Physical Exam Vital Signs Vital Sign - Last 12Hours 05/02/17 15:01 Temp 99.4 Pulse 100 Resp 18 B/P (MAP) 111/78 (89) Pulse Ox 96 O2 Delivery Room Air Capillary Refill : Less Than 3 Seconds General Appearance: No Apparent Distress, WD/WN Eyes: Bilateral Eye Normal Inspection HEENT: Normal ENT Inspection Neck: Normal Inspection Respiratory: Chest Non Tender, Lungs Clear, Normal Breath Sounds, No Accessory Muscle Use, No Respiratory Distress Cardiovascular: Irregularly Irregular Gastrointestinal: Normal Bowel Sounds, No Organomegaly, No Pulsatile Mass, Non Tender, Soft Back: Normal Inspection, No CVA Tenderness, No Vertebral Tenderness Extremity: Normal Capillary Refill, Normal Inspection, Normal Range of Motion, Non Tender, No Calf Tenderness, No Pedal Edema Skin: Normal Color, Warm/Dry Lymphatic: No Adenopathy Results Results/Procedures Lab Laboratory Tests 05/02/17 15:27 05/03/17 05:10 Assessment/Plan Admission Diagnosis New-onset diabetes mellitus. 2.atrial fibrillation, chronic 3.sleep apnea 4.10 pound weight loss over past 2 weeks Assessment and Plan Initiation of insulin therapy Clinical Quality Measures DVT/VTE Risk/Contraindication: Risk Factor Score Per Nursin RFS Level Per Nursing on Admit: 4+=Very High BAHMAN KATE MD May 03, 2017 10:59
[2017-05-03] MEDS ORDERED: inSUlin DETERMIR 1 UNIT/0.01 ML (LEVEMIR) CHARGE PER UNIT SQ NR (11:01)
[2017-05-03] MEDS: FOLIC ACID 1 MG TAB PO SCH (11:17)
[2017-05-03] MEDS: APIXABAN 5 MG (ELIQUIS) TABLET PO SCH ×2 (11:18→20:46)
[2017-05-03] MEDS: FUROSEMIDE 40 MG (LASIX) TAB PO SCH (11:19)
[2017-05-03] MEDS: DIGOXIN 0.25 MG (LANOXIN) TAB PO SCH (11:19)
[2017-05-03] MEDS: ASPIRIN 81 MG CHEW (CHILDREN'S ASA) PO SCH (11:20)
[2017-05-03] MEDS: lisINopril 5 MG (PRINIVIL) TABLET PO SCH (11:20)
[2017-05-03] MEDS: meTOprolol TARTRATE 50 MG (LOPRESSOR) TAB PO SCH (11:24)
[2017-05-03 12:50] VITALS: BP 131/79
[2017-05-03] MEDS: NS IV 1000 ML 1,000 ML IV SCH (15:58)
[2017-05-03 16:53] VITALS: BP 112/73
[2017-05-03 20:00] VITALS: BP 103/62
[2017-05-03] MEDS: inSUlin DETERMIR 1 UNIT/0.01 ML (LEVEMIR) CHARGE PER UNIT SQ SCH (21:11)
[2017-05-04] VITALS: BP 109/62
[2017-05-04 04:20] VITALS: BP 120/68
[2017-05-04] MEDS: FOLIC ACID 1 MG TAB PO SCH (06:05)
[2017-05-04] MEDS: inSUlin (REGULAR) HUMAN 1 UNIT/0.01 ML (CHARGE PER UNIT) SC SCH ×4 (06:05→21:45)
[2017-05-04 08:00] VITALS: BP 122/74
[2017-05-04] MEDS: DIGOXIN 0.25 MG (LANOXIN) TAB PO SCH (08:11)
[2017-05-04] MEDS: meTOprolol TARTRATE 50 MG (LOPRESSOR) TAB PO SCH (08:11)
[2017-05-04] MEDS: ASPIRIN 81 MG CHEW (CHILDREN'S ASA) PO SCH (08:11)
[2017-05-04] MEDS: FUROSEMIDE 40 MG (LASIX) TAB PO SCH (08:11)
[2017-05-04] MEDS: APIXABAN 5 MG (ELIQUIS) TABLET PO SCH ×2 (08:12→20:57)
[2017-05-04] MEDS: lisINopril 5 MG (PRINIVIL) TABLET PO SCH (08:12)
[2017-05-04] MEDS: ACETAMINOPHEN 500 MG TAB (TYLENOL) PO PRN (10:12)
[2017-05-04] MEDS: inSUlin DETERMIR 1 UNIT/0.01 ML (LEVEMIR) CHARGE PER UNIT SQ SCH (12:11)
[2017-05-04 12:30] VITALS: BP 127/78
--- NOTE | 2017-05-04 12:49 | Progress Note-Hospitalist ---
Standard Progress Note Progress Notes/Assess & Plan Date Seen 05/04/17 Time Seen by Provider: 11:50 Diagnosis New-onset diabetes mellitus. 2.atrial fibrillation, chronic 3.sleep apnea 4.10 pound weight loss over past 2 weeks Assess & Plan/Chief Complaint The patient has many questions. It would be well and good for her to see the nurse educator for diabetes tomorrow. I have increased her dose of Levemir and started a planned mealtime administration of NovoLog. Physical exam: She is alert and oriented. Lungs are clear to auscultation. CV is irregular and consistent with atrial fibrillation. There is no pedal edema. Impression: New-onset diabetes Plan: Increase dose of Levemir and began scheduled NovoLog at mealtime. Schedule consultation with nurse educator for diabetes. Labs Laboratory Tests 05/02/17 15:27 05/03/17 05:10 BAHMAN KATE MD May 04, 2017 12:49
[2017-05-04] MEDS ORDERED: NITR0.4T42 PO (15:44)
[2017-05-04] MEDS ORDERED: METO-395 PO (15:44)
[2017-05-04] MEDS ORDERED: POTA10TA10 PO (15:44)
[2017-05-04] MEDS ORDERED: MAGN400T6 PO (15:47)
[2017-05-04] MEDS: inSUlin ASPART (NovoLOG) 1 UNIT/0.01 ML (CHARGE PER UNIT) SC SCH (15:54)
[2017-05-04 16:34] VITALS: BP 88/64
[2017-05-04 20:22] VITALS: BP 114/71
[2017-05-05 00:04] VITALS: BP 100/70
[2017-05-05 04:11] VITALS: BP 113/74
[2017-05-05] MEDS: FOLIC ACID 1 MG TAB PO SCH (06:00)
[2017-05-05] MEDS: inSUlin ASPART (NovoLOG) 1 UNIT/0.01 ML (CHARGE PER UNIT) SC SCH ×2 (06:01→11:33)
[2017-05-05] MEDS: inSUlin (REGULAR) HUMAN 1 UNIT/0.01 ML (CHARGE PER UNIT) SC SCH ×2 (06:02→13:18)
[2017-05-05 07:28] VITALS: BP 113/74
[2017-05-05 08:00] VITALS: BP 118/74
[2017-05-05] MEDS: ACETAMINOPHEN 500 MG TAB (TYLENOL) PO PRN (08:05)
[2017-05-05] MEDS: APIXABAN 5 MG (ELIQUIS) TABLET PO SCH (08:34)
[2017-05-05] MEDS: DIGOXIN 0.25 MG (LANOXIN) TAB PO SCH (08:34)
[2017-05-05] MEDS: lisINopril 5 MG (PRINIVIL) TABLET PO SCH (08:35)
[2017-05-05] MEDS: FUROSEMIDE 40 MG (LASIX) TAB PO SCH (08:35)
[2017-05-05] MEDS ORDERED: DIGOXIN 0.25 MG (LANOXIN) TAB PO SCH (09:00)
--- NOTE | 2017-05-05 09:18 | Discharge Summary ---
Diagnosis/Chief Complaint Date of Admission May 02, 2017 at 17:50 Date of Discharge Admission Diagnosis Admission Diagnosis diabetes mellitus hypertension chronic lymphedema Discharge Summary Discharge Physical Examination Allergies: Coded Allergies: No Known Drug Allergies (Verified , 07/18/09) Vitals & I&Os Vital Signs Date Time Temp Pulse Resp B/P (MAP) Pulse Ox O2 Delivery O2 Flow Rate FiO2 05/05/17 07:28 81 96 21 05/05/17 07:26 Room Air 05/05/17 04:11 98.2 18 113/74 (87) Hospital Course Pending Labs Laboratory Tests 05/05/17 05:31: Glucometer 180 Discharge Instructions to patient/family Please see electronic discharge instructions given to patient. Discharge Medications Reviewed and agree with Discharge Medication list on patient's Discharge Instruction sheet Clinical Quality Measures DVT/VTE Risk/Contraindication: Risk Factor Score Per Nursin RFS Level Per Nursing on Admit: 4+=Very High CB SOTO MD May 05, 2017 09:18
[2017-05-05] MEDS ORDERED: INSU100V16 SC (09:22)
[2017-05-05] MEDS ORDERED: INSU100V5 SQ (09:22)
--- NOTE | 2017-05-05 09:22 | Discharge Inst-Complex ---
PDI Med Rec & Follow Up Appt. New Medications: Insulin Aspart (Novolog) 100 Unit/1 Ml Susp 5 UNIT SC AC, #3 EA 3 Refills from pre-filled pen give 5 units of insulin with meals Insulin Determir (Levemir) 1,000 Units/10 Ml Soln 30 UNIT SQ DAILY@1200, #3 EA from pre-filled pen give 30 units of levemir at lunch - (pharmacy may dispense formulary alternative) Continued Medications: Apixaban (Eliquis) 5 Mg Tablet 5 MG PO BID, TAB Digoxin (Digoxin) 250 Mcg Tablet 250 MCG PO DAILY, TAB Folic Acid (Folic Acid) 1 Mg Tablet 1 MG PO DAILY, TAB Furosemide (Furosemide) 40 Mg Tablet 40 MG PO DAILY, TAB Lisinopril (Lisinopril) 5 Mg Tablet 5 MG PO DAILY, TAB Magnesium Oxide (Magnesium Oxide) 400 Mg Tablet 400 MG PO DAILY, TAB Metoprolol Succinate (Metoprolol Succinate) 100 Mg Tab.er.24h 100 MG PO DAILY Nitroglycerin (Nitroglycerin) 0.4 Mg Tab.subl 0.4 MG PO PRN PRN for CHEST PAIN Potassium Chloride (Potassium Chloride) 10 Meq Tablet.er 10 MEQ PO DAILY Tramadol HCl (Tramadol HCl) 50 Mg Tablet 50 MG PO Q6HR PRN for PAIN-MILD, TAB Discontinued Medications: Metformin HCl (Metformin HCl) 500 Mg Tablet 500 MG PO DAILY for Hyperglycemia, TAB Prescription: Transmitted to Pharmacy Activity, Diet and PDI Resume Normal Activity: Yes Discharge Diet: ADA Diet Drink 6-8 Glasses of Fluid/Day: Yes Driving Instructions: No Driving for 24 Hours Symptoms to Reoprt to : Appetite Changes, Fever Over 101 Degrees F, Pain/ Pressure in Chest, Dizziness/Fainting, Nausea/Vomiting, Shortness of Breath, Weight Gain Over 2 Pounds For Problems or Questions: Contact Your Physician, Go to Emergency Room Infection Signs and Symptoms: Temperature Above 101 F CB SOTO MD May 05, 2017 09:22
[2017-05-05] MEDS: ASPIRIN 81 MG CHEW (CHILDREN'S ASA) PO SCH (11:29)
[2017-05-05] MEDS: meTOprolol TARTRATE 50 MG (LOPRESSOR) TAB PO SCH (11:29)
[2017-05-05] MEDS: inSUlin DETERMIR 1 UNIT/0.01 ML (LEVEMIR) CHARGE PER UNIT SQ SCH (13:21)
[2017-05-05 13:47] VITALS: BP 126/76
== END 2017-05-05 09:17 | disposition home or self-care (01) ==
LOC: EDUNIT# 14:15 → ER 14:17 → 4TH 17:50 → UNDOADMOB 17:50 → 4TH 19:28 → UNDODISOB 05-05 14:03
PROVIDERS: ADMIT Internal Medicine; ATTEND Family Medicine
DX: E11.65 Type 2 diabetes mellitus with hyperglycemia (principal); I10 Essential (primary) hypertension; I89.0 Lymphedema, not elsewhere classified; I48.2 Chronic atrial fibrillation; G47.30 Sleep apnea, unspecified; R63.4 Abnormal weight loss; M81.0 Age-related osteoporosis without current pathological fracture; F41.9 Anxiety disorder, unspecified; D56.3 Thalassemia minor; Z79.82 Long term (current) use of aspirin; Z79.899 Other long term (current) drug therapy
CPT/HCPCS: 36415; 80053; 81000; 82962; 83735; 84100; 85025; 86141; 94760; 96361; 96374; 96375; G0378

== ENCOUNTER → 2017-06-09 | Outpatient (CLI) | payer MEDICARE ==
[~2017-06-09] MED LIST changes: +INSU100V16 SC; +INSU100V5 SQ; +MAGN400T6 PO; +METF500T4 PO; +METO-395 PO; +NITR0.4T42 PO; +POTA10TA10 PO
== END ==
LOC: DSME 12:00
PROVIDERS: ATTEND Family Medicine
DX: E11.65 Type 2 diabetes mellitus with hyperglycemia (principal); E11.51 Type 2 diabetes mellitus with diabetic peripheral angiopathy without gangrene; I10 Essential (primary) hypertension; E66.9 Obesity, unspecified

== ENCOUNTER → 2017-08-04 | Outpatient (CLI) | payer MEDICARE ==
[~2017-08-04] MED LIST changes: -METF500T4 PO; +METF500T5 PO
[2017-08-04 08:06] LABS: ALANINE AMINOTRANSFERASE 13 U/L (0-55); ALBUMIN 4.4 GM/DL (3.2-4.5); ALKALINE PHOSPHATASE 42 U/L (40-136); BILIRUBIN,TOTAL 0.9 MG/DL (0.1-1.0); BUN/CREATININE RATIO 33; CALCIUM 9.9 MG/DL (8.5-10.1); CARBON DIOXIDE 21 MMOL/L (21-32); CHLORIDE 108 MMOL/L (98-107); CHOLESTEROL 141 MG/DL (< 200); CREATININE SERUM 0.73 MG/DL (0.60-1.30); GFR ESTIMATED > 60; GLUCOSE 122 MG/DL (70-105); HDL CHOLESTEROL 37 MG/DL (40-60); POTASSIUM 4.1 MMOL/L (3.6-5.0); SODIUM 140 MMOL/L (135-145); TOTAL PROTEIN 7.1 GM/DL (6.4-8.2); TRIGLYCERIDES 119 MG/DL (<150); VLDL CHOLESTEROL 24 MG/DL (5-40)
[2017-08-04 08:25] LABS: DIGOXIN 0.37 NG/ML (0.80-2.00)
== END ==
LOC: LAB 07:18
PROVIDERS: ATTEND Internal Medicine Cardiovascular Disease
DX: I42.0 Dilated cardiomyopathy (principal); I25.10 Atherosclerotic heart disease of native coronary artery without angina pectoris; I35.8 Other nonrheumatic aortic valve disorders; I48.91 Unspecified atrial fibrillation; E78.5 Hyperlipidemia, unspecified; I10 Essential (primary) hypertension; E66.9 Obesity, unspecified
CPT/HCPCS: 36415; 80053; 80061; 80162; 84443

== ENCOUNTER → 2019-02-16 | Outpatient (CLI) | payer MEDICARE ==
[~2019-02-16] MED LIST changes: +METF-397 PO; -METF500T5 PO
--- NOTE | 2019-02-16 12:43 | Diagnostic Imaging Report ---
INDICATION: Postmenopausal state. COMPARISON: None available. FINDINGS: AP Spine L1-L4: [BMD (g/cm2): 1.146] [T-Score: -0.5] [Z-Score: 0.2] [BMD Previous: NA] [BMD % Change: NA] LT Hip Neck: [BMD (g/cm2): 0.995] [T-Score: -0.3] [Z-Score: 1.0] LT Hip Total: [BMD (g/cm2):1.040] [T-Score:0.3] [Z-Score: 1.3] [BMD Previous: NA] [BMD % Change: NA] RT Hip Neck: [BMD (g/cm2):1.007] [T-Score:-0.2] [Z-Score:1.1] RT Hip Total: [BMD (g/cm2):1.014] [T-score:0.0] [Z-Score:1.1] [BMD Previous:NA] [BMD % Change:NA] *Indicates significant change from prior examination based on 95% confidence level. World Health Organization criteria for BMD interpretation classify patients as Normal (T-score at or above -1.0), Osteopenic (T-score between -1.0 and -2.5) or Osteoporotic (T-score at or below -2.5). LIMITATIONS AND MODIFICATION: None. IMPRESSION: 1. Normal bone mineral density. 2. Baseline examination. 3. See below National Osteoporosis Foundation guidelines on when to potentially initiate pharmacologic therapy. Based on the National Osteoporosis Foundation Guidelines, pharmacologic treatment should be initiated in any of the following, unless clinical conditions suggest otherwise: * Any patient with prior fragility fracture of the hip or vertebrae. A spine fracture indicates 5X risk for subsequent spine fracture and 2X risk for subsequent hip fracture. * Osteoporosis (T-score <-2.5). * Postmenopausal women and men age 50 and older with low bone mass/osteopenia (T-score between -1.0 and -2.5) by DXA and 10-year major osteoporotic fracture greater than 20% or a 10-year probability of hip fracture greater than 3%. These fracture risks are supplied above in the FRAX score, if applicable. * Clinician judgement and/or patient preferences may indicate treatment for people with 10-year fracture probabilities above or below these levels. Dictated by: Dictated on workstation # [id number]
== END ==
LOC: RAD 10:42
PROVIDERS: ATTEND Family Medicine
DX: M81.0 Age-related osteoporosis without current pathological fracture (principal); M85.80 Other specified disorders of bone density and structure, unspecified site; Z78.0 Asymptomatic menopausal state
CPT/HCPCS: 77080

== ENCOUNTER → 2019-06-22 | Outpatient (CLI) | payer MEDICARE ==
[~2019-06-22] VITALS: Ht 175 cm; Wt 99.0 kg
[~2019-06-22] MED LIST changes: +CATHETER FLUSH 10 ML SYR IV PRN; -DIGO250T PO; +DIGO250T3 PO; -MAGN400T6 PO; +MAGN400T8 PO; -METO-395 PO; +MTP100TCR PO; +REGADENOSON 0.4 MG/5 ML SYR (LEXISCAN) IV ONE; -TRAM50TA2 PO; +TRM50T PO
--- NOTE | 2019-06-23 09:47 | STRESS TEST ---
DATE OF SERVICE: 06/22/2019 RESTING AND POST REGADENOSON TECHNETIUM-99M TETROFOSMIN SPECT CT IMAGING ORDERING PHYSICIAN: Dr. Peguero. PRIMARY PHYSICIAN: Dr. Carter. OTHER PHYSICIAN: Dr. Hampton. CLINICAL DIAGNOSES: Coronary artery disease, hypertension and hyperlipidemia. Baseline images were carried out after injection of 10.46 mCi of technetium-99m Tetrofosmin. This was followed by 0.4 mg Regadenoson and 29.8 mCi of technetium-99m Tetrofosmin. The electrocardiogram showed atrial fibrillation at baseline. There was nonspecific ST abnormality in all the leads. The electrocardiogram did not change significantly with the Regadenoson infusion. The patient tolerated the procedure well. He did not report symptoms. Review of images at rest and following stress does not indicate significant perfusion defects consistent with myocardial ischemia or infarction. Gated images show normal global left ventricular systolic function with normal regional wall motion. Left ventricular ejection fraction is calculated to be 62%. Left ventricular end diastolic volume is 86 mL. TID is absent (1.04). CONCLUSIONS: 1. No evidence of significant myocardial ischemia or infarction on this study. 2. Normal regional wall motion. 3. Normal global left ventricular systolic function with a calculated ejection fraction of 62%. 4. Atrial fibrillation throughout the course of the study. Job ID: [id number] DocumentID: [id number] Dictated Date: 06/23/2019 08:43:10 Electrical Engineering Designer Date: 06/23/2019 09:46:16 Dictated By: ARABELLA PEGUERO MD, MA, FACP, FACC, MTDD
== END ==
LOC: CARD 07:25
PROVIDERS: ATTEND Internal Medicine Cardiovascular Disease
DX: I48.91 Unspecified atrial fibrillation (principal); I25.10 Atherosclerotic heart disease of native coronary artery without angina pectoris; I42.0 Dilated cardiomyopathy; E78.5 Hyperlipidemia, unspecified; I10 Essential (primary) hypertension; G47.33 Obstructive sleep apnea (adult) (pediatric)
CPT/HCPCS: 78452; 93017

== ENCOUNTER → 2019-09-02 | Outpatient (CLI) | payer MEDICARE ==
[~2019-09-02] MED LIST changes: -CATHETER FLUSH 10 ML SYR IV PRN; -REGADENOSON 0.4 MG/5 ML SYR (LEXISCAN) IV ONE
== END ==
LOC: CARD 10:40
PROVIDERS: ATTEND Nurse Practitioner Family
DX: I35.0 Nonrheumatic aortic (valve) stenosis (principal); I48.0 Paroxysmal atrial fibrillation; I25.10 Atherosclerotic heart disease of native coronary artery without angina pectoris; I77.89 Other specified disorders of arteries and arterioles; I10 Essential (primary) hypertension; E78.5 Hyperlipidemia, unspecified; G47.33 Obstructive sleep apnea (adult) (pediatric)
CPT/HCPCS: 93306

== ENCOUNTER 2020-03-21 17:56 | Emergency (ER) | payer MEDICARE ==
[~2020-03-21] VITALS: Ht 149.8 cm; Wt 93.0 kg
[2020-03-21] MEDS ORDERED: ONDANSETRON 4 MG/2 ML (SDV) Z0FRAN IVP ONE (18:00)
[2020-03-21] MEDS ORDERED: NS IV 500 ML 500 ML IV SCH (18:00)
[2020-03-21] MEDS ORDERED: KETOROLAC 30 MG/ML VIAL IVP ONE (18:00)
--- NOTE | 2020-03-21 18:06 | ED General ---
General Chief Complaint: General Problems/Pain Stated Complaint: WEAKNESS Source of Information: Patient Exam Limitations: No Limitations History of Present Illness Date Seen by Provider: Mar 21, 2020 Time Seen by Provider: 18:01 Initial Comments To ER per EMS from home with reports of general weakness nausea and body aches. She is Covid positive and tested positive on March 10. She is type I diabetic. States her blood sugars have been high in about the 170 range. Timing/Duration: 1-2 Days Severity: Moderate Associated Systoms: Weakness Allergies and Home Medications Allergies Coded Allergies: No Known Drug Allergies (Verified , 07/18/09) Home Medications Apixaban 5 Mg Tablet, 5 MG PO BID, (Reported) Digoxin 250 Mcg Tablet, 250 MCG PO DAILY, (Reported) Folic Acid 1 Mg Tablet, 1 MG PO DAILY, (Reported) Furosemide 40 Mg Tablet, 40 MG PO DAILY, (Reported) Insulin Aspart 100 Unit/1 Ml Susp, 5 UNIT SC AC from pre-filled pen give 5 units of insulin with meals Prescribed by: CB SOTO on 05/05/17921 Insulin Determir 1,000 Units/10 Ml Soln, 30 UNIT SQ DAILY@1200 from pre-filled pen give 30 units of levemir at lunch - (pharmacy may dis pense formulary alternative) Prescribed by: CB SOTO on 05/05/17921 Lisinopril 5 Mg Tablet, 5 MG PO DAILY, (Reported) Magnesium Oxide 400 Mg Tablet, 400 MG PO DAILY, (Reported) Metoprolol Succinate 100 Mg Tab.er.24h, 100 MG PO DAILY, (Reported) Nitroglycerin 0.4 Mg Tab.subl, 0.4 MG PO PRN PRN for CHEST PAIN, (Reported) Potassium Chloride 10 Meq Tablet.er, 10 MEQ PO DAILY, (Reported) Tramadol HCl 50 Mg Tablet, 50 MG PO Q6HR PRN for PAIN-MILD, (Reported) Patient Home Medication List Home Medication List Reviewed: Yes Review of Systems Review of Systems Constitutional: see HPI, weakness EENTM: see HPI Respiratory: no symptoms reported Cardiovascular: no symptoms reported Genitourinary: no symptoms reported Musculoskeletal: no symptoms reported Skin: no symptoms reported Hematologic/Lymphatic: No Symptoms Reported Immunological/Allergic: no symptoms reported Past Phvlsdg-Qubnwm-Fkqyvx Hx Patient Social History Recent Hopitalizations: No Immunizations Up To Date Date of Pneumonia Vaccine: Apr 21, 2013 Date of Influenza Vaccine: Feb 04, 2017 Seasonal Allergies Seasonal Allergies: No Past Medical History Surgeries: Yes (RIGHT KNEE SURGERY) Orthopedic Respiratory: No (RECENTLY DIAGNOSED, HASN'T HAD TIME TO GET CPAP SET UP) Sleep Apnea Currently Using CPAP: Yes (3MONTHS SINCE STARTED USING IT) Cardiac: Yes (ANEMIA-THALACEMIA MINOR, LYMPHEDEMA, 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) Atrial Fibrillation, Hypertension Neurological: Yes (PT STATES HAD MIGRAINES IN HER 30'S) Reproductive Disorders: No Sexually Transmitted Disease: No HIV/AIDS: No Gastrointestinal: No Musculoskeletal: Yes Osteoporosis Endocrine: Yes Diabetes, Non-Insulin dep HEENT: Yes Cataract Cancer: No Psychosocial: No Anxiety Integumentary: No Blood Disorders: No Family Medical History FHx: heart disease 19 MOTHER No Pertinent Family Hx Physical Exam Vital Signs Vital Signs - First Documented 03/21/20 17:56 Temp 36.3 Pulse 94 Resp 18 B/P (MAP) 130/98 (109) Pulse Ox 95 Capillary Refill : Height, Weight, BMI Height: 5'9.00" Weight: 233lbs. 0.0oz. 105.971071po; 32.32 BMI Method:Stated General Appearance: No Apparent Distress, WD/WN, Other (Alert and oriented no distress oxygen saturation is 95 to 97% with good waveform on room air here. She is on Eliquis for history of atrial fibrillation followed by Dr. Carlos. Lungs are clear with good air movement her blood pressure and heart rate are within normal ranges. She speaks in full sentences without distress. She does report some nausea and general body aches.) Eyes: Bilateral Eye Normal Inspection, Bilateral Eye PERRL, Bilateral Eye EOMI Neck: Full Range of Motion, Normal Inspection Respiratory: No Accessory Muscle Use, No Respiratory Distress Cardiovascular: Regular Rate, Rhythm, Normal Peripheral Pulses Gastrointestinal: Normal Bowel Sounds, Non Tender, Soft Extremity: Normal Capillary Refill, Normal Inspection Neurologic/Psychiatric: Alert, Oriented x3 Skin: Normal Color, Warm/Dry Focused Exam Lactate Level 03/21/20 17:58: Lactic Acid Level 1.36 Lactic Acid Level Laboratory Tests Test 03/21/20 17:58 Lactic Acid Level 1.36 MMOL/L (0.50-2.00) Progress/Results/Core Measures Suspected Sepsis SIRS Temperature: Pulse: Respiratory Rate: Laboratory Tests 03/21/20 17:58: White Blood Count 6.7 Blood Pressure / Mean: 03/21/20 17:58: Lactic Acid Level 1.36 Laboratory Tests 03/21/20 17:58: Creatinine 0.78, Platelet Count 240, Total Bilirubin 0.5 Results/Orders Lab Results Laboratory Tests Test 03/21/20 17:58 03/21/20 19:19 03/21/20 19:37 Range/Units White Blood Count 6.7 4.3-11.0 10^3/uL Red Blood Count 5.38 H 3.80-5.11 10^6/uL Hemoglobin 9.8 L 11.5-16.0 g/dL Hematocrit 33 L 35-52 % Mean Corpuscular Volume 61 L 80-99 fL Mean Corpuscular Hemoglobin 18 L 25-34 pg Mean Corpuscular Hemoglobin Concent 30 L 32-36 g/dL Red Cell Distribution Width 16.3 H 10.0-14.5 % Platelet Count 240 130-400 10^3/uL Mean Platelet Volume 9.0-12.2 fL Immature Granulocyte % (Auto) 1 % Neutrophils (%) (Auto) 79 H 42-75 % Lymphocytes (%) (Auto) 12 12-44 % Monocytes (%) (Auto) 8 0-12 % Eosinophils (%) (Auto) 0 0-10 % Basophils (%) (Auto) 0 0-10 % Neutrophils # (Auto) 5.2 1.8-7.8 10^3/uL Lymphocytes # (Auto) 0.8 L 1.0-4.0 10^3/uL Monocytes # (Auto) 0.6 0.0-1.0 10^3/uL Eosinophils # (Auto) 0.0 0.0-0.3 10^3/uL Basophils # (Auto) 0.0 0.0-0.1 10^3/uL Immature Granulocyte # (Auto) 0.0 0.0-0.1 10^3/uL D-Dimer 0.86 H 0.00-0.49 UG/ML Sodium Level 133 L 135-145 MMOL/L Potassium Level 3.5 L 3.6-5.0 MMOL/L Chloride Level 96 L 98-107 MMOL/L Carbon Dioxide Level 28 21-32 MMOL/L Anion Gap 9 5-14 MMOL/L Blood Urea Nitrogen 12 7-18 MG/DL Creatinine 0.78 0.60-1.30 MG/DL Estimat Glomerular Filtration Rate > 60 BUN/Creatinine Ratio 15 Glucose Level 165 H 70-105 MG/DL Lactic Acid Level 1.36 0.50-2.00 MMOL/L Calcium Level 8.1 L 8.5-10.1 MG/DL Corrected Calcium 8.3 L 8.5-10.1 MG/DL Total Bilirubin 0.5 0.1-1.0 MG/DL Aspartate Amino Transf (AST/SGOT) 35 H 5-34 U/L Alanine Aminotransferase (ALT/SGPT) 29 0-55 U/L Alkaline Phosphatase 44 40-136 U/L B-Type Natriuretic Peptide 125.3 H <100.0 PG/ML Total Protein 7.1 6.4-8.2 GM/DL Albumin 3.8 3.2-4.5 GM/DL Procalcitonin 0.14 H <0.10 NG/ML Urine Color YELLOW Urine Clarity CLEAR Urine pH 5.5 5-9 Urine Specific [place] 1.020 1.016-1.022 Urine Protein TRACE H NEGATIVE Urine Glucose (UA) NEGATIVE NEGATIVE Urine Ketones NEGATIVE NEGATIVE Urine Nitrite NEGATIVE NEGATIVE Urine Bilirubin NEGATIVE NEGATIVE Urine Urobilinogen 0.2 < = 1.0 MG/DL Urine Leukocyte Esterase NEGATIVE NEGATIVE Urine RBC (Auto) NEGATIVE NEGATIVE Urine RBC NONE /HPF Urine WBC NONE /HPF Urine Crystals PRESENT H /LPF Urine Amorphous Sediment MOD ROSALIE URATES H /LPF Urine Bacteria TRACE /HPF Urine Casts NONE /LPF Urine Mucus SMALL H /LPF Urine Culture Indicated NO Glucometer 154 H 70-110 MG/DL My Orders Orders - KP MELENDEZ GASTROENTEROLOGY NURSE PRACTITIONER Cbc With Automated Diff (03/21/20 17:59) Comprehensive Metabolic Panel (03/21/20 17:59) Procalcitonin (Pct) (03/21/20 17:59) Ua Culture If Indicated (03/21/20 17:59) Chest 1 View, Ap/Pa Only (03/21/20 17:59) BNP (03/21/20 17:59) Lactic Acid Analyzer (03/21/20 17:59) Ed Iv/Invasive Line Start (03/21/20 17:59) Ketorolac Injection (Toradol Injection) (03/21/20 18:00) Ondansetron Injection (Zofran Injectio (03/21/20 18:00) Ns Iv 500 Ml (Sodium Chloride 0.9%) (03/21/20 18:00) Rx-Ondansetron Po (Rx-Zofran Po) (03/21/20 18:53) Fibrin Degradation Products (03/21/20 19:24) Tramadol Tablet (Ultram Tablet) (03/21/20 21:00) Tramadol Tablet (Ultram Tablet) (03/21/20 20:45) Medications Given in ED Current Medications Medications Dose Ordered Sig/Joao Route Start Time Stop Time Status Last Admin Dose Admin Ketorolac Tromethamine 15 mg ONCE ONCE IVP 03/21/20 18:00 03/21/20 18:01 DC 03/21/20 18:12 15 MG Ondansetron HCl 8 mg ONCE ONCE IVP 03/21/20 18:00 03/21/20 18:01 DC 03/21/20 18:11 8 MG Tramadol HCl 50 mg ONCE ONCE PO 03/21/20 21:00 03/21/20 21:01 DC 03/21/20 20:54 50 MG Vital Signs/I&O 03/21/20 17:56 Temp 36.3 Pulse 94 Resp 18 B/P (MAP) 130/98 (109) Pulse Ox 95 Capillary Refill : Diagnostic Imaging Diagonstic Imaging: Xray Plain Films/CT/US/NM/MRI: chest Comments NAME: KELLY TAPIA [facility] REC#: [id number] PT STATUS: REG ER : 1940 PHYSICIAN: KP MELENDEZ APRN ADMIT DATE: 03/21/20/ER Draft Date of Exam:03/21/20 CHEST 1 VIEW, AP/PA ONLY EXAMINATION: Chest 1 view HISTORY: Weakness, COVID positive. COMPARISON: Chest radiograph 01/15/2017 FINDINGS: Heart size is enlarged. Pulmonary vasculature are normal. There are patchy interstitial and airspace opacities within the right mid and lower lung as well as the left lower lung. No pleural effusion or pneumothorax. The osseous structures are intact. IMPRESSION: 1. Patchy interstitial and airspace opacities within the right mid lung and bilateral lower lungs compatible with multifocal pneumonia and history of COVID-19. Dictated on workstation # [id number] Dict: 03/21/201832 Trans: 03/21/201836 [facility] [id number] Interpreted by: JASMYN MAHER DO Electronically signed by: Departure Communication (Admissions) [id number]-she states she does not feel any better. However when asked if she has nausea she shakes her head no.. She did have nausea on arrival. She states she is uncomfortable and would like to lay the bed back flatter, she would like a glass of water. Impression Primary Impression: COVID-19 Disposition: 01 HOME, SELF-CARE Condition: Stable Departure-Patient Inst. Decision time for Depature: 18:57 Referrals: JOE PEGUERO MD (PCP/Family) Primary Care Physician Patient Instructions: Coronavirus Disease 2019 (COVID-19) (DC) Add. Discharge Instructions: 1. Tylenol and ibuprofen for pain or fever controls. Use the nausea medication as needed. Emergency department focuses on treating and ruling out life-threatening diseases. Whenever possible, a diagnosis is given. However, most patients are given an impression based on their history, physical exam, and workup during your brief time in the ER. Information about probable diagnosis and other educational material has been provided. Please take the time to read and understand this information. It is very important that you follow up with a physician as discussed during the visit today. Failure to adhere to your follow-up instructions may lead to severe disability, injury, or so please make sure to keep your appointments or obtain one as requested. All discharge instructions reviewed with patient and/or family. Voiced understanding. KP MELENDEZ APRN Mar 21, 2020 18:06
[2020-03-21 18:18] LABS: EOSINOPHILS % (AUTO) 0 % (0-10); MEAN CORPUSCULAR HEMOGLOBIN 18 pg (25-34)
[2020-03-21 18:20] LABS: BASOPHILS % (AUTO) 0 % (0-10); HEMATOCRIT 33 % (35-52); HEMOGLOBIN 9.8 g/dL (11.5-16.0); LYMPHOCYTES # (AUTO) 0.8 10^3/uL (1.0-4.0); LYMPHOCYTES % (AUTO) 12 % (12-44); MEAN CORPUSCULAR HGB CONC 30 g/dL (32-36); MEAN CORPUSCULAR VOLUME 61 fL (80-99); MONOCYTES # (AUTO) 0.6 10^3/uL (0.0-1.0); MONOCYTES % (AUTO) 8 % (0-12); NEUTROPHILS # (AUTO) 5.2 10^3/uL (1.8-7.8); NEUTROPHILS % (AUTO) 79 % (42-75); PLATELET COUNT 240 10^3/uL (130-400); WHITE BLOOD COUNT 6.7 10^3/uL (4.3-11.0)
[2020-03-21 18:28] LABS: ALBUMIN 3.8 GM/DL (3.2-4.5); CHLORIDE 96 MMOL/L (98-107); POTASSIUM 3.5 MMOL/L (3.6-5.0); SODIUM 133 MMOL/L (135-145)
[2020-03-21 18:30] LABS: CALCIUM 8.1 MG/DL (8.5-10.1)
[2020-03-21 18:31] LABS: GLUCOSE 165 MG/DL (70-105); TOTAL PROTEIN 7.1 GM/DL (6.4-8.2)
[2020-03-21 18:32] LABS: CARBON DIOXIDE 28 MMOL/L (21-32)
[2020-03-21 18:33] LABS: BILIRUBIN,TOTAL 0.5 MG/DL (0.1-1.0)
[2020-03-21 18:34] LABS: ALKALINE PHOSPHATASE 44 U/L (40-136); CREATININE SERUM 0.78 MG/DL (0.60-1.30); GFR ESTIMATED > 60
[2020-03-21 18:35] LABS: BUN/CREATININE RATIO 15
[2020-03-21 18:37] LABS: ALANINE AMINOTRANSFERASE 29 U/L (0-55)
--- NOTE | 2020-03-21 18:38 | Diagnostic Imaging Report ---
EXAMINATION: Chest 1 view HISTORY: Weakness, COVID positive. COMPARISON: Chest radiograph 01/15/2017 FINDINGS: Heart size is enlarged. Pulmonary vasculature are normal. There are patchy interstitial and airspace opacities within the right mid and lower lung as well as the left lower lung. No pleural effusion or pneumothorax. The osseous structures are intact. IMPRESSION: 1. Patchy interstitial and airspace opacities within the right mid lung and bilateral lower lungs compatible with multifocal pneumonia and history of COVID-19. Dictated by: Dictated on workstation # [id number]
[2020-03-21] MEDS ORDERED: RX-ONDANSETRON 4 MG ODT (ZOFRAN) PPK #4 PO STA (18:53)
[2020-03-21 19:34] LABS: BILIRUBIN,URINE NEGATIVE (NEGATIVE); CLARITY,URINE CLEAR; COLOR,URINE YELLOW; GLUCOSE, URINE (UA) NEGATIVE (NEGATIVE); KETONES,URINE NEGATIVE (NEGATIVE); LEUKOCYTE ESTERASE ,URINE NEGATIVE (NEGATIVE); NITRITE,URINE NEGATIVE (NEGATIVE); PH,URINE 5.5 (5-9); PROTEIN,URINE TRACE (NEGATIVE)
[2020-03-21 19:50] LABS: AMORPHOUS SEDIMENT,UR MOD AMOR URATES /LPF; BACTERIA,URINE TRACE /HPF
[2020-03-21 21:51] VITALS: BP 135/70
== END 2020-03-21 21:54 | disposition home or self-care (01) ==
LOC: EDUNIT# 17:56 → ER 17:57
DX: U07.1 COVID-19 (principal); I48.91 Unspecified atrial fibrillation; I10 Essential (primary) hypertension; E10.9 Type 1 diabetes mellitus without complications; Z82.49 Family history of ischemic heart disease and other diseases of the circulatory system; Z95.5 Presence of coronary angioplasty implant and graft; Z79.01 Long term (current) use of anticoagulants
CPT/HCPCS: 36415; 71045; 80053; 81000; 82962; 83605; 83880; 84145; 85025; 85379

== ENCOUNTER 2020-03-22 17:31 | Emergency (ER) | payer MEDICARE ==
[~2020-03-22] VITALS: Ht 170 cm; Wt 73.0 kg
--- NOTE | 2020-03-22 18:38 | ED General ---
General Chief Complaint: Glucose Problems Stated Complaint: COVID +/DIABETES ISSUES Nursing Triage Note: PT ARRIVES TO ER BY [facility] WITH C/O GLUCOSE ISSUES POSSIBLY DUE TO COVID AND PNEUMONIA THAT HAS BEEN DIAGNOSED OVER THE LAST COUPLE OF WEEKS. PT HAD A COVID POSITIVE TEST 2 WEEKS AGO. PT STATES SHE HAS NO MOVITATION TO EAT AND NO APPETITE. EMS GLUCOSE READING WAS 174 ON ARRIVAL TO HER HOUSE Nursing Sepsis Screen: No Definite Risk Source of Information: Patient Exam Limitations: No Limitations History of Present Illness Date Seen by Provider: Mar 22, 2020 Time Seen by Provider: 17:30 Initial Comments Patient is a 79-year-old female who presents to the emergency room today with a chief complaint of generalized weakness. Patient was Covid positive approximately 2 weeks ago on . Her quarantine was actually supposed to be up today. Patient was seen in the emergency department last night with similar complaints. 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 Patient had a well check by EMS this morning and then the health department went back in this afternoon to check on her. The patient was reportedly too weak to be able to feed herself. Patient's oxygen saturations per EMS were 96% on room air. The patient states that she just has no motivation as nothing tastes good. The patient was able to make herself peanut butter and jelly sandwich and has access to other food in her home but she states that she she just has no energy. Patient's blood sugar is 174 on EMS arrival. She states she is unsure if she should take her Metformin while she is not eating a normal appetite. The patient is able to drink her Glucerna shakes at home and eat some pudding and Jell-O. She states she just feels poorly. No complaints of chest pain no significant shortness of breath. No abdominal pain no diarrhea. No persistent fevers. She does have caregivers in the home. All other review of systems reviewed and negative except as stated above. Timing/Duration: 1 Week Severity: Mild Associated Systoms: No Chest Pain, No Cough, No Fever/Chills; Headaches (Occasional headache), Loss of Appetite; No Nausea/Vomiting Allergies and Home Medications Allergies Coded Allergies: No Known Drug Allergies (Verified , 07/18/09) Home Medications Apixaban 5 Mg Tablet, 5 MG PO BID, (Reported) Digoxin 250 Mcg Tablet, 250 MCG PO DAILY, (Reported) Folic Acid 1 Mg Tablet, 1 MG PO DAILY, (Reported) Furosemide 40 Mg Tablet, 40 MG PO DAILY, (Reported) Insulin Aspart 100 Unit/1 Ml Susp, 5 UNIT SC AC from pre-filled pen give 5 units of insulin with meals Prescribed by: CB SOTO on 05/05/17921 Insulin Determir 1,000 Units/10 Ml Soln, 30 UNIT SQ DAILY@1200 from pre-filled pen give 30 units of levemir at lunch - (pharmacy may dispense formulary alternative) Prescribed by: CB SOTO on 05/05/17921 Lisinopril 5 Mg Tablet, 5 MG PO DAILY, (Reported) Magnesium Oxide 400 Mg Tablet, 400 MG PO DAILY, (Reported) Metoprolol Succinate 100 Mg Tab.er.24h, 100 MG PO DAILY, (Reported) Nitroglycerin 0.4 Mg Tab.subl, 0.4 MG PO PRN PRN for CHEST PAIN, (Reported) Potassium Chloride 10 Meq Tablet.er, 10 MEQ PO DAILY, (Reported) Tramadol HCl 50 Mg Tablet, 50 MG PO Q6HR PRN for PAIN-MILD, (Reported) Patient Home Medication List Home Medication List Reviewed: Yes Review of Systems Review of Systems Constitutional: see HPI EENTM: no symptoms reported Respiratory: no symptoms reported Cardiovascular: no symptoms reported Gastrointestinal: loss of appetite Genitourinary: no symptoms reported Musculoskeletal: no symptoms reported Skin: no symptoms reported Psychiatric/Neurological: Denies Headache; Weakness (Generalized weakness) All Other Systems Reviewed Negative Unless Noted: Yes Past Gycbkqc-Krhxef-Gnumxn Hx Patient Social History Alcohol Use: Denies Use Recreational Drug Use: No 2nd Hand Smoke Exposure: No Recent Foreign Travel: No Contact w/Someone Who Travel: No Recent Infectious Disease Expo: No Recent Hopitalizations: No Immunizations Up To Date Tetanus Booster (TDap): Unknown Date of Pneumonia Vaccine: Apr 21, 2013 Date of Influenza Vaccine: Jan 20, 2020 Seasonal Allergies Seasonal Allergies: No Past Medical History Surgeries: Yes (RIGHT KNEE SURGERY) Orthopedic Respiratory: No (RECENTLY DIAGNOSED, HASN'T HAD TIME TO GET CPAP SET UP) Sleep Apnea Currently Using CPAP: Yes (3MONTHS SINCE STARTED USING IT) Cardiac: Yes (ANEMIA-THALACEMIA MINOR, LYMPHEDEMA, 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) Atrial Fibrillation, Hypertension Neurological: Yes (PT STATES HAD MIGRAINES IN HER 30'S) Reproductive Disorders: No Sexually Transmitted Disease: No HIV/AIDS: No Gastrointestinal: No Musculoskeletal: Yes Osteoporosis Endocrine: Yes Diabetes, Non-Insulin dep HEENT: Yes Cataract Cancer: No Psychosocial: No Anxiety Integumentary: No Blood Disorders: No Family Medical History FHx: heart disease 19 MOTHER No Pertinent Family Hx Physical Exam Vital Signs Vital Signs - First Documented 03/22/20 17:34 Temp 36.3 Pulse 79 Resp 18 B/P (MAP) 133/88 (103) Pulse Ox 96 O2 Delivery Room Air Capillary Refill : Less Than 3 Seconds Height, Weight, BMI Height: 5'9.00" Weight: 233lbs. 0.0oz. 105.140547aq; 25.00 BMI Method:Stated General Appearance: No Apparent Distress, WD/WN Eyes: Bilateral Eye Normal Inspection, Bilateral Eye PERRL, Bilateral Eye EOMI HEENT: Pharynx Normal Respiratory: Lungs Clear, Normal Breath Sounds, No Accessory Muscle Use, No Respiratory Distress Cardiovascular: Regular Rate, Rhythm Gastrointestinal: Normal Bowel Sounds, Non Tender, Soft Back: Normal Inspection Extremity: Normal Range of Motion, Non Tender, No Calf Tenderness Neurologic/Psychiatric: Alert, Oriented x3, No Motor/Sensory Deficits, Normal Mood/Affect Skin: Normal Color, Warm/Dry Progress/Results/Core Measures Suspected Sepsis Recent Fever Within 48 Hours: No Infection Criteria Present: Documented Infection New/Unexplained Altered Menta: No Sepsis Screen: No Definite Risk SIRS Temperature: Pulse: 79 Respiratory Rate: 18 Blood Pressure 133 /88 Mean: 103 Results/Orders Vital Signs/I&O 03/22/20 17:34 Temp 36.3 Pulse 79 Resp 18 B/P (MAP) 133/88 (103) Pulse Ox 96 O2 Delivery Room Air Capillary Refill : Less Than 3 Seconds Blood Pressure Mean: 103 Progress Note : Time: 18:35 Progress Note 79-year-old female presents to the emergency room with a chief complaint of generalized weakness and lack of motivation to feed herself. Evaluation today includes a physical exam. Patient does not appear clinically dehydrated. She does appear like she does not feel well. Vital signs are completely stable, she is not tachycardic she is not hyper or hypotensive. Oxygen saturations are 93 to 96% on room air, she is not tachypneic. The patient is encouraged to find the motivation to eat. I discussed the course and scope of the loss of taste and smell with the patient related to the coronavirus. She verbalizes understanding. She has no clinical or objective findings to warrant extensive laboratory evaluation or x-rays here in the emergency department. Patient is advised to eat as best she can and stay well-hydrated. She verbalizes understanding. All questions are sought and answered. Patient is stable for discharge. ECG Initial ECG Impression: 2nd Degree AV Block Departure Impression Primary Impression: Generalized weakness Additional Impression: Coronavirus infection Disposition: HOME, SELF-CARE Condition: Stable Departure-Patient Inst. Decision time for Depature: 18:39 Referrals: JOE PEGUERO MD (PCP/Family) Primary Care Physician Patient Instructions: Coronavirus Disease 2019 (COVID-19) (DC) Add. Discharge Instructions: Drink plenty of fluids to stay well-hydrated. Eat small frequent meals throughout the day to keep up with your nutrition. Please call your primary care physician tomorrow for a follow-up appointment. Return to the emergency department for reevaluation for any worsening shortness of breath, chest pain, other emergent concerning symptoms. GIGI GUADALUPE MD Mar 22, 2020 18:38
[2020-03-22 19:12] VITALS: BP 133/88
--- NOTE | 2020-03-22 19:14 | NUR ---
PT WAS UPSET ABOUT NOT GETTING ADMITTED AGAIN. WE ASKED WHAT WE CAN DO TO HELP AND SHE REPLIED THAT SHE DIDNT NEED ANY HELP. PATIENT'S FRIEND WAS EXTREMELY UPSET AND CRYING AND RAISING HER VOICE AT ME WHEN SHE PICKED HER UP BECAUSE WE WERE SUPPOSED TO ADMIT HER. I TRIED EXPLAINING EVERYTHING AGAIN TO THE RIDE AND TO THE PATIENT AND THEY JUST GOT UPSET AND DROVE AWAY.
--- NOTE | 2020-03-22 19:43 | NUR ---
HELEN NAVARRO, PATIENTS BROTHER, PHONE CALL AND WE HAD A PLEASANT CONVERSATION ABOUT HER CARE. I EXPLAINED TO HIM WHAT DR GUADALUPE TOLD THE PATIENT AND THAT SHE DOES NOT QUALIFY FOR ANY REASON TO BE ADMITTED TODAY OR YESTERDAY. I EXPLAINED WHY EMS WAS CALLED TO HER HOUSE TO DO A CHECK ON HER. I TOLD HIM WE OFFERED MANY SERVICES TO HER IF SHE NEEDED THEM AND THAT SHE DECLINED ALL OFFERS AND SAID SHE COULD TAKE CARE OF HERSELF. PATIENTS BROTHER WAS VERY UNDERSTANDING AND ACCEPTING OF OUR DECISION.
== END 2020-03-22 19:07 | disposition home or self-care (01) ==
LOC: EDUNIT# 17:31 → ER 17:32
DX: R53.1 Weakness (principal); U07.1 COVID-19; I48.91 Unspecified atrial fibrillation; E11.9 Type 2 diabetes mellitus without complications; I10 Essential (primary) hypertension; Z82.49 Family history of ischemic heart disease and other diseases of the circulatory system; Z95.5 Presence of coronary angioplasty implant and graft; Z79.01 Long term (current) use of anticoagulants
CPT/HCPCS: 99283